=== PATIENT | male | born 1995 | race Caucasian/White ===

== ENCOUNTER → 2019-07-21 18:41 | Outpatient (BNVA) | payer OTHER, SELFPAY | PROVIDERS: Family Provider Internal Medicine; Visit Provider Nurse Practitioner | DX: S99.922A Unspecified injury of left foot, initial encounter (principal); X58.XXXA Exposure to other specified factors, initial encounter | CPT/HCPCS: 73630 ==

== ENCOUNTER → 2019-11-29 13:49 | Outpatient (BNVA) | payer OTHER, SELFPAY | PROVIDERS: Family Provider Internal Medicine; Visit Provider Psychiatry & Neurology Psychiatry | DX: F33.2 Major depressive disorder, recurrent severe without psychotic features (principal); F41.1 Generalized anxiety disorder; F11.21 Opioid dependence, in remission; F12.20 Cannabis dependence, uncomplicated; F43.12 Post-traumatic stress disorder, chronic | CPT/HCPCS: 99204 ==

== ENCOUNTER → 2020-01-08 08:04 | Outpatient (BNVA) | payer OTHER, SELFPAY | PROVIDERS: Family Provider Internal Medicine; Visit Provider Psychiatry & Neurology Psychiatry | DX: F41.1 Generalized anxiety disorder (principal); F33.2 Major depressive disorder, recurrent severe without psychotic features; F12.20 Cannabis dependence, uncomplicated; F11.21 Opioid dependence, in remission; F90.2 Attention-deficit hyperactivity disorder, combined type | CPT/HCPCS: 99214 ==

== ENCOUNTER → 2020-02-12 09:31 | Outpatient (BNVA) | payer OTHER, SELFPAY | PROVIDERS: Family Provider Internal Medicine; Visit Provider Psychiatry & Neurology Psychiatry | DX: F41.1 Generalized anxiety disorder (principal); F33.2 Major depressive disorder, recurrent severe without psychotic features; F11.21 Opioid dependence, in remission; F12.20 Cannabis dependence, uncomplicated | CPT/HCPCS: 99214 ==

== ENCOUNTER → 2020-02-14 17:49 | Outpatient (BNVA) | payer OTHER, SELFPAY | PROVIDERS: Family Provider Internal Medicine; Visit Provider Nurse Practitioner Family | DX: Z20.828 Contact with and (suspected) exposure to other viral communicable diseases (principal) | CPT/HCPCS: 87635 ==

== ENCOUNTER → 2020-02-17 11:49 | Outpatient (BNVA) | payer OTHER, SELFPAY | PROVIDERS: Family Provider Internal Medicine; Visit Provider Nurse Practitioner | DX: J02.9 Acute pharyngitis, unspecified (principal); J06.9 Acute upper respiratory infection, unspecified | CPT/HCPCS: 87071; 87880 ==

== ENCOUNTER → 2020-03-11 11:50 | Outpatient (BNVA) | payer OTHER, SELFPAY | PROVIDERS: Family Provider Internal Medicine; Visit Provider Psychiatry & Neurology Psychiatry | DX: F11.21 Opioid dependence, in remission (principal); F33.2 Major depressive disorder, recurrent severe without psychotic features; F41.1 Generalized anxiety disorder | CPT/HCPCS: 80307; 99213 ==

== ENCOUNTER → 2020-04-24 08:15 | Outpatient (BNVA) | payer OTHER, SELFPAY | PROVIDERS: Family Provider Internal Medicine; Visit Provider Psychiatry & Neurology Psychiatry | DX: F12.20 Cannabis dependence, uncomplicated (principal); F11.21 Opioid dependence, in remission; F41.1 Generalized anxiety disorder; F33.2 Major depressive disorder, recurrent severe without psychotic features | CPT/HCPCS: 99214 ==

== ENCOUNTER → 2020-06-19 09:45 | Outpatient (BNVA) | payer OTHER, SELFPAY | PROVIDERS: Family Provider Internal Medicine; Visit Provider Psychiatry & Neurology Psychiatry | DX: F41.1 Generalized anxiety disorder (principal); F33.2 Major depressive disorder, recurrent severe without psychotic features; F98.8 Other specified behavioral and emotional disorders with onset usually occurring in childhood and adolescence; F12.20 Cannabis dependence, uncomplicated; F11.21 Opioid dependence, in remission | CPT/HCPCS: 80307; 99214 ==

== ENCOUNTER → 2020-08-15 18:06 | Outpatient (BNVA) | payer OTHER, SELFPAY | PROVIDERS: Family Provider Internal Medicine; Visit Provider Nurse Practitioner | DX: J02.9 Acute pharyngitis, unspecified (principal) | CPT/HCPCS: 87880 ==

== ENCOUNTER → 2020-09-25 00:01 | Outpatient (BNVA) | payer OTHER, SELFPAY | PROVIDERS: Family Provider Internal Medicine; Visit Provider Psychiatry & Neurology Psychiatry | DX: F11.21 Opioid dependence, in remission (principal); F12.20 Cannabis dependence, uncomplicated; F41.1 Generalized anxiety disorder; F33.2 Major depressive disorder, recurrent severe without psychotic features; F98.8 Other specified behavioral and emotional disorders with onset usually occurring in childhood and adolescence | CPT/HCPCS: 80307 ==

== ENCOUNTER → 2020-10-03 10:06 | Outpatient (BNVA) | payer OTHER, SELFPAY | PROVIDERS: Family Provider Internal Medicine; Visit Provider Psychiatry & Neurology Psychiatry | DX: F12.20 Cannabis dependence, uncomplicated (principal); F11.21 Opioid dependence, in remission; F41.1 Generalized anxiety disorder; F33.2 Major depressive disorder, recurrent severe without psychotic features | CPT/HCPCS: 80307 ==

== ENCOUNTER → 2020-10-04 16:46 | Outpatient (BNVA) | payer OTHER, SELFPAY | PROVIDERS: Family Provider Internal Medicine; Visit Provider Registered Nurse Neonatal Intensive Care | DX: Z20.822 Contact with and (suspected) exposure to COVID-19 (principal) | CPT/HCPCS: 87635 ==

== ENCOUNTER → 2020-10-29 13:47 | Outpatient (BNVA) | payer SELFPAY | PROVIDERS: Family Provider Internal Medicine; Visit Provider Family Medicine Adult Medicine | DX: K51.90 Ulcerative colitis, unspecified, without complications (principal); R68.89 Other general symptoms and signs; Z83.49 Family history of other endocrine, nutritional and metabolic diseases; Z13.6 Encounter for screening for cardiovascular disorders; Z87.39 Personal history of other diseases of the musculoskeletal system and connective tissue | CPT/HCPCS: 80053; 83036; 84443; 85025; 86140; 86431 ==

== ENCOUNTER → 2021-03-31 13:10 | Outpatient (BNVA) | payer OTHER, MEDICAID, SELFPAY | PROVIDERS: Family Provider Internal Medicine; PCP Family Medicine Adult Medicine; Referring Provider Psychiatry & Neurology Psychiatry; Visit Provider Psychiatry & Neurology Psychiatry | DX: Z79.899 Other long term (current) drug therapy (principal) | CPT/HCPCS: 80307 ==

== ENCOUNTER → 2021-04-30 14:17 | Outpatient (BNVA) | payer MEDICAID, SELFPAY | PROVIDERS: Family Provider Internal Medicine; PCP Family Medicine Adult Medicine; Visit Provider Nurse Practitioner Psychiatric/Mental Health | DX: Z03.89 Encounter for observation for other suspected diseases and conditions ruled out (principal); Z79.899 Other long term (current) drug therapy | CPT/HCPCS: 80306 ==

== ENCOUNTER → 2021-05-13 13:51 | Outpatient (BNVA) | payer OTHER, SELFPAY | PROVIDERS: Family Provider Internal Medicine; PCP Family Medicine Adult Medicine; Visit Provider Family Medicine Adult Medicine | DX: R39.15 Urgency of urination (principal); N32.89 Other specified disorders of bladder; Z87.39 Personal history of other diseases of the musculoskeletal system and connective tissue | CPT/HCPCS: 81000 ==

== ENCOUNTER → 2021-06-01 10:24 | Outpatient (BNVA) | payer OTHER, SELFPAY | PROVIDERS: Family Provider Internal Medicine; PCP Family Medicine Adult Medicine; Visit Provider Nurse Practitioner Psychiatric/Mental Health | DX: Z03.89 Encounter for observation for other suspected diseases and conditions ruled out (principal); Z79.899 Other long term (current) drug therapy | CPT/HCPCS: 80053; 82306 ==

== ENCOUNTER → 2021-06-05 12:48 | Outpatient (BNVA) | payer OTHER, MEDICAID, SELFPAY | PROVIDERS: Family Provider Internal Medicine; PCP Family Medicine Adult Medicine; Visit Provider Internal Medicine | DX: M25.50 Pain in unspecified joint (principal); K51.90 Ulcerative colitis, unspecified, without complications; M79.7 Fibromyalgia; L40.9 Psoriasis, unspecified; Z87.39 Personal history of other diseases of the musculoskeletal system and connective tissue | CPT/HCPCS: 36415; 72072; 72100; 72202; 73120; 82550; 82607; 84425; 84443; 85025; 86160; 86162; 86200; 86235; 86255; 86376; 86431; 86480; 86704; 86803; 87340 ==

== ENCOUNTER 2021-06-30 06:00 | Outpatient (RCR) | payer OTHER, SELFPAY | END 2021-07-28 23:59 | disposition home or self-care (01) | LOC: SPT 06:00 | PROVIDERS: Family Provider Internal Medicine; PCP Family Medicine Adult Medicine; Referring Provider Internal Medicine; Visit Provider Internal Medicine | DX: M54.50 Low back pain, unspecified (principal); M25.50 Pain in unspecified joint | CPT/HCPCS: 97110; 97161 ==

== ENCOUNTER → 2021-07-09 11:03 | Outpatient (BNVA) | payer OTHER, MEDICAID, SELFPAY | PROVIDERS: Family Provider Internal Medicine; PCP Family Medicine Adult Medicine; Visit Provider Psychiatry & Neurology Psychiatry | DX: J30.9 Allergic rhinitis, unspecified (principal); J02.8 Acute pharyngitis due to other specified organisms; B96.89 Other specified bacterial agents as the cause of diseases classified elsewhere; F11.21 Opioid dependence, in remission; Z79.899 Other long term (current) drug therapy; F41.1 Generalized anxiety disorder; F33.2 Major depressive disorder, recurrent severe without psychotic features; F43.9 Reaction to severe stress, unspecified | CPT/HCPCS: 80307 ==

== ENCOUNTER → 2021-07-23 12:33 | Outpatient (BNVA) | payer OTHER, MEDICAID, SELFPAY | PROVIDERS: Family Provider Internal Medicine; PCP Family Medicine Adult Medicine; Visit Provider Psychiatry & Neurology Psychiatry | DX: J30.9 Allergic rhinitis, unspecified (principal); J02.8 Acute pharyngitis due to other specified organisms; B96.89 Other specified bacterial agents as the cause of diseases classified elsewhere; F11.21 Opioid dependence, in remission; Z79.899 Other long term (current) drug therapy; F43.9 Reaction to severe stress, unspecified; F33.2 Major depressive disorder, recurrent severe without psychotic features; F41.1 Generalized anxiety disorder | CPT/HCPCS: 80307 ==

== ENCOUNTER 2021-07-29 06:00 | Outpatient (RCR) | payer OTHER, SELFPAY | END 2021-08-27 23:59 | disposition home or self-care (01) | LOC: SPT 06:00 | PROVIDERS: Family Provider Internal Medicine; PCP Family Medicine Adult Medicine; Referring Provider Internal Medicine; Visit Provider Internal Medicine | DX: M54.59 Other low back pain (principal); M25.50 Pain in unspecified joint | CPT/HCPCS: 97110 ==

== ENCOUNTER 2022-06-07 09:15 | Inpatient (IN) | payer BC, MEDICAID, SELFPAY ==
[2022-06-07 09:18] VITALS: BP 148/94; PULSE 72; RESP 16; TEMP 36.7; O2SAT 99
[2022-06-07 10:02] LABS: Basophils % 0.4 %; Eosinophils # 0.2 10^3/uL (0.0-0.8); Hemoglobin 14.3 g/dL (11.7-16.6); Lymphocytes # 1.3 10^3/uL (0.8-4.8); Lymphocytes % 17.5 %; Mean Corpuscular HGB Conc 32.5 g/dL (30.0-36.0); Mean Corpuscular Hemoglobin 31.1 pg (28.0-34.0); Mean Corpuscular Volume 95.7 fl (80-94); Mean Platelet Volume 11.6 fL (7.4-10.4); Monocytes # 0.4 10^3/uL (0.2-0.9); Monocytes % 4.8 %; Nucleated Red Blood Cells % 0 %; Platelet Count 108 10^3/cmm (130-400); Red Cell Distribution Width 12.9 % (12.1-15.1); White Blood Count 7.3 10^3/uL (4.0-10.0)
--- NOTE | 2022-06-07 10:02 | W.ED.PSYCHS ---
Documented by User: MARQUIS Urbano 06/07/22 15:16 HPI - Psych General: Chief Complaint: Psychiatric Symptoms Stated Complaint: MHE Time Seen by Provider: 06/07/22 09:23 History of Present Illness: Patient is a 27-year-old male comes to the ED with SI. Patient has a past medical history of bipolar 1 disorder, generalized anxiety and PTSD. He is compliant with all his medications but states that every now and then he does forget to take his daily mirtazapine at night before bed. Patient has a history of SI and says he has been hospitalized multiple times for SI as a teenager and once as an adult. Over the past 3 weeks he has been having increased thoughts of SI. He has a loss of interest in activities, difficulty concentrating, decreased energy and is sleeping more. Today he told his that he is having thoughts of suicide and he had a plan to overdose on Benadryl. Patient admits to using marijuana but denies any other drug or alcohol use. Denies any thoughts of HI, auditory or visual hallucinations. Denies any other symptoms. Patient denied any chest pain, but endorses some generalized anxiety. Associated symptoms: Reports depression and suicidal ideation; Deny auditory hallucinations, visual hallucinations or homicidal ideation Review of Systems Const: Denies: fever(s), chills or fatigue Eyes: Denies: change in vision or eye discomfort ENMT: Denies: throat pain, odynophagia, nasal discharge or nasal congestion Card: Denies: chest pain, palpitations, edema, swelling of feet/ankles, dyspnea on exertion or orthopnea Resp: Denies: dyspnea, productive cough or non-productive cough GI: Denies: abdominal pain, nausea, vomiting, diarrhea, constipation or hematochezia : Denies: flank pain, difficulty urinating, dysuria or hematuria Musc: Denies: neck pain, back pain or extremity swelling Skin/Breast: Denies: rash or new lesions Neuro: Denies: headache(s), numbness in extremities or weakness in extremities Psych: Reports: anxiety, depression, sleeping more, loss of interest, difficulty concentrating and suicidal ideation; Denies: visual hallucinations, auditory hallucinations or homicidal ideation PFS ED PFSH: Medical History ADD (attention deficit disorder) Diagnosed at age of 8 yr old Allergic rhinitis due to allergen Anxiety and depression Bilateral headache Bipolar I disorder, most recent episode mixed, severe without psychotic features Chronic nausea Dental infection Fibromyalgia History of juvenile rheumatoid arthritis Irritable bowel syndrome (IBS) Problems with constipation in November and December 2021 and episodes of diarrhea and March and April 2022. Opioid use disorder, severe, in sustained remission, dependence Peripheral neuropathy Psychiatric care Restless leg syndrome Ulcerative colitis Vitamin D deficiency Family History Other CAD (coronary artery disease) Cancer Hypertension Stroke Denies family history of Rheumatoid arthritis Diabetes Lupus Hyperlipidemia Chronic kidney disease (CKD) Social History Smoking and tobacco status: current some day smoker (vape user occasionally) e-cigarettes E-Cigarette Details: vaporizer device and with nicotine E-cig/vape details: Refill(50 mg)/1 - 1.5 weeks. Quit status (tobacco): has tried quititng Number of times tried to quit tobacco: 10 Second hand smoke exposure: No Alcohol intake: current Alcohol intake frequency: holidays/special occasions only Alcohol type: beer Caregiver/support person: No Lives independently: Yes Household members: spouse Marital status: Number of children: 1 service: No Current gender identity: Male Physical Exam Const: COMMON NORMALS: no acute distress, patient oriented x3 and alert HENMT: COMMON NORMALS: normocephalic HEAD & SCALP: normocephalic MOUTH: Normal oral and palatal mucosa present THROAT: posterior oropharynx normal and uvula midline Neck/C-Spine: COMMON NORMALS: supple GENERAL: Yes normal visual inspection Resp: COMMON NORMALS: normal respiratory effort, No retractions, No use of accessory muscles and clear to auscultation bilaterally AUSCULTATION: clear to auscultation bilaterally Cardio: COMMON NORMALS: regular rate, regular rhythm, S1 normal heart sound present, S2 normal heart sound present, No gallops present (Cardio), No clicks present (Cardio), No murmurs present (Cardio) and Peripheral pulses 2+ throughout RATE: regular rate RHYTHM: regular rhythm HEART SOUNDS: S1 normal heart sound present and S2 normal heart sound present PERIPHERAL PULSES: Peripheral pulses 2+ throughout GI: COMMON NORMALS: Normal to inspection, nondistended, normoactive bowel sounds present, Soft to palpation, non-tender and no masses PALPATION: Yes Soft to palpation : COMMON NORMALS: Yes no CVA tenderness BLADDER/KIDNEY EXAM: Yes no CVA tenderness Back/Pelvis: COMMON NORMALS: no CVA tenderness Extremity: COMMON NORMALS: normal to inspection Neuro: COMMON NORMALS: patient oriented x3 SENSORIUM/ORIENTATION: Yes alert GAIT: Yes Normal gait present Skin: GENERAL SKIN EXAM: dry skin Course Vital Signs: Vital signs: Vital Signs Temperature 98.1 F 06/07/22 09:18 Pulse Rate 74 06/07/22 12:10 Respiratory Rate 16 06/07/22 12:10 Blood Pressure 138/84 06/07/22 12:10 Pulse Oximetry 97 06/07/22 12:10 [facility] - Psych Medical Decision Making Patient is a 27-year-old male comes to the ED with SI. Patient has a history of past SI and has been diagnosed with bipolar 1 disorder, anxiety, PTSD. Denies any chest pain but endorses some anxiety. Patient was given a dose of p.o. Ativan and has anxiety improved. Vitals are stable rest of exam is benign patient appears in no acute distress or pain and he is very cooperative. Psych medical clearance labs performed. Chart reviewed and patient discussed with midlevel. Agree with assessment and plan. Orders written for admission for suicidal ideation Lab Data 06/07/22 09:54 06/07/22 09:54 Laboratory Results WBC 7.3 10^3/uL (4.0-10.0) 06/07/22 09:54 RBC 4.60 10^6/uL (4.1-5.3) 06/07/22 09:54 Hgb 14.3 g/dL (11.7-16.6) 06/07/22 09:54 Hct 44.0 % (42.0-52.0) 06/07/22 09:54 MCV 95.7 fl (80-94) H 06/07/22 09:54 MCH 31.1 pg (28.0-34.0) 06/07/22 09:54 MCHC 32.5 g/dL (30.0-36.0) 06/07/22 09:54 RDW 12.9 % (12.1-15.1) 06/07/22 09:54 Plt Count 108 10^3/cmm (130-400) L 06/07/22 09:54 MPV 11.6 fL (7.4-10.4) H 06/07/22 09:54 Neut % (Auto) 75.0 % 06/07/22 09:54 Lymph % (Auto) 17.5 % 06/07/22 09:54 Brooke % (Auto) 4.8 % 06/07/22 09:54 Eos % (Auto) 2.0 % 06/07/22 09:54 Baso % (Auto) 0.4 % 06/07/22 09:54 Neut # (Auto) 5.50 10^3/uL (1.8-7.7) 06/07/22 09:54 Lymph # (Auto) 1.3 10^3/uL (0.8-4.8) 06/07/22 09:54 Brooke # (Auto) 0.4 10^3/uL (0.2-0.9) 06/07/22 09:54 Eos # (Auto) 0.2 10^3/uL (0.0-0.8) 06/07/22 09:54 Baso # (Auto) 0.0 10^3/uL (0.0-0.1) 06/07/22 09:54 Nucleated RBC % (auto) 0 % 06/07/22 09:54 Nucleated RBCs # 0.0 /100WBC 06/07/22 09:54 Sodium 135 mmol/L (136-145) L 06/07/22 09:54 Potassium 3.6 mmol/L (3.5-5.1) 06/07/22 09:54 Chloride 98 mmol/L (98-107) 06/07/22 09:54 Carbon Dioxide 30 mmol/L (22-29) H 06/07/22 09:54 Anion Gap 10.6 (5-19) 06/07/22 09:54 BUN 11 mg/dL (6-20) 06/07/22 09:54 Creatinine 0.9 mg/dL (0.7-1.2) 06/07/22 09:54 GFR Calculation 101.2 mL/min (90-130) 06/07/22 09:54 Glucose 104 mg/dL (65-115) 06/07/22 09:54 Calculated Osmolality 280 mOsm/kg (285-295) L 06/07/22 09:54 Calcium 9.4 mg/dL (8.5-10.5) 06/07/22 09:54 Total Bilirubin 0.3 mg/dL (0.15-1.2) 06/07/22 09:54 AST 17 U/L (0-40) 06/07/22 09:54 ALT 18 U/L (0-41) 06/07/22 09:54 Alkaline Phosphatase 63 U/L (40-130) 06/07/22 09:54 Total Protein 6.8 g/dL (6.6-8.7) 06/07/22 09:54 Albumin 4.6 g/dL (3.5-5.2) 06/07/22 09:54 Globulin 2.2 g/dL (1.3-4.6) 06/07/22 09:54 Urine Color Yellow (Yellow) 06/07/22 09:50 Urine Appearance Clear (CLEAR) 06/07/22 09:50 Urine pH 7 (5-7) 06/07/22 09:50 Ur Specific [place] 1.010 (1.005-1.030) 06/07/22 09:50 Urine Protein Neg (Negative) 06/07/22 09:50 Urine Glucose (UA) Norm (Normal) 06/07/22 09:50 Urine Ketones Negative (Negative) 06/07/22 09:50 Urine Blood Neg (Negative) 06/07/22 09:50 Urine Nitrate Negative (Negative) 06/07/22 09:50 Urine Bilirubin Neg (Negative) 06/07/22 09:50 Urine Urobilinogen Neg mg/dL (Negative) 06/07/22 09:50 Ur Leukocyte Esterase Negative (Negative) 06/07/22 09:50 Salicylates < 0.3 mg/dL (3-10) L 06/07/22 09:54 Urine Opiates Screen Negative ng/mL (Negative) 06/07/22 09:50 Acetaminophen < 5.0 ug/mL (10-30) L 06/07/22 09:54 Ur Barbiturates Screen Negative ng/mL (Negative) 06/07/22 09:50 Ur Phencyclidine Scrn Negative ng/mL (Negative) 06/07/22 09:50 Ur Amphetamines Screen Negative ng/mL (Negative) 06/07/22 09:50 U Benzodiazepines Scrn Negative ng/mL (Negative) 06/07/22 09:50 Urine Cocaine Screen Negative ng/mL (Negative) 06/07/22 09:50 U Marijuana (THC) Screen Positive ng/mL (Negative) H 06/07/22 09:50 Ethyl Alcohol < 10 mg/dL (0-10) 06/07/22 09:54 Discharge Plan Discharge Patient Disposition: Admitted As Inpatient Clinical Impression: Suicidal ideation Condition: Stable Sign Out Sign Out Data: Patient Sign Out occurred on 06/07/22 at 14:53. Patient's care was discussed, and care was transferred from to Ed Decker DO. Coding Level of Care Code ED Labor Economics Professor for Chg Fwd Documented by User: Ed Decker DO 06/07/22 14:55 HPI - Psych General: Chief Complaint: Psychiatric Symptoms Stated Complaint: MHE Time Seen by Provider: 06/07/22 09:23 [facility] ED PFSH: Medical History ADD (attention deficit disorder) Diagnosed at age of 8 yr old Allergic rhinitis due to allergen Anxiety and depression Bilateral headache Bipolar I disorder, most recent episode mixed, severe without psychotic features Chronic nausea Dental infection Fibromyalgia History of juvenile rheumatoid arthritis Irritable bowel syndrome (IBS) Problems with constipation in November and December 2021 and episodes of diarrhea and March and April 2022. Opioid use disorder, severe, in sustained remission, dependence Peripheral neuropathy Psychiatric care Restless leg syndrome Ulcerative colitis Vitamin D deficiency Family History Other CAD (coronary artery disease) Cancer Hypertension Stroke Denies family history of Rheumatoid arthritis Diabetes Lupus Hyperlipidemia Chronic kidney disease (CKD) Social History Smoking and tobacco status: current some day smoker (vape user occasionally) e-cigarettes E-Cigarette Details: vaporizer device and with nicotine E-cig/vape details: Refill(50 mg)/1 - 1.5 weeks. Quit status (tobacco): has tried quititng Number of times tried to quit tobacco: 10 Second hand smoke exposure: No Alcohol intake: current Alcohol intake frequency: holidays/special occasions only Alcohol type: beer Caregiver/support person: No Lives independently: Yes Household members: spouse Marital status: Number of children: 1 service: No Current gender identity: Male Course Vital Signs: Vital signs: Vital Signs Temperature 98.1 F 06/07/22 09:18 Pulse Rate 74 06/07/22 12:10 Respiratory Rate 16 06/07/22 12:10 Blood Pressure 138/84 06/07/22 12:10 Pulse Oximetry 97 06/07/22 12:10 MDM - Psych Medical Decision Making Chart reviewed and patient discussed with midlevel. Agree with assessment and plan. Orders written for admission for suicidal ideation Medical Records I reviewed the patient's medical records. Lab Data I reviewed the patient's lab results. 06/07/22 09:54 06/07/22 09:54 Laboratory Results WBC 7.3 10^3/uL (4.0-10.0) 06/07/22 09:54 RBC 4.60 10^6/uL (4.1-5.3) 06/07/22 09:54 Hgb 14.3 g/dL (11.7-16.6) 06/07/22 09:54 Hct 44.0 % (42.0-52.0) 06/07/22 09:54 MCV 95.7 fl (80-94) H 06/07/22 09:54 MCH 31.1 pg (28.0-34.0) 06/07/22 09:54 MCHC 32.5 g/dL (30.0-36.0) 06/07/22 09:54 RDW 12.9 % (12.1-15.1) 06/07/22 09:54 Plt Count 108 10^3/cmm (130-400) L 06/07/22 09:54 MPV 11.6 fL (7.4-10.4) H 06/07/22 09:54 Neut % (Auto) 75.0 % 06/07/22 09:54 Lymph % (Auto) 17.5 % 06/07/22 09:54 Brooke % (Auto) 4.8 % 06/07/22 09:54 Eos % (Auto) 2.0 % 06/07/22 09:54 Baso % (Auto) 0.4 % 06/07/22 09:54 Neut # (Auto) 5.50 10^3/uL (1.8-7.7) 06/07/22 09:54 Lymph # (Auto) 1.3 10^3/uL (0.8-4.8) 06/07/22 09:54 Brooke # (Auto) 0.4 10^3/uL (0.2-0.9) 06/07/22 09:54 Eos # (Auto) 0.2 10^3/uL (0.0-0.8) 06/07/22 09:54 Baso # (Auto) 0.0 10^3/uL (0.0-0.1) 06/07/22 09:54 Nucleated RBC % (auto) 0 % 06/07/22 09:54 Nucleated RBCs # 0.0 /100WBC 06/07/22 09:54 Sodium 135 mmol/L (136-145) L 06/07/22 09:54 Potassium 3.6 mmol/L (3.5-5.1) 06/07/22 09:54 Chloride 98 mmol/L (98-107) 06/07/22 09:54 Carbon Dioxide 30 mmol/L (22-29) H 06/07/22 09:54 Anion Gap 10.6 (5-19) 06/07/22 09:54 BUN 11 mg/dL (6-20) 06/07/22 09:54 Creatinine 0.9 mg/dL (0.7-1.2) 06/07/22 09:54 GFR Calculation 101.2 mL/min (90-130) 06/07/22 09:54 Glucose 104 mg/dL (65-115) 06/07/22 09:54 Calculated Osmolality 280 mOsm/kg (285-295) L 06/07/22 09:54 Calcium 9.4 mg/dL (8.5-10.5) 06/07/22 09:54 Total Bilirubin 0.3 mg/dL (0.15-1.2) 06/07/22 09:54 AST 17 U/L (0-40) 06/07/22 09:54 ALT 18 U/L (0-41) 06/07/22 09:54 Alkaline Phosphatase 63 U/L (40-130) 06/07/22 09:54 Total Protein 6.8 g/dL (6.6-8.7) 06/07/22 09:54 Albumin 4.6 g/dL (3.5-5.2) 06/07/22 09:54 Globulin 2.2 g/dL (1.3-4.6) 06/07/22 09:54 Urine Color Yellow (Yellow) 06/07/22 09:50 Urine Appearance Clear (CLEAR) 06/07/22 09:50 Urine pH 7 (5-7) 06/07/22 09:50 Ur Specific [place] 1.010 (1.005-1.030) 06/07/22 09:50 Urine Protein Neg (Negative) 06/07/22 09:50 Urine Glucose (UA) Norm (Normal) 06/07/22 09:50 Urine Ketones Negative (Negative) 06/07/22 09:50 Urine Blood Neg (Negative) 06/07/22 09:50 Urine Nitrate Negative (Negative) 06/07/22 09:50 Urine Bilirubin Neg (Negative) 06/07/22 09:50 Urine Urobilinogen Neg mg/dL (Negative) 06/07/22 09:50 Ur Leukocyte Esterase Negative (Negative) 06/07/22 09:50 Salicylates < 0.3 mg/dL (3-10) L 06/07/22 09:54 Urine Opiates Screen Negative ng/mL (Negative) 06/07/22 09:50 Acetaminophen < 5.0 ug/mL (10-30) L 06/07/22 09:54 Ur Barbiturates Screen Negative ng/mL (Negative) 06/07/22 09:50 Ur Phencyclidine Scrn Negative ng/mL (Negative) 06/07/22 09:50 Ur Amphetamines Screen Negative ng/mL (Negative) 06/07/22 09:50 U Benzodiazepines Scrn Negative ng/mL (Negative) 06/07/22 09:50 Urine Cocaine Screen Negative ng/mL (Negative) 06/07/22 09:50 U Marijuana (THC) Screen Positive ng/mL (Negative) H 06/07/22 09:50 Ethyl Alcohol < 10 mg/dL (0-10) 06/07/22 09:54 Discharge Plan Discharge Patient Disposition: Admitted As Inpatient Clinical Impression: Suicidal ideation Condition: Stable Sign Out Sign Out Data: Patient Sign Out occurred on 06/07/22 at 14:53. Patient's care was discussed, and care was transferred from to Ed Decker DO. Coding Level of Care Code ED Labor Economics Professor for Kilo Lange
[2022-06-07 10:16] LABS: Alanine Aminotransferase 18 U/L (0-41); Albumin Level 4.6 g/dL (3.5-5.2); Alkaline Phosphatase 63 U/L (40-130); Anion Gap 10.6 (5-19); Aspartate Amino Transferase 17 U/L (0-40); Blood Urea Nitrogen 11 mg/dL (6-20); Calcium 9.4 mg/dL (8.5-10.5); Carbon Dioxide 30 mmol/L (22-29); Chloride 98 mmol/L (98-107); Globulin 2.2 g/dL (1.3-4.6); Glomerular Filtration Rate 101.2 mL/min (90-130); Glucose 104 mg/dL (65-115); Osmolality Calculated 280 mOsm/kg (285-295); Potassium 3.6 mmol/L (3.5-5.1); Sodium 135 mmol/L (136-145); Total Bilirubin 0.3 mg/dL (0.15-1.2); Total Protein 6.8 g/dL (6.6-8.7)
[2022-06-07] MEDS: LORazepam 1 mg Tablet PO (10:16)
[2022-06-07 10:18] LABS: Acetaminophen < 5.0 ug/mL (10-30); Alcohol Level < 10 mg/dL (0-10); Salicylate < 0.3 mg/dL (3-10)
[2022-06-07 10:23] LABS: Add Urine Microscopic? NO; Charge for UA Resulting for Rev
[2022-06-07 10:38] LABS: Bilirubin Urine Neg (Negative); Blood Urine Neg (Negative); Glucose Urine UA Norm (Normal); Ketones Urine Negative (Negative); Leukocyte Esterase Urine Negative (Negative); Nitrate Urine Negative (Negative); Protein Urine Neg (Negative); Urine Appearance Clear (CLEAR); Urine Color Yellow (Yellow); Urobilinogen Urine Neg (Negative); pH Urine 7 (5-7)
[2022-06-07 10:45] LABS: Amphetamines Screen Urine Negative (Negative); Barbiturates Screen Urine Negative (Negative); Benzodiazepines Screen Urine Negative (Negative); Cocaine Screen Urine Negative (Negative); Opiate Screen Urine Negative (Negative); PCP Screen Urine Negative (Negative); THC Screen Urine Positive (Negative)
[2022-06-07 10:45] LABS: Slide Review Slide Review Perform
[2022-06-07 12:10] VITALS: BP 138/84; PULSE 74; RESP 16; O2SAT 97
[2022-06-07 16:44] VITALS: BP 129/86; PULSE 71; RESP 16; TEMP 36.7; O2SAT 99
[2022-06-07] MEDS: buprenorphine-naloxone 4-1 mg Film 1 EACH SUBLINGUAL (17:50)
[2022-06-07] MEDS: nicotine 2 mg Gum BUCCAL (17:50)
[2022-06-07] MEDS: mirtazapine 15 mg Tablet PO (19:28)
[2022-06-07] MEDS: CLONazepam 0.5 mg Tablet PO (19:28)
[2022-06-07 19:54] VITALS: BP 122/75; PULSE 66; RESP 16; TEMP 36.8; O2SAT 98
[2022-06-08 06:00] VITALS: BP 134/87; PULSE 88; RESP 20; TEMP 36.8; O2SAT 100
[2022-06-08] MEDS: hyDROXYzine 25 mg Capsule 50 MG PO (06:24)
[2022-06-08] MEDS: nicotine 2 mg Gum BUCCAL (06:25)
[2022-06-08] MEDS: CLONazepam 0.5 mg Tablet PO ×3 (07:50→19:35)
[2022-06-08] MEDS: ARIPiprazole 10 mg Tablet 5 MG PO (07:51)
[2022-06-08] MEDS: buprenorphine-naloxone 4-1 mg Film 1 EACH SUBLINGUAL ×2 (07:52→17:29)
[2022-06-08] MEDS: nicotine 4 mg lozenge MUCOUS MEM ×4 (07:53→15:45)
[2022-06-08] MEDS: OLANZapine 5 mg ODT PO (11:13)
--- NOTE | 2022-06-08 11:14 | PC.NURSE ---
pt approached this RN and stated that he was feeling agitated and rated it a 6/10 and anxious and rated it a 9/10. pt requested medication to ease the symptoms. Zyprexa was administered.
[2022-06-08 14:00] VITALS: BP 146/90; PULSE 83; RESP 16; TEMP 36.6; O2SAT 97
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
[2022-06-08] MEDS: mirtazapine 15 mg Tablet 22.5 MG PO (19:35)
[2022-06-08 19:54] VITALS: BP 118/75; PULSE 63; RESP 18; TEMP 36.4; O2SAT 98
[2022-06-09 06:00] VITALS: BP 116/75; PULSE 63; RESP 20; TEMP 36.3; O2SAT 98
[2022-06-09] MEDS: hyDROXYzine 25 mg Capsule 50 MG PO (06:55)
[2022-06-09] MEDS: nicotine 4 mg lozenge MUCOUS MEM ×3 (06:58→11:07)
[2022-06-09] MEDS: CLONazepam 0.5 mg Tablet PO ×2 (08:34→15:51)
[2022-06-09] MEDS: ARIPiprazole 10 mg Tablet PO (08:35)
[2022-06-09] MEDS: buprenorphine-naloxone 4-1 mg Film 1 EACH SUBLINGUAL (08:35)
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
[2022-06-09 15:50] VITALS: BP 116/75; PULSE 63; RESP 20; TEMP 36.3; O2SAT 98
== END 2022-06-09 16:13 | disposition home or self-care (01) | DRG 885 ==
LOC: ER 14:55 → NP 16:50
PROVIDERS: Physician Assistant; Admitting Provider Psychiatry & Neurology Psychiatry; Emergency Provider Family Medicine; PCP Family Medicine Adult Medicine; Visit Provider Psychiatry & Neurology Psychiatry
DX: F31.81 Bipolar II disorder (principal); R45.851 Suicidal ideations; F12.10 Cannabis abuse, uncomplicated; F90.9 Attention-deficit hyperactivity disorder, unspecified type; F41.0 Panic disorder [episodic paroxysmal anxiety]; F11.21 Opioid dependence, in remission; F10.11 Alcohol abuse, in remission; Z81.8 Family history of other mental and behavioral disorders; Z81.1 Family history of alcohol abuse and dependence; F41.9 Anxiety disorder, unspecified; M79.7 Fibromyalgia; G62.9 Polyneuropathy, unspecified; G25.81 Restless legs syndrome; F17.290 Nicotine dependence, other tobacco product, uncomplicated
CPT/HCPCS: 36415; 80053; 80306; 80307; 81003; 85025; 97150; 97165; 99285; J0573

== ENCOUNTER 2023-02-22 19:36 | Inpatient (IN) | payer BC, SELFPAY ==
[2023-02-22 19:37] VITALS: BP 115/80; PULSE 83; RESP 18; TEMP 37; O2SAT 94; BMI 24.3
--- NOTE | 2023-02-22 20:12 | W.ED.PSYCHS ---
HPI - Psych General: Chief Complaint: Psychiatric Symptoms Stated Complaint: SI Time Seen by Provider: 02/22/23 19:36 Source: patient Mode of arrival: ambulatory Limitations: no limitations History of Present Illness: 27-year-old male is here with his mother she states that he has a history of bipolar has not been taking his meds for months and has been on a decline. States that she got a call from his friend that he was stating that he is going to kill himself. Patient states has been drinking tonight and does not remember this but does admit he has not been taking his meds and has been worsening. Associated symptoms: Reports depression and suicidal ideation Review of Systems Const: Denies: fever(s) or chills ENMT: Denies: throat pain or dental pain Card: Denies: chest pain Resp: Denies: dyspnea GI: Denies: abdominal pain, nausea, vomiting or diarrhea : Denies: dysuria Musc: Denies: neck pain or back pain Skin/Breast: Denies: rash Neuro: Denies: headache(s) Psych: Reports: depression and suicidal ideation [facility] PFSH: Medical History Constipation Somnolence, daytime Nonscarring hair loss Psoriasis-like skin disease GERD (gastroesophageal reflux disease) Opioid dependence Bipolar 2 disorder Suicidal ideation Irritable bowel syndrome (IBS) Problems with constipation in November and December 2021 and episodes of diarrhea and March and April 2022. Restless leg syndrome Chronic nausea Allergic rhinitis due to allergen Peripheral neuropathy History of juvenile rheumatoid arthritis ADD (attention deficit disorder) Diagnosed at age of 8 yr old Fibromyalgia Ulcerative colitis Anxiety and depression Family History Other CAD (coronary artery disease) Cancer Hypertension Stroke Denies family history of Rheumatoid arthritis Diabetes Lupus Hyperlipidemia Chronic kidney disease (CKD) Social History Smoking and tobacco/nicotine status: current some day tobacco/nicotine user (vape user occasionally) e-cigarettes E-Cigarette Details: vaporizer device and with nicotine E-cig/vape details: Refill(50 mg)/1 - 1.5 weeks. Quit status (tobacco/nicotine): has tried quititng Number of times tried to quit tobacco: 10 Second hand smoke exposure: No Alcohol intake: current Alcohol intake frequency: holidays/special occasions only Alcohol type: beer Substance/Drug Use: former Date of last use: xanax, hydrocodone, oxycodone, heroin, klonopin, mushrooms, lsd, MDMA & thc Caregiver/support person: No Lives independently: Yes Household members: spouse Marital status: Number of children: 1 service: No Do you think of yourself as: Straight/Heterosexual Current gender identity: Male Physical Exam Const: COMMON NORMALS: no acute distress, patient oriented x3 and healthy appearing HENMT: COMMON NORMALS: normocephalic and atraumatic HEAD & SCALP: normocephalic and atraumatic Neck/C-Spine: COMMON NORMALS: full ROM and supple Chest: COMMONS NORMALS: normal inspection of the chest Resp: COMMON NORMALS: normal respiratory effort Cardio: COMMON NORMALS: regular rate, regular rhythm and No murmurs present (Cardio) RATE: regular rate RHYTHM: regular rhythm Extremity: COMMON NORMALS: normal to inspection and full ROM Neuro: COMMON NORMALS: patient oriented x3, moves all extremities and no focal motor deficits Psych: COMMON NORMALS: cooperative MOOD & AFFECT: Yes depressed mood THOUGHT CONTENT: Yes Suicidality present Skin: COMMON NORMALS: no rashes or lesions noted and no wounds GENERAL SKIN EXAM: no rashes or lesions noted Course Vital Signs: Vital signs: Vital Signs Temperature 98.6 F 02/22/23 19:37 Pulse Rate 83 02/22/23 19:37 Respiratory Rate 18 02/22/23 19:37 Blood Pressure 115/80 02/22/23 19:37 Pulse Oximetry 94 02/22/23 19:37 Oxygen Delivery Me thod Room Air 02/22/23 19:37 MDM - Psych Medical Decision Making Patient presents here with suicidal ideations along with bipolar has not been taking his meds patient placed under 96-hour hold I spoke to the psychiatrist will admit to the psychiatric and at this time. Medical Records I reviewed the patient's medical records. Lab Data I reviewed the patient's lab results. 02/22/23 20:12 02/22/23 20:12 Laboratory Results WBC 6.16 10^3/uL (3.29-11.43) 02/22/23 20:12 RBC 4.62 10^6/uL (3.85-5.65) 02/22/23 20:12 Hgb 14.40 g/dL (11.27-16.99) 02/22/23 20:12 Hct 42.7 % (37-53) 02/22/23 20:12 MCV 92.4 fl (82-101) 02/22/23 20:12 MCH 31.2 pg (27-33) 02/22/23 20:12 MCHC 33.7 g/dL (30-55) 02/22/23 20:12 RDW 12.6 % (12.1-15.1) 02/22/23 20:12 Plt Count 137 10^3/cmm (157-399) L 02/22/23 20:12 MPV 11.5 fL (7.4-10.4) H 02/22/23 20:12 Neut % (Auto) 54.1 % 02/22/23 20:12 Lymph % (Auto) 33.8 % 02/22/23 20:12 Faulk % (Auto) 6.3 % 02/22/23 20:12 Eos % (Auto) 4.9 % 02/22/23 20:12 Baso % (Auto) 0.3 % 02/22/23 20:12 Neut # (Auto) 3.33 10^3/uL (1.8-7.7) 02/22/23 20:12 Lymph # (Auto) 2.1 10^3/uL (0.8-4.8) 02/22/23 20:12 Faulk # (Auto) 0.4 10^3/uL (0.2-0.9) 02/22/23 20:12 Eos # (Auto) 0.3 10^3/uL (0.0-0.8) 02/22/23 20:12 Baso # (Auto) 0.0 10^3/uL (0.0-0.1) 02/22/23 20:12 Nucleated RBC % (auto) 0 % 02/22/23 20:12 Nucleated RBCs # 0.0 /100WBC 02/22/23 20:12 Sodium 140 mmol/L (136-145) 02/22/23 20:12 Potassium 3.7 mmol/L (3.5-5.1) 02/22/23 20:12 Chloride 103 mmol/L (98-107) 02/22/23 20:12 Carbon Dioxide 27 mmol/L (22-29) 02/22/23 20:12 Anion Gap 13.7 (5-19) 02/22/23 20:12 BUN 11 mg/dL (6-20) 02/22/23 20:12 Creatinine 1.0 mg/dL (0.7-1.2) 02/22/23 20:12 GFR Calculation 89.6 mL/min (90-130) L 02/22/23 20:12 Glucose 90 mg/dL (65-115) 02/22/23 20:12 Calculated Osmolality 289 mOsm/kg (285-295) 02/22/23 20:12 Calcium 9.6 mg/dL (8.5-10.5) 02/22/23 20:12 Total Bilirubin 0.2 mg/dL (0.15-1.2) 02/22/23 20:12 AST 18 U/L (0-40) 02/22/23 20:12 ALT 17 U/L (0-41) 02/22/23 20:12 Alkaline Phosphatase 71 U/L (40-130) 02/22/23 20:12 Total Protein 6.9 g/dL (6.6-8.7) 02/22/23 20:12 Albumin 4.5 g/dL (3.5-5.2) 02/22/23 20:12 Globulin 2.4 g/dL (1.3-4.6) 02/22/23 20:12 Salicylates 1.0 mg/dL (3-10) L 02/22/23 20:12 Acetaminophen < 5.0 ug/mL (10-30) L 02/22/23 20:12 Ethyl Alcohol 183 mg/dL (0-10) H 02/22/23 20:12 No radiology studies performed this visit Discharge Plan Discharge Patient Disposition: Admitted As Inpatient Clinical Impression: Suicidal ideation, Bipolar 2 disorder Condition: Stable Coding Level of Care Code ED Circular [employer] for [employer]
--- NOTE | 2023-02-22 20:16 | PC.NURSE ---
Patient was placed in cleared room. All belongings and clothes removed; patient was placed in psych scrubs. Sitter present with patient.
[2023-02-22 20:31] LABS: Basophils % 0.3 %; Eosinophils # 0.3 10^3/uL (0.0-0.8); Eosinophils % 4.9 %; Hematocrit 42.7 % (37-53); Lymphocytes # 2.1 10^3/uL (0.8-4.8); Lymphocytes % 33.8 %; Mean Corpuscular HGB Conc 33.7 g/dL (30-55); Mean Corpuscular Hemoglobin 31.2 pg (27-33); Mean Corpuscular Volume 92.4 fl (82-101); Mean Platelet Volume 11.5 fL (7.4-10.4); Monocytes # 0.4 10^3/uL (0.2-0.9); Monocytes % 6.3 %; Neutrophils # 3.33 10^3/uL (1.8-7.7); Neutrophils % 54.1 %; Nucleated Red Blood Cells % 0 %; Platelet Count 137 10^3/cmm (157-399); Red Blood Count 4.62 10^6/uL (3.85-5.65); Red Cell Distribution Width 12.6 % (12.1-15.1); White Blood Count 6.16 10^3/uL (3.29-11.43)
--- NOTE | 2023-02-22 20:32 | PC.NURSE ---
Pt served with copy of 96 HH by this RN and security. Family at bedside. All questions answered.
[2023-02-22 20:42] LABS: Alanine Aminotransferase 17 U/L (0-41); Albumin Level 4.5 g/dL (3.5-5.2); Alcohol Level 183 mg/dL (0-10); Alkaline Phosphatase 71 U/L (40-130); Anion Gap 13.7 (5-19); Aspartate Amino Transferase 18 U/L (0-40); Blood Urea Nitrogen 11 mg/dL (6-20); Calcium 9.6 mg/dL (8.5-10.5); Carbon Dioxide 27 mmol/L (22-29); Chloride 103 mmol/L (98-107); Globulin 2.4 g/dL (1.3-4.6); Glomerular Filtration Rate 89.6 mL/min (90-130); Glucose 90 mg/dL (65-115); Osmolality Calculated 289 mOsm/kg (285-295); Potassium 3.7 mmol/L (3.5-5.1); Sodium 140 mmol/L (136-145); Total Bilirubin 0.2 mg/dL (0.15-1.2); Total Protein 6.9 g/dL (6.6-8.7)
[2023-02-22 20:44] LABS: Acetaminophen < 5.0 ug/mL (10-30)
[2023-02-22 21:21] VITALS: BP 111/66; PULSE 66; RESP 16; O2SAT 92
[2023-02-22 21:26] VITALS: BP 113/84; PULSE 85; RESP 18; O2SAT 93
--- NOTE | 2023-02-22 21:27 | PC.NURSE ---
Report called to Lacey MOREAU in NPU. All questions and concerns addressed at time of report.
[2023-02-22 22:00] VITALS: BP 113/84; PULSE 85; RESP 18; O2SAT 93
--- NOTE | 2023-02-22 22:27 | PC.NURSE ---
ATTEMPT MADE TO GIVE THIAMINE 100MG IM, PT REFUSED.
[2023-02-23] MEDS: nicotine 4 mg lozenge MUCOUS MEM ×4 (07:39→18:08)
[2023-02-23] MEDS: multivitamin therapeutic Tablet 1 TAB PO (07:40)
[2023-02-23] MEDS: thiamine 100 mg Tablet PO (07:40)
[2023-02-23] MEDS: folic acid 1 mg Tablet PO (07:40)
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
[2023-02-23] MEDS: hyDROXYzine 25 mg Capsule 50 MG PO (07:47)
[2023-02-23] MEDS: ARIPiprazole 10 mg Tablet PO (08:49)
[2023-02-23 14:00] VITALS: BP 134/85; PULSE 82; RESP 18; TEMP 37.1; O2SAT 95
[2023-02-23 16:45] VITALS: RESP 18
[2023-02-23] MEDS: methadone 10 mg Tablet 70 MG PO (16:45)
[2023-02-23] MEDS: CLONazepam 0.5 mg Tablet PO ×2 (16:46→20:39)
[2023-02-23] MEDS: methylphenidate 10 mg Tablet PO (17:59)
[2023-02-23 20:26] VITALS: BP 120/82; PULSE 92; RESP 18; TEMP 36.8; O2SAT 97
[2023-02-23] MEDS: mirtazapine 30 mg Tablet PO (20:39)
[2023-02-24 08:56] VITALS: RESP 18
[2023-02-24] MEDS: methadone 10 mg Tablet 70 MG PO (08:56)
[2023-02-24] MEDS: thiamine 100 mg Tablet PO (08:57)
[2023-02-24] MEDS: ARIPiprazole 10 mg Tablet PO (08:57)
[2023-02-24] MEDS: methylphenidate 10 mg Tablet PO ×2 (08:57→17:16)
[2023-02-24] MEDS: folic acid 1 mg Tablet PO (08:58)
[2023-02-24] MEDS: multivitamin therapeutic Tablet 1 TAB PO (08:58)
[2023-02-24] MEDS: CLONazepam 0.5 mg Tablet PO ×3 (09:00→20:00)
[2023-02-24] MEDS: nicotine 4 mg lozenge MUCOUS MEM ×4 (09:03→20:01)
[2023-02-24 14:00] VITALS: BP 147/90; PULSE 96; RESP 20; TEMP 36.7; O2SAT 96
--- NOTE | 2023-02-24 17:54 | P.NPUPN_ITS ---
Subjective NPU 2 Subjective: 27-year-old white male admitted with naveed cidal ideation with a history of anxiety, ADHD, opiate dependence and bipolar 2 disorder. Patient had reported that he was feeling better on his current medication regimen. He had described having significant anxiety and described not being consistent with the use of Klonopin. Patient had been informed of the danger of taking Klonopin and alcohol and reported that he would no longer use alcohol at all. Patient had reported no significant problems with managing opiate since beginning methadone a few months ago. He had reported no side effects from his medications at this time. He had reported no change in his ability to stay on task with his Ritalin. Patient reported having no suicidal thoughts. He reported that he was motivated to return home soon as possible. Mental Status Exam 2 MSE Comments: Patient is a casually dressed white male who appeared his stated age and in mild to moderate distress. His gait was within normal limits. His hygiene was fair. There was no evidence of any abnormal involuntary motor movements tics tremors appreciated. His speech was normal in regards to rate rhythm and prosody. His mood was described as better. His affect remained somewhat flat. His thought process was linear logical and goal-directed. His thought content showed no evidence of homicidal ideation and no suicidal ideation. There was no clear evidence of delusional thinking. He did not appear to be responding to internal stimuli. He denied any auditory or visual hallucinations. His attention span appeared variable as he did appear distracted at times. His recent and remote memory were grossly intact. He was alert and oriented person place and time. His insight was poor, His judgment was poor. His impulse control was poor. Vitals/I&O/Wt Last Vital Signs Temp 98.1 F 02/24/23 14:00 Pulse 96 02/24/23 14:00 Resp 20 H 02/24/23 14:00 BP 147/90 02/24/23 14:00 Pulse Ox 96 02/24/23 14:00 O2 Del Method Room Air 02/23/23 20:26 Weight last 48 hrs Weight 77.111 kg Data NPU 02/22/23 20:12 02/22/23 20:12 A&P Assessment and plan (1) Bipolar 2 disorder: (2) Suicidal ideation: (3) Opioid dependence: Plan Patient is a 27-year-old white male admitted with suicidal ideation with a history of panic disorder, bipolar 2 disorder, ADHD and opioid dependence. 1. Engage patient in individual milieu and group therapy. 2. Therapeutic observation 15-minute checks on the unit. 3. Recommend sober living treatment at the highest level of care to which the patient is willing to commit. 4. Continue abilify 10mg daily, remeron 30mg at night, Klonopin .5mg tid, methylphenidate 10mg bid, 5. Psychoeducation provided regarding diagnoses and treatment options. Involuntary Hold Information 2 96 Hour Hold: 96 Hour Involuntary Admission: Yes 96 Hour Hold Ending Date: 03/01/22 96 Hour Hold Ending Time: 21:15 Attestations NPU 2 Medical Necessity Statement*: Inpatient hospitalization is medically necessary and deemed to be the clinically appropriate intervention at this time. We will monitor and make changes with his medications as indicated. Hs likely length of stay is 2 to 3 days. Coding Level of Care Code Acute Code for g Fwd Diagnoses Bipolar 2 disorder F31.81 Suicidal ideation R45.851 Opioid dependence F11.20
[2023-02-24] MEDS: mirtazapine 30 mg Tablet PO (20:01)
[2023-02-24 20:25] VITALS: BP 136/90; PULSE 98; RESP 18; TEMP 37.1; O2SAT 95
[2023-02-25 06:00] VITALS: RESP 16
[2023-02-25] MEDS: nicotine 4 mg lozenge MUCOUS MEM ×3 (08:19→13:21)
[2023-02-25 08:54] LABS: Amphetamines Screen Urine Negative (Negative); Barbiturates Screen Urine Negative (Negative); Benzodiazepines Screen Urine Negative (Negative); Cocaine Screen Urine Negative (Negative); Opiate Screen Urine Negative (Negative); PCP Screen Urine Negative (Negative); THC Screen Urine Positive (Negative)
[2023-02-25] MEDS: ARIPiprazole 10 mg Tablet PO (09:22)
[2023-02-25 09:23] VITALS: RESP 16; O2SAT 95
[2023-02-25] MEDS: methylphenidate 10 mg Tablet PO (09:23)
[2023-02-25] MEDS: methadone 10 mg Tablet 70 MG PO (09:23)
[2023-02-25] MEDS: multivitamin therapeutic Tablet 1 TAB PO (09:24)
[2023-02-25] MEDS: CLONazepam 0.5 mg Tablet PO (09:25)
[2023-02-25] MEDS: folic acid 1 mg Tablet PO (09:25)
[2023-02-25] MEDS: thiamine 100 mg Tablet PO (09:25)
[2023-02-25 14:00] VITALS: BP 126/91; PULSE 106; RESP 16; TEMP 36.8; O2SAT 99
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
[2023-02-25 15:35] VITALS: BP 126/91; PULSE 106; RESP 16; TEMP 36.8; O2SAT 99
== END 2023-02-25 15:45 | disposition home or self-care (01) | DRG 885 ==
LOC: ER 20:43 → NP 21:25
PROVIDERS: Admitting Provider Psychiatry & Neurology Psychiatry; Emergency Provider Emergency Medicine; PCP Family Medicine Adult Medicine; Visit Provider Psychiatry & Neurology Psychiatry
DX: F31.81 Bipolar II disorder (principal); R45.851 Suicidal ideations; F11.20 Opioid dependence, uncomplicated; F90.9 Attention-deficit hyperactivity disorder, unspecified type; F41.9 Anxiety disorder, unspecified; Z91.148 Patient's other noncompliance with medication regimen for other reason; F17.210 Nicotine dependence, cigarettes, uncomplicated; F12.90 Cannabis use, unspecified, uncomplicated; F10.90 Alcohol use, unspecified, uncomplicated; Y90.6 Blood alcohol level of 120-199 mg/100 ml
CPT/HCPCS: 36415; 80053; 80306; 80307; 85025; 97150; 97165; 99285

== ENCOUNTER 2023-06-22 15:59 | Emergency (ER) | payer BC, MEDICAID, SELFPAY ==
[2023-06-22] VITALS (29 sets, daily range): BP systolic 117–149; BP diastolic 59–89; PULSE 54–82; RESP 8–23; TEMP 36.7; O2SAT 91–100; BMI 25.5
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
[2023-06-22 16:22] LABS: Basophils # 0.1 10^3/uL (0.0-0.1); Basophils % 0.6 %; Eosinophils # 0.7 10^3/uL (0.0-0.8); Eosinophils % 7.8 %; Hematocrit 41.7 % (37-53); Lymphocytes # 2.9 10^3/uL (0.8-4.8); Lymphocytes % 33.8 %; Mean Corpuscular HGB Conc 33.8 g/dL (30-55); Mean Corpuscular Hemoglobin 31.8 pg (27-33); Mean Corpuscular Volume 94.1 fl (82-101); Mean Platelet Volume 12.2 fL (7.4-10.4); Monocytes # 0.7 10^3/uL (0.2-0.9); Monocytes % 8.6 %; Neutrophils # 4.14 10^3/uL (1.8-7.7); Neutrophils % 48.4 %; Nucleated Red Blood Cells % 0 %; Platelet Count 165 10^3/cmm (157-399); Red Blood Count 4.43 10^6/uL (3.85-5.65); Red Cell Distribution Width 12.4 % (12.1-15.1); White Blood Count 8.57 10^3/uL (3.29-11.43)
[2023-06-22 16:36] LABS: Alanine Aminotransferase 52 U/L (0-41); Albumin Level 4.6 g/dL (3.5-5.2); Alkaline Phosphatase 84 U/L (40-130); Anion Gap 12.3 (5-19); Aspartate Amino Transferase 80 U/L (0-40); Blood Urea Nitrogen 12 mg/dL (6-20); Carbon Dioxide 32 mmol/L (22-29); Chloride 102 mmol/L (98-107); Creatinine Clr Calc Pharmacy 84.5507; Globulin 2.3 g/dL (1.3-4.6); Glomerular Filtration Rate 60.3 mL/min (90-130); Glucose 124 mg/dL (65-115); Osmolality Calculated 295 mOsm/kg (285-295); Potassium 4.3 mmol/L (3.5-5.1); Sodium 142 mmol/L (136-145); Total Bilirubin 0.3 mg/dL (0.15-1.2); Total Protein 6.9 g/dL (6.6-8.7)
[2023-06-22] MEDS: iohexol 350 mg/mL 500 mL Btl (per mL) IV (16:42)
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
[2023-06-22 18:41] LABS: Add Urine Microscopic? NO; Charge for UA Resulting for Rev
[2023-06-22 18:49] LABS: Bilirubin Urine Neg (Negative); Blood Urine Neg (Negative); Glucose Urine UA Norm (Normal); Ketones Urine Negative (Negative); Leukocyte Esterase Urine Negative (Negative); Nitrate Urine Negative (Negative); Protein Urine Neg (Negative); Urine Appearance Clear (CLEAR); Urine Color Yellow (Yellow); Urobilinogen Urine Norm (Negative); pH Urine 5 (5-7)
== END 2023-06-22 20:06 | disposition home or self-care (01) ==
PROVIDERS: Emergency Provider Family Medicine; PCP Family Medicine Adult Medicine
DX: M79.18 Myalgia, other site (principal); F17.290 Nicotine dependence, other tobacco product, uncomplicated
CPT/HCPCS: 70450; 70486; 71260; 72125; 74177; 80053; 81003; 85025; 99285; Q9967

== ENCOUNTER 2023-09-17 01:29 | Emergency (ER) | payer BC, MEDICAID, SELFPAY ==
[2023-09-17 01:37] VITALS: BP 152/102; PULSE 109; RESP 20; TEMP 36.8; O2SAT 91; BMI 23.5
--- NOTE | 2023-09-17 01:55 | USR_ITS ---
PROCEDURE INFORMATION: Exam: US Scrotum Exam date and time: 09/17/2023 3:01 AM Age: 28 years old Clinical indication: Scrotum pain; Additional info: Sudden onset testicular pain TECHNIQUE: Imaging protocol: Real-time ultrasound of the scrotum and contents with color Doppler and image documentation. COMPARISON: US scrotum [id number] 10/22/2016 2:38 PM FINDINGS: Right testicle: Normal. No mass. Normal color Doppler and arterial waveforms. No torsion. Left testicle: Normal. No mass. Normal color Doppler and arterial waveforms. No torsion. Epididymides: Normal. Extratesticular spaces: Right-sided varicocele. Scrotum/soft tissues: Normal. US/US scrotum [id number] IMPRESSION: Right-sided varicocele.
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
[2023-09-17 02:11] VITALS: RESP 18; O2SAT 99
[2023-09-17] MEDS: fentaNYL 50 mcg/mL INJ 2mL XX (02:11)
[2023-09-17 02:52] VITALS: BP 147/91; PULSE 75; O2SAT 96
[2023-09-17 03:14] VITALS: BP 127/81; PULSE 96; O2SAT 97
== END 2023-09-17 03:49 | disposition home or self-care (01) ==
PROVIDERS: Emergency Provider Emergency Medicine; PCP Family Medicine Adult Medicine
DX: I86.1 Scrotal varices (principal); Z79.891 Long term (current) use of opiate analgesic; F17.290 Nicotine dependence, other tobacco product, uncomplicated
CPT/HCPCS: 76870; 96374; 99284; J3010

== ENCOUNTER 2023-10-19 13:40 | Inpatient (IN) | payer BC, SELFPAY ==
[2023-10-19 13:49] VITALS: BP 144/100; PULSE 113; RESP 18; TEMP 37.2; O2SAT 99
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
[2023-10-19 14:29] LABS: Basophils % 0.3 %; Eosinophils # 0.1 10^3/uL (0.0-0.8); Eosinophils % 1.8 %; Hematocrit 44.8 % (37-53); Lymphocytes # 1.1 10^3/uL (0.8-4.8); Lymphocytes % 13.6 %; Mean Corpuscular HGB Conc 33.7 g/dL (30-55); Mean Corpuscular Hemoglobin 31.9 pg (27-33); Mean Corpuscular Volume 94.7 fl (82-101); Mean Platelet Volume 11.3 fL (7.4-10.4); Monocytes # 0.6 10^3/uL (0.2-0.9); Monocytes % 7.9 %; Neutrophils # 5.99 10^3/uL (1.8-7.7); Neutrophils % 76.3 %; Nucleated Red Blood Cells % 0 %; Platelet Count 136 10^3/cmm (157-399); Red Blood Count 4.73 10^6/uL (3.85-5.65); Red Cell Distribution Width 13.4 % (12.1-15.1); White Blood Count 7.85 10^3/uL (3.29-11.43)
[2023-10-19 14:39] LABS: Acetaminophen < 5.0 ug/mL (10-30); Alanine Aminotransferase 18 U/L (0-41); Albumin Level 4.8 g/dL (3.5-5.2); Alcohol Level 141 mg/dL (0-10); Alkaline Phosphatase 120 U/L (40-130); Anion Gap 14.5 (5-19); Aspartate Amino Transferase 27 U/L (0-40); Blood Urea Nitrogen 11 mg/dL (6-20); Calcium 9.7 mg/dL (8.5-10.5); Carbon Dioxide 30 mmol/L (22-29); Chloride 102 mmol/L (98-107); Creatinine Clr Calc Pharmacy 118.9359; Globulin 2.7 g/dL (1.3-4.6); Glucose 94 mg/dL (65-115); Osmolality Calculated 295 mOsm/kg (285-295); Potassium 3.5 mmol/L (3.5-5.1); Salicylate < 0.3 mg/dL (3-10); Sodium 143 mmol/L (136-145); Total Bilirubin 0.5 mg/dL (0.15-1.2); Total Protein 7.5 g/dL (6.6-8.7)
[2023-10-19 15:24] VITALS: BP 114/74; PULSE 81; RESP 14; O2SAT 92
--- NOTE | 2023-10-19 16:17 | PC.NURSE ---
pt resting in bed with eyes closed. resp even and non labored. No signs of physical at this time.
--- NOTE | 2023-10-19 17:51 | PC.NURSE ---
96 hour hold rights read and reviewed with patient alogn with Deputy Cardoza from [facility]. Patient appears to be intoxicated at this time, but he did verbalize understandings. Copy of rights left at the bedside.
[2023-10-19 18:21] VITALS: BP 140/88; PULSE 111; RESP 18; TEMP 36.6; O2SAT 100
[2023-10-19 21:04] VITALS: BP 142/94; PULSE 122; RESP 20; TEMP 37.2; O2SAT 98
[2023-10-19] MEDS: trazodone 50 mg Tablet PO (22:21)
[2023-10-19 23:04] LABS: Amphetamines Screen Urine Positive (Negative); Barbiturates Screen Urine Negative (Negative); Benzodiazepines Screen Urine Positive (Negative); Cocaine Screen Urine Negative (Negative); Opiate Screen Urine Negative (Negative); PCP Screen Urine Negative (Negative); THC Screen Urine Positive (Negative)
[2023-10-19 23:49] VITALS: RESP 17
--- NOTE | 2023-10-19 23:49 | PC.NURSE ---
Midnight vital signs not done due to patient just being able to lay down and rest. RR 17 / even & nonlabored.
[2023-10-20] MEDS: LORazepam 2 mg Tablet PO (00:38)
[2023-10-20 00:39] VITALS: BP 122/82; PULSE 91; RESP 18; O2SAT 100
[2023-10-20 07:24] VITALS: BP 135/79; PULSE 114; RESP 16; TEMP 36.4; O2SAT 99
[2023-10-20] MEDS: nicotine 4 mg lozenge MUCOUS MEM ×2 (09:41→15:34)
[2023-10-20] MEDS: methylphenidate 10 mg Tablet 20 MG PO (09:41)
[2023-10-20] MEDS: multivitamin therapeutic Tablet 1 TAB PO (09:42)
[2023-10-20] MEDS: folic acid 1 mg Tablet PO (09:42)
[2023-10-20] MEDS: thiamine 100 mg Tablet PO (09:42)
[2023-10-20] MEDS: hyDROXYzine 25 mg Capsule 50 MG PO ×2 (10:47→20:04)
[2023-10-20] MEDS: blistex lip oint 7 gm Tube 1 APPLIC TOPICAL (10:49)
[2023-10-20 12:00] VITALS: BP 143/94; PULSE 119; RESP 19; TEMP 36.6; O2SAT 98
[2023-10-20] MEDS: methadone 10 mg Tablet 30 MG PO (14:45)
[2023-10-20] MEDS: methylphenidate 10 mg Tablet PO (14:45)
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
[2023-10-20 16:00] VITALS: BP 137/99; PULSE 120; RESP 16; TEMP 37.6; O2SAT 100
[2023-10-20 19:49] VITALS: BP 132/92; PULSE 103; RESP 18; TEMP 37.3; O2SAT 99
[2023-10-20] MEDS: trazodone 50 mg Tablet PO (20:04)
[2023-10-20 22:49] VITALS: BP 123/84; PULSE 94; RESP 18; TEMP 36.7; O2SAT 96
[2023-10-21] VITALS (7 sets, daily range): BP systolic 111–149; BP diastolic 71–105; PULSE 80–114; RESP 16–18; TEMP 36.4–37.4; O2SAT 97–100
[2023-10-21] MEDS: methylphenidate 10 mg Tablet 20 MG PO (08:46)
[2023-10-21] MEDS: folic acid 1 mg Tablet PO (08:46)
[2023-10-21] MEDS: thiamine 100 mg Tablet PO (08:47)
[2023-10-21] MEDS: multivitamin therapeutic Tablet 1 TAB PO (08:47)
[2023-10-21] MEDS: methadone 10 mg Tablet 30 MG PO (08:47)
[2023-10-21] MEDS: nicotine 4 mg lozenge MUCOUS MEM ×3 (09:50→16:56)
[2023-10-21] MEDS: hyDROXYzine 25 mg Capsule 50 MG PO ×2 (10:32→20:01)
--- NOTE | 2023-10-21 13:25 | P.NPUPN_ITS ---
Subjective NPU 2 Subjective: Patient presented today reporting that he did not feel appropriately evaluated yesterday. His mother came and there was significant frustration and concerns about where things are going to be headed. Staff reported significant passive- aggressive behavior and this was noted on direct examination. Patient talked about many grievances but in his conversations rarely if ever spoke of any behaviors that he needed to adjust. This was in the face of a urine drug screen positive for cannabis benzodiazepines and amphetamines as well as a BAL positive for alcohol. We discussed the fact that he has had elevated liver enzymes during visits to the hospital and that even though he reported trusting himself and no one else we talked about his inability to count himself for appropriate choices. We discussed whether restarting the medication would be helpful versus focusing on sobriety and medications later. Mental Status Exam 2 MSE Comments: This is a slender white male in hospital scrubs with limited grooming and eye contact. No abnormal movements. Mostly cooperative with exam in mild to moderate distress. Speech was mostly normal rate and volume. Mood described as sorry I was earlier, affect slightly subdued. Thought process organized. Thought content: Patient denied suicidal or homicidal ideation, there were no delusions reported or noted, the auditory hallucinations. Attention and concentration appeared intact and memory was somewhat reliable but none were formally tested. He is alert and oriented x 3. Insight and judgment are limited and impulse control is impaired. Vitals/I&O/Wt Last Vital Signs Temp 98.5 F 10/21/23 12:00 Pulse 88 10/21/23 12:00 Resp 16 10/21/23 12:00 BP 146/78 10/21/23 12:00 Pulse Ox 98 10/21/23 12:00 O2 Del Method Room Air 10/21/23 12:00 Weight last 48 hrs Weight 81.647 kg Data NPU 10/19/23 14:19 10/19/23 14:02 A&P Assessment and plan (1) Bipolar 2 disorder: (2) Suicidal ideation: (3) Opioid dependence: Qualifiers: Substance use status: with opioid-induced mood disorder Qualified Code(s): F11.24 - Opioid dependence with opioid-induced mood disorder (4) ADD (attention deficit disorder): Qualifiers: Hyperactivity presence: present Attention deficit-hyperactivity disorder type: predominantly inattentive Qualified Code(s): 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, predominantly inattentive type (5) Anxiety and depression: (6) Suicidal ideation: (7) Methamphetamine use disorder, severe: (8) Alcohol use disorder, severe, dependence: (9) Suicidal ideation: Plan Patient is a 27-year-old white male who has been previously admitted with suicidal ideation with a history of panic disorder, bipolar 2 disorder, ADHD and opioid dependence on methadone with previous history of being treated with Klonopin and Ritalin presents also using cigarettes and cannabis and drinking as well as methamphetamine use. 1. Encourage individual, group and milieu therapy. 2. Therapeutic observation 15-minute checks on the unit. 3. Recommend sober living treatment at the highest level of care to which the patient is willing to commit. 4. We will consider restarting medications and evaluate for safety given 96- hour hold 5. Obtain collateral information. Involuntary Hold Information 2 96 Hour Hold: 96 Hour Involuntary Admission: Yes 96 Hour Hold Ending Date: 10/25/23 96 Hour Hold Ending Time: 17:35 Attestations NPU 2 Medical Necessity Statement*: Inpatient hospitalization is medically necessary and the clinically appropriate intervention at this time. We will monitor and make changes to medications as indicated. His likely length of stay is 3-5 days. Coding Level of Care Code Acute Code for [facility] Diagnoses Bipolar 2 disorder F31.81 Suicidal ideation R45.851 Opioid dependence with opioid-induced mood disorder F11.24 Substance use status: with opioid-induced mood disorder Attention deficit hyperactivity disorder (ADHD), predominantly inattentive type F90.0 Hyperactivity presence: present Attention deficit-hyperactivity disorder type: predominantly inattentive Anxiety and depression F41.9; F32.9 Methamphetamine use disorder, severe F15.20 Alcohol use disorder, severe, dependence F10.20
[2023-10-21] MEDS: methylphenidate 10 mg Tablet PO (14:14)
[2023-10-21] MEDS: trazodone 50 mg Tablet PO (20:01)
[2023-10-21] MEDS: acetaminophen 325 mg Tablet 650 MG PO (20:01)
[2023-10-21 23:12] LABS: Adenovirus Not Detected (NOT DETECT); Chlamydia Pneumoniae Not Detected (NOT DETECT); Coronavirus 229E,HKU1,NL63,OC4 Not Detected (NOT DETECT); Human Metapneumovirus Not Detected (NOT DETECT); Human Rhinovirus/Enterovirus Not Detected (NOT DETECT); Influenza A Not Detected (NOT DETECT); Influenza A H1 Not Detected (NOT DETECT); Influenza A H1-2009 Not Detected (NOT DETECT); Influenza A H3 Not Detected (NOT DETECT); Influenza B Not Detected (NOT DETECT); Mycoplasma Pneumoniae Not Detected (NOT DETECT); Parainfluenza Virus Type 1 Not Detected (NOT DETECT); Parainfluenza Virus Type 2 Not Detected (NOT DETECT); Parainfluenza Virus Type 3 Not Detected (NOT DETECT); Parainfluenza Virus Type 4 Not Detected (NOT DETECT); Respiratory Syncytial Virus A Not Detected (NOT DETECT); Respiratory Syncytial Virus B Not Detected (NOT DETECT); SARS-COV-2 Not Detected (NOT DETECT)
[2023-10-22] VITALS (7 sets, daily range): BP systolic 99–165; BP diastolic 67–93; PULSE 57–107; RESP 16–17; TEMP 36.3–36.9; O2SAT 95–100
[2023-10-22] MEDS: multivitamin therapeutic Tablet 1 TAB PO (07:38)
[2023-10-22] MEDS: thiamine 100 mg Tablet PO (07:38)
[2023-10-22] MEDS: folic acid 1 mg Tablet PO (07:38)
[2023-10-22] MEDS: methylphenidate 10 mg Tablet 20 MG PO (07:38)
[2023-10-22] MEDS: nicotine 4 mg lozenge MUCOUS MEM ×3 (07:38→17:21)
[2023-10-22] MEDS: methadone 10 mg Tablet 30 MG PO (07:39)
[2023-10-22] MEDS: hyDROXYzine 25 mg Capsule 50 MG PO (09:04)
--- NOTE | 2023-10-22 09:53 | P.NPUPN_ITS ---
Subjective NPU 2 Subjective: Patient presenting today with reports of doing better than yesterday. At 1 point he apologized for his irritable approach to our encounter. We continued to discuss the central role that addiction plays in essentially everything he discussed. We discussed how his sobriety could impact his custody hearing and the importance of focusing on his sobriety and not that of his ex given that his sobriety is the only thing he could have control over. We discussed Dr. Pillai coming tomorrow and him also being supportive of pursuing addiction treatment. Mental Status Exam 2 MSE Comments: This is a slender white male in hospital scrubs with limited grooming and eye contact. No abnormal movements. Mostly cooperative with exam in mild to moderate distress. Speech was mostly normal rate and volume. Mood described as sorry I was earlier, affect slightly subdued. Thought process organized. Thought content: Patient denied suicidal or homicidal ideation, there were no delusions reported or noted, the auditory hallucinations. Attention and concentration appeared intact and memory was somewhat reliable but none were formally tested. He is alert and oriented x 3. Insight and judgment are limited and impulse control is impaired. Vitals/I&O/Wt Last Vital Signs Temp 98.4 F 10/22/23 16:00 Pulse 107 H 10/22/23 16:00 Resp 16 10/22/23 16:00 BP 150/86 10/22/23 16:00 Pulse Ox 99 10/22/23 16:00 O2 Del Method Room Air 10/22/23 16:00 Weight last 48 hrs Weight 81.647 kg Data NPU 10/19/23 14:19 10/19/23 14:02 A&P Assessment and plan (1) Bipolar 2 disorder: (2) Suicidal ideation: (3) Opioid dependence: Qualifiers: Substance use status: with opioid-induced mood disorder Qualified Code(s): F11.24 - Opioid dependence with opioid-induced mood disorder (4) ADD (attention deficit disorder): Qualifiers: Hyperactivity presence: present Attention deficit-hyperactivity disorder type: predominantly inattentive Qualified Code(s): 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, predominantly inattentive type (5) Anxiety and depression: (6) Suicidal ideation: (7) Methamphetamine use disorder, severe: (8) Alcohol use disorder, severe, dependence: (9) Suicidal ideation: Plan Patient is a 27-year-old white male who has been previously admitted with suicidal ideation with a history of panic disorder, bipolar 2 disorder, ADHD and opioid dependence on methadone with previous history of being treated with Klonopin and Ritalin presents also using cigarettes and cannabis and drinking as well as methamphetamine use. 1. Encourage individual, group and milieu therapy. 2. Therapeutic observation 15-minute checks on the unit. 3. Recommend sober living treatment at the highest level of care to which the patient is willing to commit. 4. We will consider restarting medications and evaluate for safety given 96- hour hold. He is reporting a desire to plan to go to rehab or sober living treatment and consider restarting medications after he sees how he does sober. 5. Obtain collateral information. Involuntary Hold Information 2 96 Hour Hold: 96 Hour Involuntary Admission: Yes 96 Hour Hold Ending Date: 10/25/23 96 Hour Hold Ending Time: 17:35 Attestations NPU 2 Medical Necessity Statement*: Inpatient hospitalization is medically necessary and the clinically appropriate intervention at this time. We will monitor and make changes to medications as indicated. His likely length of stay is 2-4 days. Coding Level of Care Code Acute Code for [facility] Fwd Diagnoses Bipolar 2 disorder F31.81 Suicidal ideation R45.851 Opioid dependence with opioid-induced mood disorder F11.24 Substance use status: with opioid-induced mood disorder Attention deficit hyperactivity disorder (ADHD), predominantly inattentive type F90.0 Hyperactivity presence: present Attention deficit-hyperactivity disorder type: predominantly inattentive Anxiety and depression F41.9; F32.9 Methamphetamine use disorder, severe F15.20 Alcohol use disorder, severe, dependence F10.20
[2023-10-22] MEDS: methylphenidate 10 mg Tablet PO (15:29)
[2023-10-22] MEDS: trazodone 50 mg Tablet PO (20:04)
[2023-10-23] VITALS: BP 121/82; PULSE 97; RESP 17; TEMP 36.5; O2SAT 100
[2023-10-23 04:00] VITALS: BP 133/81; PULSE 96; RESP 17; TEMP 36.5; O2SAT 98
[2023-10-23 06:00] VITALS: BMI 25.8
[2023-10-23] MEDS: nicotine 4 mg lozenge MUCOUS MEM ×2 (06:16→10:13)
[2023-10-23] MEDS: methylphenidate 10 mg Tablet 20 MG PO (07:47)
[2023-10-23] MEDS: hyDROXYzine 25 mg Capsule 50 MG PO (07:48)
[2023-10-23] MEDS: folic acid 1 mg Tablet PO (07:48)
[2023-10-23] MEDS: multivitamin therapeutic Tablet 1 TAB PO (07:48)
[2023-10-23] MEDS: thiamine 100 mg Tablet PO (07:48)
[2023-10-23] MEDS: methadone 10 mg Tablet 30 MG PO (07:48)
[2023-10-23 07:55] VITALS: BP 141/93; PULSE 118; RESP 16; TEMP 37.2; O2SAT 97
[2023-10-23 11:49] VITALS: BP 137/102; PULSE 98; RESP 16; TEMP 36.8; O2SAT 100
[2023-10-23] MEDS: OLANZapine 5 mg ODT PO (11:59)
[2023-10-23] MEDS: methylphenidate 10 mg Tablet PO (14:27)
[2023-10-23 16:00] VITALS: BP 145/104; PULSE 83; RESP 16; TEMP 36.8; O2SAT 100
--- NOTE | 2023-10-23 17:18 | P.NPUPN_ITS ---
Subjective NPU 2 Subjective: 28-year-old male with a history of opiat e dependence, binge alcohol consumption and methamphetamine abuse admitted with suicidal ideation currently on an involuntary hold. Patient reported that he was interested in considering substance abuse treatment. He had reported chronic problems with ADHD since his childhood. He reported no side effects from his medications currently. He had reported having struggled with depression but stated that he was no longer suicidal. He had reported that his family had been concerned about his substance use and stated that his struggles with substance abuse had led to his separation from his . Mental Status Exam 2 MSE Comments: This is a slender white male in hospital scrubs with limited grooming and eye contact. No abnormal involuntary motor movements. He was cooperative with exam in mild distress. His speech was mostly normal in rate and volume. Mood described as okay. His affect appeared flat. Thought process was organized. Thought content: Patient denied suicidal or homicidal ideation, There were no delusions reported or noted, the auditory hallucinations. Attention and concentration appeared intact and memory was somewhat reliable but none were formally tested. He is alert and oriented x 3. Insight and judgment are limited and impulse control is impaired. Vitals/I&O/Wt Last Vital Signs Temp 98.2 F 10/23/23 16:00 Pulse 83 10/23/23 16:00 Resp 16 10/23/23 16:00 BP 145/104 10/23/23 16:00 Pulse Ox 100 10/23/23 16:00 O2 Del Method Room Air 10/23/23 16:00 Weight last 48 hrs Weight 81.647 kg Data NPU 10/19/23 14:19 10/19/23 14:02 A&P Assessment and plan (1) Bipolar 2 disorder: (2) Suicidal ideation: (3) Opioid dependence: Qualifiers: Substance use status: with opioid-induced mood disorder Qualified Code(s): F11.24 - Opioid dependence with opioid-induced mood disorder (4) ADD (attention deficit disorder): Qualifiers: Hyperactivity presence: present Attention deficit-hyperactivity disorder type: predominantly inattentive Qualified Code(s): 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, predominantly inattentive type (5) Anxiety and depression: (6) Suicidal ideation: (7) Methamphetamine use disorder, severe: (8) Alcohol use disorder, severe, dependence: (9) Suicidal ideation: Plan Patient is a 28-year-old white male who has been previously admitted with suicidal ideation with a history of panic disorder, bipolar 2 disorder, ADHD and opioid dependence on methadone with previous history of being treated with Klonopin and Ritalin presents also using cigarettes and cannabis and drinking as well as methamphetamine use. 1. Encourage individual, group and milieu therapy. 2. Therapeutic observation 15-minute checks on the unit. 3. Recommend sober living treatment at the highest level of care to which the patient is willing to commit. 4. Restarted Methadone and Ritalin as prescribed. He is reporting a desire to plan to go to rehab or sober living treatment and consider restarting medications after he sees how he does sober. 5. Obtain collateral information. Involuntary Hold Information 2 96 Hour Hold: 96 Hour Involuntary Admission: Yes 96 Hour Hold Ending Date: 10/25/23 96 Hour Hold Ending Time: 17:35 Attestations NPU 2 Medical Necessity Statement*: Inpatient hospitalization is medically necessary and the clinically appropriate intervention at this time. We will monitor and make changes to medications as indicated. His likely length of stay is 2-4 days. Coding Level of Care Code Acute Code for [facility] Fwd Diagnoses Bipolar 2 disorder F31.81 Suicidal ideation R45.851 Opioid dependence with opioid-induced mood disorder F11.24 Substance use status: with opioid-induced mood disorder Attention deficit hyperactivity disorder (ADHD), predominantly inattentive type F90.0 Hyperactivity presence: present Attention deficit-hyperactivity disorder type: predominantly inattentive Anxiety and depression F41.9; F32.9 Methamphetamine use disorder, severe F15.20 Alcohol use disorder, severe, dependence F10.20
[2023-10-23 20:00] VITALS: BP 138/86; PULSE 70; RESP 16; TEMP 36.7; O2SAT 99
[2023-10-24] VITALS: BP 132/85; PULSE 82; RESP 16; TEMP 36.5; O2SAT 97
[2023-10-24 03:49] VITALS: BP 126/89; PULSE 107; RESP 18; TEMP 36.7; O2SAT 93
[2023-10-24] MEDS: nicotine 4 mg lozenge MUCOUS MEM ×3 (07:38→12:31)
[2023-10-24 08:00] VITALS: BP 125/88; PULSE 108; RESP 17; TEMP 37; O2SAT 100
[2023-10-24 08:49] VITALS: RESP 17
[2023-10-24] MEDS: methadone 10 mg Tablet 30 MG PO (08:49)
[2023-10-24] MEDS: methylphenidate 10 mg Tablet 20 MG PO (08:49)
[2023-10-24] MEDS: multivitamin therapeutic Tablet 1 TAB PO (08:50)
[2023-10-24] MEDS: folic acid 1 mg Tablet PO (08:50)
[2023-10-24] MEDS: thiamine 100 mg Tablet PO (08:50)
--- NOTE | 2023-10-24 09:02 | PC.NURSE ---
Patient ate breakfast this morning and is now sitting on his bed in his room. Patient states he is anxious, but only because he has been here and hasn't been able to see his family or have visits because of the covid on the unit. Denies avh and si/hi.
[2023-10-24] MEDS: hyDROXYzine 25 mg Capsule 50 MG PO (09:52)
[2023-10-24 12:00] VITALS: BP 126/82; PULSE 116; RESP 18; TEMP 37.3; O2SAT 98
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
[2023-10-24 12:37] VITALS: BP 126/82; PULSE 116; RESP 18; TEMP 37.3; O2SAT 98
== END 2023-10-24 13:48 | disposition home or self-care (01) | DRG 885 ==
LOC: ER 17:39 → NP 17:58
PROVIDERS: Admitting Provider Psychiatry & Neurology Psychiatry; Emergency Provider Emergency Medicine; PCP Family Medicine Adult Medicine; Visit Provider Psychiatry & Neurology Psychiatry
DX: F31.81 Bipolar II disorder (principal); F15.20 Other stimulant dependence, uncomplicated; F11.20 Opioid dependence, uncomplicated; R45.851 Suicidal ideations; F10.229 Alcohol dependence with intoxication, unspecified; Y90.9 Presence of alcohol in blood, level not specified; K21.9 Gastro-esophageal reflux disease without esophagitis; K58.9 Irritable bowel syndrome, unspecified; G25.81 Restless legs syndrome; G62.9 Polyneuropathy, unspecified; F41.8 Other specified anxiety disorders; F98.8 Other specified behavioral and emotional disorders with onset usually occurring in childhood and adolescence; F17.290 Nicotine dependence, other tobacco product, uncomplicated; Z11.52 Encounter for screening for COVID-19
CPT/HCPCS: 36415; 80053; 80306; 80307; 85025; 87486; 87581; 87633; 97150; 97165; 99285

== ENCOUNTER 2024-01-18 06:09 | Emergency (ER) | payer BC, MEDICAID, SELFPAY ==
[2024-01-18 06:13] VITALS: BP 113/69; PULSE 69; RESP 18; TEMP 36.7; O2SAT 99; BMI 24.3
--- NOTE | 2024-01-18 06:14 | XRR_ITS ---
PROCEDURE INFORMATION: Exam: XR Right Ankle Exam date and time: 01/18/2024 6:23 AM Age: 28 years old Clinical indication: Pain; Ankle; Right TECHNIQUE: Imaging protocol: Radiologic exam of the right ankle. Views: 3 or more views. COMPARISON: No relevant prior studies available. FINDINGS: Bones/joints: Normal. No fracture or dislocation. No acute osseous, joint, or soft tissue abnormality. Soft tissues: Normal. XR/XR ankle RT min 3V* [id number] IMPRESSION: No acute findings.
--- NOTE | 2024-01-18 06:29 | W.ED.EXTPRO ---
HPI - Extremity Problem General: Chief complaint: Extremity Injury, Lower Stated complaint: ankle pain Time Seen by Provider: 01/18/24 06:14 History of Present Illness: 28-year-old male presents emergency room via EMS. EMS reports he was found outside sleeping. he is homeless and being brought to his mother home. While there he evidently began behaving erratically and destroying his room. He reports that he twisted his ankle last night about 6 to 8 hours ago. He does admit to having been drinking heavily overnight. His behaviors are erratic he is very fidgety more consistent with methamphetamine use patient also admits to having used methamphetamines within the last 1 to 2 days. His only complaint is that of right ankle pain. Associated symptoms: Deny chest pain, fever(s) or rash Related Data Home Medications Medication Instructions Recorded Confirmed methadone 10 mg tablet 30 mg PO DAILY 10/20/23 10/20/23 Previous Rx's Medication Instructions Recorded methylphenidate HCl 10 mg tablet 10 mg PO TID concentration 30 days 12/19/23 #90 tabs Allergies Allergy/AdvReac Type Severity Reaction Status Date / Time Penicillins Allergy Intermediate Rash Verified 01/18/24 06:17 Review of Systems Const: Denies: fever(s) or chills Card: Denies: chest pain Resp: Denies: dyspnea GI: Denies: abdominal pain : Denies: dysuria, urinary frequency or urinary urgency Musc: Reports: joint pain (Right ankle); Denies: neck pain or back pain Skin/Breast: Denies: rash PFSH ED PFSH: Medical History Constipation Somnolence, daytime Psoriasis-like skin disease GERD (gastroesophageal reflux disease) Opioid dependence Bipolar 2 disorder Suicidal ideation Irritable bowel syndrome (IBS) Problems with constipation in November and December 2021 and episodes of diarrhea and March and April 2022. Restless leg syndrome Chronic nausea Allergic rhinitis due to allergen Peripheral neuropathy History of juvenile rheumatoid arthritis ADD (attention deficit disorder) Diagnosed at age of 8 yr old Ulcerative colitis Anxiety and depression Family History Other CAD (coronary artery disease) Cancer Hypertension Stroke Denies family history of Rheumatoid arthritis Diabetes Lupus Hyperlipidemia Chronic kidney disease (CKD) Social History (Reviewed 01/18/24 @ 06:35 by MICHEAL Thompson Smoking and tobacco/nicotine status: current every day tobacco/nicotine user e-cigarettes E-Cigarette Details: vaporizer device and with nicotine E-cig/vape details: Refill(50 mg)/1 - 1.5 weeks. Quit status (tobacco/nicotine): has tried quititng Number of times tried to quit tobacco: 10 Second hand smoke exposure: No Alcohol intake: current Alcohol intake frequency: holidays/special occasions only Alcohol type: beer Substance/Drug Use: former Date of last use: xanax, hydrocodone, oxycodone, heroin, klonopin, mushrooms, lsd, MDMA & thc Caregiver/support person: No Lives independently: Yes Household members: spouse Marital status: Number of children: 1 service: No Do you think of yourself as: Straight/Heterosexual Current gender identity: Male Physical Exam Const: GENERAL APPEARANCE: cooperative ORIENTATION/CONSCIOUSNESS: Yes awake, Yes oriented to person, Yes oriented to place and Yes oriented to time HENMT: COMMON NORMALS: normocephalic, atraumatic and hearing grossly normal bilaterally HEAD & SCALP: normocephalic and atraumatic Resp: COMMON NORMALS: normal respiratory effort, No retractions, No use of accessory muscles and clear to auscultation bilaterally AUSCULTATION: clear to auscultation bilaterally Cardio: COMMON NORMALS: regular rate, regular rhythm and No murmurs present (Cardio) RATE: regular rate RHYTHM: regular rhythm GI: COMMON NORMALS: Soft to palpation and No hepatosplenomegaly present AUSCULTATION: Yes normoactive bowel sounds PALPATION: Yes Soft to palpation, No Tenderness to palpation present (GI), No Guarding due to palpation present (GI) and Yes No hepatosplenomegaly present Extremity: OTHER: Right ankle pain with attempted range of motion mild swelling no ecchymosis no obvious deformity. Patient expresses pain with palpation of the ankle and of the foot Neuro: SENSORIUM/ORIENTATION: Yes oriented to person, Yes oriented to place and Yes oriented to time Skin: COMMON NORMALS: no rashes or lesions noted GENERAL SKIN EXAM: no rashes or lesions noted Course Vital Signs: Vital signs: Vital Signs Temperature 98.0 F 01/18/24 06:13 Pulse Rate 65 01/18/24 07:35 Respiratory Rate 18 01/18/24 06:13 Blood Pressure 111/69 01/18/24 07:35 Pulse Oximetry 100 01/18/24 07:35 Oxygen Delivery Me thod Room Air 01/18/24 06:13 MDM - Extremity (Nontraumatic) Medical Decision Making Patient's behaviors extremely erratic. It is difficult to assess his pain he seems to have pain everywhere in the ankle and the foot on examination no swelling or deformity in either patient placed in a posterior splint and crutches. Advised ice elevate weightbearing as tolerated and refer to Ortho Medical Records I reviewed the patient's medical records. Lab Data I reviewed the patient's lab results. Radiology Impressions Ankle X-Ray 01/18/24 06:14 IMPRESSION: No acute findings. Foot X-Ray 01/18/24 06:44 IMPRESSION: No acute findings. All radiology interpretation(s) finalized by discharge Discharge Plan Discharge Patient Disposition: Home Clinical Impression: Ankle sprain Condition: Stable Prescriptions: No Action methylphenidate HCl 10 mg tablet 10 mg PO TID 30 Days Qty: 90 0RF Rx Instructions: two in am and one in early pm methadone 10 mg Tablet 30 mg PO DAILY Discharge Orders: Discharge ED (Routine); Ordered 01/18/24 Ordered By: Ed Decker Referrals: Reji Ramirez MD [Primary Care Provider] - Discharge Diet: Usual diet Discharge Activity: Increase activity as tolerated Patient Instructions: Ankle Sprain (ED), Opioid Safety, Pain Management Activity Restrictions/Additional Instructions: Thank you for choosing [facility] for your healthcare needs today. It is very important that you follow up as instructed or that you return to the Emergency Department should you have concerns or if your condition changes or worsens in any way. You are seen in the emergency room with a complaint of ankle pain. You are placed in a splint and on crutches recommend nonweightbearing you can use [id number] Aleve or Motrin/ibuprofen as needed for pain he can ice and elevate as well. Coding Level of Care Code ED Teacher Home Therapy for [facility]
[2024-01-18 06:39] VITALS: BP 128/72; PULSE 73; O2SAT 92
--- NOTE | 2024-01-18 06:44 | XRR_ITS ---
PROCEDURE INFORMATION: Exam: XR Right Foot Exam date and time: 01/18/2024 6:46 AM Age: 28 years old Clinical indication: Pain; Foot; Right TECHNIQUE: Imaging protocol: Radiologic exam of the right foot. Views: 3 or more views. COMPARISON: CR (LOW EXM, ) 01/18/2024 6:23 AM FINDINGS: Bones/joints: Normal. No acute osseous, joint, or soft tissue abnormality. Soft tissues: Normal. XR/XR foot RT min 3V* [id number] IMPRESSION: No acute findings.
--- NOTE | 2024-01-18 07:04 | PC.NURSE ---
spoke with patients mother, patient asked he she would come pick him up. mother states 'i just dont think thats a good idea, he cant come back here'. mother states that she will contact pts grandmother to see if she will come pick him up.
[2024-01-18] MEDS: ibuprofen 800 mg tablet PO (07:11)
--- NOTE | 2024-01-18 07:30 | PC.NURSE ---
attempted to wrap patients right leg in splint as ordered by provider. patient refused. informed MARQUIS Muniz, instructed to apply nafisa wrap. pt allowed nafisa wrap to be applied. extremity pink, warm, and dry after application of nafisa wrap.
[2024-01-18 07:35] VITALS: BP 111/69; PULSE 65; O2SAT 100
--- NOTE | 2024-01-19 07:42 | DCPLANNER ---
messaged podiatry for er f/u
== END 2024-01-18 07:37 | disposition home or self-care (01) ==
PROVIDERS: Emergency Provider Family Medicine; PCP Family Medicine Adult Medicine
DX: S93.401A Sprain of unspecified ligament of right ankle, initial encounter (principal); X58.XXXA Exposure to other specified factors, initial encounter; F17.290 Nicotine dependence, other tobacco product, uncomplicated
CPT/HCPCS: 73610; 73630; 99283

== ENCOUNTER 2024-01-24 00:35 | Inpatient (IN) | payer BC, MEDICAID, SELFPAY ==
[2024-01-24] VITALS (7 sets, daily range): BP systolic 107–152; BP diastolic 65–102; PULSE 69–109; RESP 16–18; TEMP 36.5–36.8; O2SAT 93–100; BMI 22.2
[2024-01-24 00:57] LABS: Bilirubin Urine 1+ (Negative); Blood Urine Non-haemolysed trace (Negative); Glucose Urine UA Negative (Normal); Ketones Urine Trace (Negative); Leukocyte Esterase Urine Negative (Negative); Nitrate Urine Negative (Negative); Protein Urine Trace (Negative); Specific Gravity, Urine 1.026 (1.005-1.030); Urine Appearance Clear (CLEAR); Urine Color Dark Yellow (Yellow); pH Urine 5.5 (5-7)
--- NOTE | 2024-01-24 00:58 | ECG_ITS ---
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 Measurements Intervals [place] Rate: 83 P: 59 MO: 120 QRS: 69 QRSD: 86 T: 70 QT: 332 QTc: 390 Interpretive Statements SINUS RHYTHM WITH MARKED SINUS ARRHYTHMIA No previous ECG available for comparison Electronically Signed On 01-25-2024 19:02:39 DECK CADET by Joseph Carpio M.D. [email or web address]
[2024-01-24 01:02] LABS: Bacteria Urine None Seen /hpf; Hyaline Casts Urine 8.67 /lpf; Squamous Epithelial Cell Urine 0-5 /hpf (0-5); WBC Urine 0-5 /hpf (0-5)
[2024-01-24 01:04] LABS: Basophils % 0.5 %; Eosinophils # 0.1 10^3/uL (0.0-0.8); Eosinophils % 1.4 %; Hematocrit 49.5 % (37-53); Lymphocytes # 1.9 10^3/uL (0.8-4.8); Lymphocytes % 29.6 %; Mean Corpuscular HGB Conc 34.1 g/dL (30-55); Mean Corpuscular Hemoglobin 32.5 pg (27-33); Mean Corpuscular Volume 95.2 fl (82-101); Mean Platelet Volume 11.6 fL (7.4-10.4); Monocytes # 0.6 10^3/uL (0.2-0.9); Monocytes % 9.7 %; Neutrophils # 3.74 10^3/uL (1.8-7.7); Neutrophils % 58.5 %; Nucleated Red Blood Cells % 0 %; Platelet Count 161 10^3/cmm (157-399); Red Cell Distribution Width 13.2 % (12.1-15.1); White Blood Count 6.39 10^3/uL (3.29-11.43)
[2024-01-24 01:05] LABS: Amphetamines Screen Urine Positive (Negative); Barbiturates Screen Urine Negative (Negative); Benzodiazepines Screen Urine Negative (Negative); Cocaine Screen Urine Negative (Negative); Opiate Screen Urine Negative (Negative); PCP Screen Urine Negative (Negative); THC Screen Urine Positive (Negative)
[2024-01-24 01:30] LABS: Add Urine Culture? No; Mucus Urine 1+ /hpf
[2024-01-24 01:30] LABS: Alanine Aminotransferase 18 U/L (0-41); Albumin Level 4.7 g/dL (3.5-5.2); Alcohol Level 183 mg/dL (0-10); Alkaline Phosphatase 113 U/L (40-130); Aspartate Amino Transferase 24 U/L (0-40); Blood Urea Nitrogen 8 mg/dL (6-20); Calcium 9.5 mg/dL (8.5-10.5); Carbon Dioxide 27 mmol/L (22-29); Chloride 102 mmol/L (98-107); Glomerular Filtration Rate 100.5 mL/min (90-130); Glucose 81 mg/dL (65-115); Osmolality Calculated 287 mOsm/kg (285-295); Sodium 140 mmol/L (136-145); Thyroid Stimulating Hormone 1.02 uIU/mL (0.27-4.20); Total Bilirubin 0.4 mg/dL (0.15-1.2); Total Protein 7.7 g/dL (6.6-8.7)
[2024-01-24 01:32] LABS: Slide Review Slide Review Perform
[2024-01-24 01:33] LABS: Acetaminophen < 5.0 ug/mL (10-30); Anion Gap 14.5 (5-19); Potassium 3.5 mmol/L (3.5-5.1); Salicylate < 0.3 mg/dL (3-10)
--- NOTE | 2024-01-24 01:35 | W.ED.PSYCHS ---
HPI - Psych General: Chief Complaint: Psychiatric Symptoms Stated Complaint: MHE Time Seen by Provider: 01/24/24 00:51 History of Present Illness: 28-year-old man with a history of ADHD, amphetamine abuse and alcohol abuse who presents to the emergency room by ambulance in the company of police who report that they were called out to the house with concerns for suicidal comments, outbursts and threats to family. Affidavits were written by family. They state that he has been erratic [id number] for about 3 months. He lost his job. He is homeless. He is now living with the family. He stopped taking his psych meds and is started using meth and alcohol to self medicate. They report that he is sent text that indicate that he is suicidal. He is also sending message telling family to . He had said according to them that he will make sure to mention them in the suicide letter. He denies all of this Related Data Home Medications Medication Instructions Recorded Confirmed methadone 10 mg tablet 30 mg PO DAILY 10/20/23 10/20/23 Previous Rx's Medication Instructions Recorded methylphenidate HCl 10 mg tablet 10 mg PO TID concentration 30 days 12/19/23 #90 tabs Allergies Allergy/AdvReac Type Severity Reaction Status Date / Time Penicillins Allergy Intermediate Rash Verified 01/24/24 00:40 Review of Systems Narrative: Constitutional symptoms: Negative except as documented in HPI. Skin symptoms: Negative except as documented in HPI. Eye symptoms: Negative except as documented in HPI. ENMT symptoms: Negative except as documented in HPI. Respiratory symptoms: Negative except as documented in HPI. Cardiovascular symptoms: Negative except as documented in HPI. Gastrointestinal symptoms: Negative except as documented in HPI. Genitourinary symptoms: Negative except as documented in HPI. Musculoskeletal symptoms: Negative except as documented in HPI. Neurologic symptoms: Negative except as documented in HPI. Psychiatric symptoms: Negative except as documented in HPI. Endocrine symptoms: Negative except as documented in HPI. PFSH ED PFSH: Medical History Constipation Somnolence, daytime Psoriasis-like skin disease GERD (gastroesophageal reflux disease) Opioid dependence Bipolar 2 disorder Suicidal ideation Irritable bowel syndrome (IBS) Problems with constipation in November and December 2021 and episodes of diarrhea and March and April 2022. Restless leg syndrome Chronic nausea Allergic rhinitis due to allergen Peripheral neuropathy History of juvenile rheumatoid arthritis ADD (attention deficit disorder) Diagnosed at age of 8 yr old Ulcerative colitis Anxiety and depression Family History Other CAD (coronary artery disease) Cancer Hypertension Stroke Denies family history of Rheumatoid arthritis Diabetes Lupus Hyperlipidemia Chronic kidney disease (CKD) Social History Smoking and tobacco/nicotine status: current every day tobacco/nicotine user e-cigarettes E-Cigarette Details: vaporizer device and with nicotine E-cig/vape details: Refill(50 mg)/1 - 1.5 weeks. Quit status (tobacco/nicotine): has tried quititng Number of times tried to quit tobacco: 10 Second hand smoke exposure: No Alcohol intake: current Alcohol intake frequency: holidays/special occasions only Alcohol type: beer Substance/Drug Use: former Date of last use: xanax, hydrocodone, oxycodone, heroin, klonopin, mushrooms, lsd, MDMA & thc Caregiver/support person: No Lives independently: Yes Household members: spouse Marital status: Number of children: 1 service: No Do you think of yourself as: Straight/Heterosexual Current gender identity: Male Physical Exam Narrative: EXAM NARRATIVE: General: Alert, no acute distress. Skin: Warm, dry. Head: Normocephalic, atraumatic. Neck: Supple, trachea midline. Eye: Extraocular movements are intact. Ears, nose, mouth and throat: mucosa moist. Cardiovascular: Regular, Normal peripheral perfusion. Respiratory: Lungs are clear to auscultation, respirations are non-labored, breath sounds are equal, Symmetrical chest wall expansion. Gastrointestinal: Soft, Nontender, Non distended Musculoskeletal: Normal ROM, no deformity. Neurological: Alert and oriented, No focal neurological deficit observed. Psychiatric: Cooperative, appropriate mood & affect. Does appear slightly intoxicated. He denies any suicidal or homicidal ideations at this time Course Vital Signs: Vital signs: Vital Signs Temperature 98.1 F 01/24/24 00:36 Pulse Rate 109 H 01/24/24 00:36 Respiratory Rate 18 01/24/24 00:36 Blood Pressure 152/102 01/24/24 00:36 Pulse Oximetry 100 01/24/24 00:36 Oxygen Delivery Me thod Room Air 01/24/24 00:36 MDM - Psych Medical Decision Making Differential diagnosis: Patient with reported depression and suicidal ideation. concerns for infection, alcohol intoxication, cardiac issues or other medical problems prior to psychiatric admission. EKG: Time 12:58 AM. Rate 83. Normal sinus rhythm, No ST-T changes, no ectopy, normal VA & QRS intervals, This was reviewed and interpreted by myself the ER physician at 1:03 AM Workup: labwork, ekg ordered to evaluate the pathologies and to clear the patient medically prior to psychiatric admission Lab Review: Laboratory results were reviewed and interpreted by myself the emergency room physician. Lab review: - Medically cleared. - EKG shows no ischemic changes. -Tylenol and salicylate levels are negative. - Drug screen is positive for methamphetamine and marijuana. Blood alcohol level is 181. - No signs of infection, urinalysis clear and white count is not elevated - No anemia. - BUN and creatinine are within normal limits. Consultation: I spoke with Dr. Szymanski who is on-call for psychiatry who agrees to admission. Assessment and plan: Alcohol intoxication Methamphetamine abuse Suicidal ideation Psychosis -Admission to neuropsychiatric unit for continued evaluation and treatment. - All lab work was reviewed and interpreted personally by myself, the ER physician - Evaluation and treatment of this problem were appropriate in the emergency setting Lab Data 01/24/24 00:55 01/24/24 00:55 Laboratory Results WBC 6.39 10^3/uL (3.29-11.43) 01/24/24 00:55 RBC 5.20 10^6/uL (3.85-5.65) 01/24/24 00:55 Hgb 16.90 g/dL (11.27-16.99) 01/24/24 00:55 Hct 49.5 % (37-53) 01/24/24 00:55 MCV 95.2 fl (82-101) 01/24/24 00:55 MCH 32.5 pg (27-33) 01/24/24 00:55 MCHC 34.1 g/dL (30-55) 01/24/24 00:55 RDW 13.2 % (12.1-15.1) 01/24/24 00:55 Plt Count 161 10^3/cmm (157-399) 01/24/24 00:55 MPV 11.6 fL (7.4-10.4) H 01/24/24 00:55 Neut % (Auto) 58.5 % 01/24/24 00:55 Lymph % (Auto) 29.6 % 01/24/24 00:55 [place] % (Auto) 9.7 % 01/24/24 00:55 Eos % (Auto) 1.4 % 01/24/24 00:55 Baso % (Auto) 0.5 % 01/24/24 00:55 Neut # (Auto) 3.74 10^3/uL (1.8-7.7) 01/24/24 00:55 Lymph # (Auto) 1.9 10^3/uL (0.8-4.8) 01/24/24 00:55 [place] # (Auto) 0.6 10^3/uL (0.2-0.9) 01/24/24 00:55 Eos # (Auto) 0.1 10^3/uL (0.0-0.8) 01/24/24 00:55 Baso # (Auto) 0.0 10^3/uL (0.0-0.1) 01/24/24 00:55 Nucleated RBC % (auto) 0 % 01/24/24 00:55 Nucleated RBCs # 0.0 /100WBC 01/24/24 00:55 Sodium 140 mmol/L (136-145) 01/24/24 00:55 Potassium 3.5 mmol/L (3.5-5.1) 01/24/24 00:55 Chloride 102 mmol/L (98-107) 01/24/24 00:55 Carbon Dioxide 27 mmol/L (22-29) 01/24/24 00:55 Anion Gap 14.5 (5-19) 01/24/24 00:55 BUN 8 mg/dL (6-20) 01/24/24 00:55 Creatinine 0.9 mg/dL (0.7-1.2) 01/24/24 00:55 GFR Calculation 100.5 mL/min (90-130) 01/24/24 00:55 Glucose 81 mg/dL (65-115) 01/24/24 00:55 Calculated Osmolality 287 mOsm/kg (285-295) 01/24/24 00:55 Calcium 9.5 mg/dL (8.5-10.5) 01/24/24 00:55 Total Bilirubin 0.4 mg/dL (0.15-1.2) 01/24/24 00:55 AST 24 U/L (0-40) 01/24/24 00:55 ALT 18 U/L (0-41) 01/24/24 00:55 Alkaline Phosphatase 113 U/L (40-130) 01/24/24 00:55 Total Protein 7.7 g/dL (6.6-8.7) 01/24/24 00:55 Albumin 4.7 g/dL (3.5-5.2) 01/24/24 00:55 Globulin 3.0 g/dL (1.3-4.6) 01/24/24 00:55 TSH 1.02 uIU/mL (0.27-4.20) 01/24/24 00:55 Urine Color Dark yellow (Yellow) A 01/24/24 00:47 Urine Appearance Clear (CLEAR) 01/24/24 00:47 Urine pH 5.5 (5-7) 01/24/24 00:47 Ur Specific [place] 1.026 (1.005-1.030) 01/24/24 00:47 Urine Protein Trace (Negative) A 01/24/24 00:47 Urine Glucose (UA) Negative (Normal) 01/24/24 00:47 Urine Ketones Trace (Negative) 01/24/24 00:47 Urine Blood Non-haemolysed trace (Negative) 01/24/24 00:47 Urine Nitrate Negative (Negative) 01/24/24 00:47 Urine Bilirubin 1+ (Negative) H 01/24/24 00:47 Urine Urobilinogen 1.0 mg/dL (Negative) 01/24/24 00:47 Ur Leukocyte Esterase Negative (Negative) 01/24/24 00:47 Urine RBC 11-20 /hpf (0-2) H 01/24/24 00:47 Urine WBC 0-5 /hpf (0-5) 01/24/24 00:47 Ur Squamous Epith Cells 0-5 /hpf (0-5) 01/24/24 00:47 Calcium Oxalate Crystal 5-10 /hpf H 01/24/24 00:47 Amorphous Sediment Not Reportable 01/24/24 00:47 Urine Bacteria None seen /hpf (NONE) 01/24/24 00:47 Hyaline Casts 8.67 /lpf 01/24/24 00:47 Urine Mucus 1+ /hpf 01/24/24 00:47 Salicylates < 0.3 mg/dL (3-10) L 01/24/24 00:55 Urine Opiates Screen Negative ng/mL (Negative) 01/24/24 00:47 Acetaminophen < 5.0 ug/mL (10-30) L 01/24/24 00:55 Ur Barbiturates Screen Negative ng/mL (Negative) 01/24/24 00:47 Ur Phencyclidine Scrn Negative ng/mL (Negative) 01/24/24 00:47 Ur Amphetamines Screen Positive ng/mL (Negative) H 01/24/24 00:47 U Benzodiazepines Scrn Negative ng/mL (Negative) 01/24/24 00:47 Urine Cocaine Screen Negative ng/mL (Negative) 01/24/24 00:47 U Marijuana (THC) Screen Positive ng/mL (Negative) H 01/24/24 00:47 Ethyl Alcohol 183 mg/dL (0-10) H 01/24/24 00:55 No radiology studies performed this visit Discharge Plan Discharge Patient Disposition: Admitted As Inpatient Clinical Impression: Methamphetamine use disorder, severe, Acute psychosis, Alcohol intoxication, Suicidal ideation Condition: Stable Coding Level of Care Code ED Claim Review Medical 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
--- NOTE | 2024-01-24 01:53 | PC.NURSE ---
96 HH Pt served with copy of 96 HH by this RN and security. Pt A&Ox3, pt speech is rapid and has a flight of ideas. Pt states he has been placed on a 96 HH several time in the past and has no further questions. Update given to pt and mother in waiting room. Mother stated that pt behavior and drug use has become uncontrollable since September.
[2024-01-24] MEDS: OLANZapine 5 mg ODT PO (04:06)
[2024-01-24] MEDS: hyDROXYzine 25 mg Capsule 50 MG PO (04:06)
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
[2024-01-24] MEDS: multivitamin therapeutic Tablet 1 TAB PO (09:59)
[2024-01-24] MEDS: thiamine 100 mg Tablet PO (09:59)
[2024-01-24] MEDS: folic acid 1 mg Tablet PO (09:59)
[2024-01-24] MEDS: nicotine 4 mg lozenge MUCOUS MEM (10:30)
--- NOTE | 2024-01-24 11:14 | PC.NURSE ---
Called [facility] in [place], [place] and spoke to nurse, Jacy, who stated that she believed the patient was seen in [place] now. This RN called [facility] in [place] and had to leave a message. Awaiting response to obtain information on strength of methadone he is on.
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
[2024-01-24] MEDS: methadone 10 mg Tablet 30 MG PO (15:58)
[2024-01-25] VITALS (7 sets, daily range): BP systolic 104–146; BP diastolic 60–94; PULSE 60–106; RESP 16–18; TEMP 36.6–37.1; O2SAT 91–98
[2024-01-25] MEDS: nicotine 4 mg lozenge MUCOUS MEM ×4 (06:23→13:21)
[2024-01-25] MEDS: methadone 10 mg Tablet 30 MG PO ×2 (08:41→18:19)
[2024-01-25] MEDS: folic acid 1 mg Tablet PO (08:42)
[2024-01-25] MEDS: multivitamin therapeutic Tablet 1 TAB PO (08:42)
[2024-01-25] MEDS: thiamine 100 mg Tablet PO (08:42)
--- NOTE | 2024-01-25 15:46 | P.NPUPN_ITS ---
Subjective NPU 2 Subjective: 28-year-old male with a history of opiat e dependence, binge alcohol consumption and methamphetamine abuse admitted with suicidal ideation currently on an involuntary hold. The patient had expressed desire to leave here today. The patient's family members had reported that they were unhappy and stated that he needed to be in a substance abuse rehabilitation facility. The patient had refused this at this time. He had reported that he did not need further assistance on an inpatient basis but would continue on an outpatient basis. He had described having a series of losses including loss of relationships, loss of of marriage, and inability to maintain work over the past several years and continued to blame others for his challenges. He had reported no side effects from his medication regimen. He had reported struggles with staying on task. Mental Status Exam 2 MSE Comments: This is a slender white male in hospital scrubs with limited grooming and eye contact. No abnormal involuntary motor movements. He was cooperative with exam in mild distress. Speech was mostly normal rate and volume. Mood described as allright. His affect was irritable and mood incongruent. Thought process was linear and organized. Thought content: Patient denied suicidal or homicidal ideation, there were no delusions reported or noted, the auditory hallucinations. Attention and concentration appeared intact and memory was somewhat unreliable and selective at this time. He is alert and oriented x 3. Insight is impaired. His judgement is limited. His impulse control is impaired. Vitals/I&O/Wt Last Vital Signs Temp 98.4 F 01/25/24 12:00 Pulse 83 01/25/24 12:00 Resp 17 01/25/24 12:00 BP 146/94 01/25/24 12:00 Pulse Ox 98 01/25/24 12:00 O2 Del Method Room Air 01/25/24 12:00 Weight last 48 hrs Weight 70.307 kg Data NPU 01/24/24 00:55 01/24/24 00:55 A&P Assessment and plan (1) Bipolar 2 disorder: (2) Suicidal ideation: (3) Opioid dependence: Qualifiers: Substance use status: with opioid-induced mood disorder Qualified Code(s): F11.24 - Opioid dependence with opioid-induced mood disorder (4) ADD (attention deficit disorder): Qualifiers: Hyperactivity presence: present Attention deficit-hyperactivity disorder type: predominantly inattentive Qualified Code(s): 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 1. Encourage individual, group and milieu therapy. 2. Therapeutic observation 15-minute checks on the unit. 3. Recommend sober living treatment at the highest level of care to which the patient is willing to commit. 4. Restart Abilify 10mg daily. 5. Discussed digital therapeutics for substance abuse treatment with patient on outpatient basis. Patient refusing inpatient substance abuse treatment. Involuntary Hold Information 2 96 Hour Hold: 96 Hour Involuntary Admission: Yes Other Hold: Hold End Date: 02/01/24 Attestations NPU 2 Medical Necessity Statement*: Inpatient hospitalization is medically necessary and the clinically appropriate intervention at this time. We will monitor and make changes to medications as indicated. His likely length of stay is 5-7 days. Coding Level of Care Code Acute Code for [facility] Fwd Diagnoses Bipolar 2 disorder F31.81 Suicidal ideation R45.851 Opioid dependence with opioid-induced mood disorder F11.24 Substance use status: with opioid-induced mood disorder Attention deficit hyperactivity disorder (ADHD), predominantly inattentive type F90.0 Hyperactivity presence: present Attention deficit-hyperactivity disorder type: predominantly inattentive Anxiety and depression F41.9; F32.9 Methamphetamine use disorder, severe F15.20 Alcohol use disorder, severe, dependence F10.20
[2024-01-25] MEDS: ARIPiprazole 10 mg Tablet PO (16:15)
[2024-01-26] VITALS (8 sets, daily range): BP systolic 113–133; BP diastolic 74–93; PULSE 59–78; RESP 16–18; TEMP 36.6–36.9; O2SAT 95–100
[2024-01-26] MEDS: nicotine 4 mg lozenge MUCOUS MEM ×3 (09:19→17:56)
[2024-01-26] MEDS: thiamine 100 mg Tablet PO (09:19)
[2024-01-26] MEDS: methadone 10 mg Tablet 30 MG PO ×2 (09:19→17:55)
[2024-01-26] MEDS: ARIPiprazole 10 mg Tablet PO (09:19)
[2024-01-26] MEDS: folic acid 1 mg Tablet PO (09:19)
[2024-01-26] MEDS: multivitamin therapeutic Tablet 1 TAB PO (09:19)
--- NOTE | 2024-01-26 11:40 | P.NPUPN_ITS ---
Subjective NPU 2 Subjective: 28-year-old male with a history of opiat e dependence, binge alcohol consumption and methamphetamine abuse admitted with suicidal ideation currently on an involuntary hold. Patient reported that he had been feeling a little bit better today. He had reported no side effects from his medication regimen. He had endorsed some continued use of drugs for several years but continued to report desire to try outpatient treatment in place of inpatient substance abuse treatment. He had reported no feelings of hopelessness and denied any suicidal thoughts. He had appeared somewhat isolative on the milieu and complained of some boredom. He had reported that Abilify had been helpful for his mood instability. He had reported no prior known side effects from the Abilify in the past. Mental Status Exam 2 MSE Comments: This is a slender white male in hospital scrubs with limited grooming and eye contact. No abnormal involuntary motor movements. He was cooperative with exam in mild distress. Speech was normal in rate and volume. Mood described as okay. His affect was less irritable today. Thought process was linear and organized. Thought content: Patient denied suicidal or homicidal ideation, there were no delusions reported or noted, the auditory hallucinations. Attention and concentration appeared intact and memory was somewhat unreliable and selective at this time. He is alert and oriented x 3. Insight is impaired. His judgement is guarded. His impulse control is improving. Vitals/I&O/Wt Last Vital Signs Temp 98.1 F 01/26/24 11:37 Pulse 67 01/26/24 11:37 Resp 16 01/26/24 11:37 BP 133/93 01/26/24 11:37 Pulse Ox 100 01/26/24 11:37 O2 Del Method Room Air 01/26/24 11:37 Data NPU 01/24/24 00:55 01/24/24 00:55 A&P Assessment and plan (1) Bipolar 2 disorder: (2) Suicidal ideation: (3) Opioid dependence: Qualifiers: Substance use status: with opioid-induced mood disorder Qualified Code(s): F11.24 - Opioid dependence with opioid-induced mood disorder (4) ADD (attention deficit disorder): Qualifiers: Hyperactivity presence: present Attention deficit-hyperactivity disorder type: predominantly inattentive Qualified Code(s): 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 1. Encourage individual, group and milieu therapy. 2. Therapeutic observation 15-minute checks on the unit. 3. Recommend sober living treatment at the highest level of care to which the patient is willing to commit. 4. Restart Abilify 10mg daily. 5. Discussed digital therapeutics for substance abuse treatment with patient on outpatient basis. Patient refusing inpatient substance abuse treatment. Involuntary Hold Information 2 96 Hour Hold: 96 Hour Involuntary Admission: Yes Other Hold: Hold End Date: 02/01/24 Attestations NPU 2 Medical Necessity Statement*: Inpatient hospitalization is medically necessary and the clinically appropriate intervention at this time. We will monitor and make changes to medications as indicated. His likely length of stay is 2-3 days. Coding Level of Care Code Acute Code for [facility] Diagnoses Bipolar 2 disorder F31.81 Suicidal ideation R45.851 Opioid dependence with opioid-induced mood disorder F11.24 Substance use status: with opioid-induced mood disorder Attention deficit hyperactivity disorder (ADHD), predominantly inattentive type F90.0 Hyperactivity presence: present Attention deficit-hyperactivity disorder type: predominantly inattentive Anxiety and depression F41.9; F32.9 Methamphetamine use disorder, severe F15.20 Alcohol use disorder, severe, dependence F10.20
[2024-01-27 06:00] VITALS: BP 121/85; PULSE 54; RESP 16; TEMP 36.7; O2SAT 99
[2024-01-27] MEDS: nicotine 4 mg lozenge MUCOUS MEM ×2 (06:20→07:58)
[2024-01-27] MEDS: methadone 10 mg Tablet 30 MG PO ×2 (07:58→10:42)
[2024-01-27] MEDS: multivitamin therapeutic Tablet 1 TAB PO (07:58)
[2024-01-27] MEDS: thiamine 100 mg Tablet PO (07:58)
[2024-01-27] MEDS: ARIPiprazole 10 mg Tablet PO (07:58)
[2024-01-27] MEDS: folic acid 1 mg Tablet PO (07:58)
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
[2024-01-27 09:44] VITALS: BP 121/85; PULSE 54; RESP 16; TEMP 36.7; O2SAT 99
== END 2024-01-27 10:43 | disposition home or self-care (01) | DRG 885 ==
LOC: ER 02:02 → NP 02:16
PROVIDERS: Admitting Provider Psychiatry & Neurology Psychiatry; Emergency Provider Emergency Medicine; Visit Provider Psychiatry & Neurology Psychiatry
DX: F31.81 Bipolar II disorder (principal); F15.20 Other stimulant dependence, uncomplicated; R45.851 Suicidal ideations; F10.229 Alcohol dependence with intoxication, unspecified; Y90.6 Blood alcohol level of 120-199 mg/100 ml; F12.90 Cannabis use, unspecified, uncomplicated; F11.24 Opioid dependence with opioid-induced mood disorder; F98.8 Other specified behavioral and emotional disorders with onset usually occurring in childhood and adolescence; F41.9 Anxiety disorder, unspecified; K21.9 Gastro-esophageal reflux disease without esophagitis; G25.81 Restless legs syndrome; G62.9 Polyneuropathy, unspecified; F17.290 Nicotine dependence, other tobacco product, uncomplicated; Z91.51 Personal history of suicidal behavior; Z88.0 Allergy status to penicillin; Z82.49 Family history of ischemic heart disease and other diseases of the circulatory system; Z82.3 Family history of stroke; Z80.9 Family history of malignant neoplasm, unspecified
CPT/HCPCS: 80053; 80306; 80307; 81001; 84443; 85025; 93005; 97150; 97165; 99285

== ENCOUNTER 2024-03-09 18:01 | Inpatient (IN) | payer BC, SELFPAY ==
[2024-03-09 18:02] VITALS: BP 143/86; PULSE 103; RESP 18; TEMP 37.3; O2SAT 95; BMI 24.3
--- NOTE | 2024-03-09 18:18 | ED.C_ITS ---
HPI - Psych 2 General: Chief Complaint: Psychiatric Symptoms Stated Complaint: 96 Time Seen by Provider: 03/09/24 18:02 Source: patient and police Limitations: no limitations History of Present Illness: 28-year-old male who is here with police under 96-hour hold per police patient has been using methamphetamine family placed on a 96-hour hold as he is been having erratic behaviors, hallucinations patient here denies SI or HI but does appear to be under the influince of meth Associated symptoms: Reports auditory hallucinations, delusions and depression Related Data Home Medications Medication Instructions Recorded Confirmed methylphenidate HCl 10 mg tablet 10 mg PO 1400 01/24/24 01/24/24 methylphenidate HCl 10 mg tablet 20 mg PO QAM concentration 01/24/24 01/24/24 Previous Rx's Medication Instructions Recorded aripiprazole 10 mg tablet (Abilify) 10 mg PO BEDTIME #30 tabs 01/26/24 Allergies Allergy/AdvReac Type Severity Reaction Status Date / Time Penicillins Allergy Intermediate Rash Verified 01/24/24 00:40 Review of Systems 2 Const: Denies: fever(s), chills, body aches or change in appetite ENMT: Denies: throat pain or dental pain Card: Denies: chest pain Resp: Denies: dyspnea GI: Denies: abdominal pain, nausea, vomiting or diarrhea Musc: Denies: neck pain or back pain Skin/Breast: Denies: rash Neuro: Denies: headache(s) Psych: Reports: depression, irritability and auditory hallucinations PFSH ED 2 PFSH: Medical History Constipation Somnolence, daytime Psoriasis-like skin disease GERD (gastroesophageal reflux disease) Opioid dependence Bipolar 2 disorder Suicidal ideation Irritable bowel syndrome (IBS) Problems with constipation in November and December 2021 and episodes of diarrhea and March and April 2022. Restless leg syndrome Chronic nausea Allergic rhinitis due to allergen Peripheral neuropathy History of juvenile rheumatoid arthritis ADD (attention deficit disorder) Diagnosed at age of 8 yr old Ulcerative colitis Anxiety and depression Family History Other CAD (coronary artery disease) Cancer Hypertension Stroke Denies family history of Rheumatoid arthritis Diabetes Lupus Hyperlipidemia Chronic kidney disease (CKD) Social History Smoking and tobacco/nicotine status: current every day tobacco/nicotine user e- cigarettes E-Cigarette Details: vaporizer device and with nicotine E-cig/vape details: Refill(50 mg)/1 - 1.5 weeks. Quit status (tobacco/nicotine): has tried quititng Number of times tried to quit tobacco: 10 Second hand smoke exposure: No Alcohol intake: current Alcohol intake frequency: holidays/special occasions only Alcohol type: beer Substance/Drug Use: former Date of last use: xanax, hydrocodone, oxycodone, heroin, klonopin, mushrooms, lsd, MDMA & thc Caregiver/support person: No Lives independently: Yes Household members: spouse Marital status: Number of children: 1 service: No Do you think of yourself as: Straight/Heterosexual Current gender identity: Male Physical Exam 2 Const: COMMON NORMALS: no acute distress, patient oriented x3 and healthy appearing HENMT: COMMON NORMALS: normocephalic and atraumatic HEAD & SCALP: n ormocephalic and atraumatic Eye: COMMON NORMALS: Equal, round and reactive pupils present and conjunctivae normal CONJUNCTIVA: Yes conjunctivae normal PUPIL: Yes Equal, round and reactive pupils present Neck/C-Spine: COMMON NORMALS: full ROM and supple Chest: COMMONS NORMALS: normal inspection of the chest Resp: COMMON NORMALS: normal respiratory effort Cardio: COMMON NORMALS: regular rate, regular rhythm and No murmurs present (Cardio) RATE: regular rate RHYTHM: regular rhythm Extremity: COMMON NORMALS: normal to inspection and full ROM Neuro: COMMON NORMALS: patient oriented x3, moves all extremities and no focal motor deficits Psych: COMMON NORMALS: mental status grossly normal and cooperative THOUGHT CONTENT: Yes delusions Skin: COMMON NORMALS: no rashes or lesions noted and no wounds GENERAL SKIN EXAM: no rashes or lesions noted Course 2 Vital Signs: Vital signs: Vital Signs Temperature 99.2 F 03/09/24 18:32 Pulse Rate 103 H 03/09/24 18:32 Respiratory Rate 18 03/09/24 18:32 Blood Pressure 143/86 03/09/24 18:32 Pulse Oximetry 95 03/09/24 18:32 MDM - Psych Medical Decision Making Patient presents here with acute psychosis likely drug-induced he is placed on a 96-hour hold and brought in by police he is medically cleared I spoke to psychiatrist and will admit at this time. Medical Records I reviewed the patient's medical records. Lab Data I reviewed the patient's lab results. 03/09/24 18:18 03/09/24 18:18 Laboratory Results WBC 9.65 10^3/uL (3.29-11.43) 03/09/24 18:18 RBC 5.38 10^6/uL (3.85-5.65) 03/09/24 18:18 Hgb 17.00 g/dL (11.27-16.99) H 03/09/24 18:18 Hct 50.7 % (37-53) 03/09/24 18:18 MCV 94.2 fl (82-101) 03/09/24 18:18 MCH 31.6 pg (27-33) 03/09/24 18:18 MCHC 33.5 g/dL (30-55) 03/09/24 18:18 RDW 12.3 % (12.1-15.1) 03/09/24 18:18 Plt Count 152 10^3/cmm (157-399) L 03/09/24 18:18 MPV 11.3 fL (7.4-10.4) H 03/09/24 18:18 Neut % (Auto) 90.6 % 03/09/24 18:18 Lymph % (Auto) 3.4 % 03/09/24 18:18 [place] % (Auto) 4.1 % 03/09/24 18:18 Eos % (Auto) 1.3 % 03/09/24 18:18 Baso % (Auto) 0.4 % 03/09/24 18:18 Neut # (Auto) 8.73 10^3/uL (1.8-7.7) H 03/09/24 18:18 Lymph # (Auto) 0.3 10^3/uL (0.8-4.8) L 03/09/24 18:18 [place] # (Auto) 0.4 10^3/uL (0.2-0.9) 03/09/24 18:18 Eos # (Auto) 0.1 10^3/uL (0.0-0.8) 03/09/24 18:18 Baso # (Auto) 0.0 10^3/uL (0.0-0.1) 03/09/24 18:18 Nucleated RBC % (auto) 0 % 03/09/24 18:18 Nucleated RBCs # 0.0 /100WBC 03/09/24 18:18 Sodium 134 mmol/L (136-145) L 03/09/24 18:18 Potassium 4.2 mmol/L (3.5-5.1) 03/09/24 18:18 Chloride 97 mmol/L (98-107) L 03/09/24 18:18 Carbon Dioxide 28 mmol/L (22-29) 03/09/24 18:18 Anion Gap 13.2 (5-19) 03/09/24 18:18 BUN 20 mg/dL (6-20) 03/09/24 18:18 Creatinine 0.8 mg/dL (0.7-1.2) 03/09/24 18:18 GFR Calculation 115.1 mL/min (90-130) 03/09/24 18:18 Glucose 95 mg/dL (65-115) 03/09/24 18:18 Calculated Osmolality 280 mOsm/kg (285-295) L 03/09/24 18:18 Calcium 9.7 mg/dL (8.5-10.5) 03/09/24 18:18 Total Bilirubin 0.8 mg/dL (0.15-1.2) 03/09/24 18:18 AST 22 U/L (0-40) 03/09/24 18:18 ALT 13 U/L (0-41) 03/09/24 18:18 Alkaline Phosphatase 115 U/L (40-130) 03/09/24 18:18 Total Protein 7.6 g/dL (6.6-8.7) 03/09/24 18:18 Albumin 4.5 g/dL (3.5-5.2) 03/09/24 18:18 Globulin 3.1 g/dL (1.3-4.6) 03/09/24 18:18 Salicylates < 0.3 mg/dL (3-10) L 03/09/24 18:18 Acetaminophen < 5.0 ug/mL (10-30) L 03/09/24 18:18 Ethyl Alcohol < 10 mg/dL (0-10) 03/09/24 18:18 No radiology studies performed this visit Discharge Plan Discharge Patient Disposition: Admitted As Inpatient Clinical Impression: Methamphetamine use disorder, severe, Acute psychosis Condition: Stable Coding Level of Care Code ED [employer] for Kilo Lange
[2024-03-09 18:24] LABS: Basophils % 0.4 %; Eosinophils # 0.1 10^3/uL (0.0-0.8); Eosinophils % 1.3 %; Hematocrit 50.7 % (37-53); Lymphocytes # 0.3 10^3/uL (0.8-4.8); Lymphocytes % 3.4 %; Mean Corpuscular HGB Conc 33.5 g/dL (30-55); Mean Corpuscular Hemoglobin 31.6 pg (27-33); Mean Corpuscular Volume 94.2 fl (82-101); Mean Platelet Volume 11.3 fL (7.4-10.4); Monocytes # 0.4 10^3/uL (0.2-0.9); Monocytes % 4.1 %; Neutrophils # 8.73 10^3/uL (1.8-7.7); Neutrophils % 90.6 %; Nucleated Red Blood Cells % 0 %; Platelet Count 152 10^3/cmm (157-399); Red Blood Count 5.38 10^6/uL (3.85-5.65); Red Cell Distribution Width 12.3 % (12.1-15.1); White Blood Count 9.65 10^3/uL (3.29-11.43)
[2024-03-09 18:32] VITALS: BP 143/86; PULSE 103; RESP 18; TEMP 37.3; O2SAT 95
--- NOTE | 2024-03-09 18:33 | PC.NURSE ---
96 hour hold rights read and reviewed with patient. José from security present during reading or rights. Patient verbalized understandings and copy of rights given to patient.
[2024-03-09 18:44] LABS: Alanine Aminotransferase 13 U/L (0-41); Albumin Level 4.5 g/dL (3.5-5.2); Alkaline Phosphatase 115 U/L (40-130); Anion Gap 13.2 (5-19); Aspartate Amino Transferase 22 U/L (0-40); Blood Urea Nitrogen 20 mg/dL (6-20); Calcium 9.7 mg/dL (8.5-10.5); Carbon Dioxide 28 mmol/L (22-29); Chloride 97 mmol/L (98-107); Creatinine Clr Calc Pharmacy 145.1419; Globulin 3.1 g/dL (1.3-4.6); Glomerular Filtration Rate 115.1 mL/min (90-130); Glucose 95 mg/dL (65-115); Osmolality Calculated 280 mOsm/kg (285-295); Potassium 4.2 mmol/L (3.5-5.1); Sodium 134 mmol/L (136-145); Total Bilirubin 0.8 mg/dL (0.15-1.2); Total Protein 7.6 g/dL (6.6-8.7)
[2024-03-09 18:45] LABS: Acetaminophen < 5.0 ug/mL (10-30); Alcohol Level < 10 mg/dL (0-10); Salicylate < 0.3 mg/dL (3-10)
[2024-03-09 18:52] LABS: Amphetamines Screen Urine Positive (Negative); Barbiturates Screen Urine Negative (Negative); Benzodiazepines Screen Urine Negative (Negative); Cocaine Screen Urine Negative (Negative); Opiate Screen Urine Negative (Negative); PCP Screen Urine Negative (Negative); THC Screen Urine Positive (Negative)
[2024-03-09 19:30] VITALS: PULSE 94; RESP 16; O2SAT 96
[2024-03-09 21:01] VITALS: BP 120/81; PULSE 99; RESP 18; TEMP 37.1; O2SAT 99
[2024-03-09 21:41] VITALS: BP 120/81; PULSE 99; RESP 18; TEMP 37.1; O2SAT 99
[2024-03-10 06:00] VITALS: BP 121/81; PULSE 100; RESP 16; O2SAT 96
[2024-03-10] MEDS: nicotine 4 mg lozenge MUCOUS MEM ×4 (10:23→19:27)
--- NOTE | 2024-03-10 10:26 | PC.NURSE ---
Talked with Angelica from [facility], her cell phone is [phone] Patient was last seen 03/06/24. Based on him missing his daily appointments, their doctor recommend patient be restarted on 40mg methadone daily. Dr. Szymanski notified. Dr. Szymanski gave verbal to start 60mg methadone daily to avoid withdrawal issues.
[2024-03-10 10:40] VITALS: RESP 16
[2024-03-10] MEDS: methadone 10 mg Tablet 60 MG PO (10:40)
[2024-03-10] MEDS: blistex lip oint 7 gm Tube 1 APPLIC TOPICAL (11:51)
[2024-03-10 14:00] VITALS: BP 113/66; PULSE 82; RESP 18; TEMP 36.8; O2SAT 97
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
[2024-03-10] MEDS: ARIPiprazole 10 mg Tablet PO (19:27)
[2024-03-10 21:11] VITALS: BP 132/84; PULSE 81; RESP 16; TEMP 36.7; O2SAT 98
[2024-03-11 06:00] VITALS: BP 117/74; PULSE 52; RESP 16; TEMP 36.7; O2SAT 97
--- NOTE | 2024-03-11 07:15 | P.NPUPN_ITS ---
Subjective NPU 2 Subjective: Patient presents today reporting that things are going all right. It was early and he was still lying in bed. He reports that he does not think that he really needs to be here but we discussed concerns raised by his mother at least and his issues with adherence to his methadone appointments. He did not respond to questions about his UDS. He denied any side effects to medications and we discussed Dr. Pillai returning tomorrow to make decisions about discharge and any other concerns. Mental Status Exam 2 MSE Comments: This is a slender white male in hospital scrubs with limited grooming and eye contact. No abnormal movements. Cooperative with exam in mild distress. Speech was mostly normal rate and volume. Mood described as better, affect slightly subdued. Thought process organized. Thought content: Patient denied suicidal or homicidal ideation, there were no delusions reported or noted, the auditory hallucinations. Attention and concentration appeared intact and memory was somewhat reliable but none were formally tested. He is alert and oriented x 3. Insight and judgment are limited and impulse control is impaired. Vitals/I&O/Wt Last Vital Signs Temp 98.1 F 03/11/24 06:00 Pulse 52 L 03/11/24 06:00 Resp 16 03/11/24 06:00 BP 117/74 03/11/24 06:00 Pulse Ox 97 03/11/24 06:00 O2 Del Method Room Air 03/10/24 14:00 03/10/24 03/11/24 03/11/24 22:59 06:59 14:59 Intake Total 0 / 0 Balance 0 / 0 Weight last 48 hrs Weight 72.938 kg Weight 77.111 kg Data NPU 03/09/24 18:18 03/09/24 18:18 A&P Assessment and plan (1) Bipolar 2 disorder: (2) Suicidal ideation: (3) Opioid dependence: Qualifiers: Substance use status: with opioid-induced mood disorder Qualified Code(s): F11.24 - Opioid dependence with opioid-induced mood disorder (4) ADD (attention deficit disorder): Qualifiers: Hyperactivity presence: present Attention deficit-hyperactivity disorder type: predominantly inattentive Qualified Code(s): 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 1. Encourage individual, group and milieu therapy. 2. Continue every 15 minute checks for safety. 3. Recommend sober living treatment at the highest level of care to which the patient is willing to commit. 4. We will restart medications and evaluate for safety given 96-hour hold. His methadone was restarted at 60 mg which is below the 70 mg which she had been at at the methadone clinic and we will work with them prior to discharge about what will be appropriate dose or what they want to do with him given his nonadherence. 5. Obtain collateral information. Involuntary Hold Information 2 96 Hour Hold: 96 Hour Involuntary Admission: Yes 96 Hour Hold Ending Date: 03/15/24 96 Hour Hold Ending Time: 18:10 Other Hold: Hold End Date: 02/01/24 Attestations NPU 2 Medical Necessity Statement*: Inpatient hospitalization is medically necessary and the clinically appropriate intervention at this time. We will monitor/initiate medications and make changes as indicated. Likely length of stay is 2-4 days. Coding Level of Care Code Acute Code for [facility] Diagnoses Bipolar 2 disorder F31.81 Suicidal ideation R45.851 Opioid dependence with opioid-induced mood disorder F11.24 Substance use status: with opioid-induced mood disorder Attention deficit hyperactivity disorder (ADHD), predominantly inattentive type F90.0 Hyperactivity presence: present Attention deficit-hyperactivity disorder type: predominantly inattentive Anxiety and depression F41.9; F32.9 Methamphetamine use disorder, severe F15.20 Alcohol use disorder, severe, dependence F10.20
[2024-03-11 08:41] VITALS: RESP 18
[2024-03-11] MEDS: methadone 10 mg Tablet 60 MG PO (08:41)
[2024-03-11] MEDS: nicotine 4 mg lozenge MUCOUS MEM ×3 (12:10→17:42)
[2024-03-11 14:00] VITALS: BP 129/86; PULSE 78; RESP 16; TEMP 36.7; O2SAT 99
[2024-03-11] MEDS: ARIPiprazole 10 mg Tablet PO (20:30)
[2024-03-11 21:12] VITALS: BP 110/68; PULSE 69; RESP 17; O2SAT 95
[2024-03-12 06:00] VITALS: BP 98/58; PULSE 71; RESP 16; TEMP 36.7; O2SAT 97
[2024-03-12 08:04] VITALS: RESP 18
[2024-03-12] MEDS: methadone 10 mg Tablet 60 MG PO (08:04)
--- NOTE | 2024-03-12 08:59 | PC.NURSE ---
VERBALLY GAVE STAFF PERMISSION TO SPEAK TO ABBY ORELLANA, ABOUT HIS CARE
[2024-03-12] MEDS: nicotine 4 mg lozenge MUCOUS MEM ×2 (10:13→17:01)
[2024-03-12 13:45] VITALS: BP 100/66; PULSE 64; RESP 16; TEMP 37; O2SAT 98
--- NOTE | 2024-03-12 17:26 | P.NPUPN_ITS ---
Subjective NPU 2 Subjective: Aj is a 28-year-old male with unspecified mood disorder admitted involuntarily with a substantial history of active polysubstance abuse. The patient continued to minimize any problems associated with his substance use as he continued to blame family members for bringing him here in the hospital. He reported that he had been missing his methadone appointments due to transportation issues. He had reported no methadone withdrawal issues while restarting methadone 60 mg daily. No side effects were reported. He had isolated himself throughout much of the day with limited participation in groups. He had denied having any thoughts of hurting himself or others. Mental Status Exam 2 MSE Comments: This is a slender white male in hospital scrubs with limited grooming and eye contact. No abnormal involuntary motor movements. He was cooperative with exam in mild distress. Speech was mostly normal rate and volume. Mood described as fine. His affect was subdued today. Thought process was linear and organized. Thought content: Patient denied suicidal or homicidal ideation, there were no delusions reported or noted. He denied auditory or visual hallucinations. Attention and concentration appeared intact and memory was somewhat unreliable and selective at this time. He is alert and oriented x 3. Insight is impaired. His judgment is limited. His impulse control is impaired. Vitals/I&O/Wt Last Vital Signs Temp 98.6 F 03/12/24 13:45 Pulse 64 03/12/24 13:45 Resp 16 03/12/24 13:45 BP 100/66 03/12/24 13:45 Pulse Ox 98 03/12/24 13:45 O2 Del Method Room Air 03/12/24 13:45 Weight last 48 hrs Weight 72.938 kg Data NPU 03/09/24 18:18 03/09/24 18:18 A&P Assessment and plan (1) Bipolar 2 disorder: (2) Suicidal ideation: (3) Opioid dependence: Qualifiers: Substance use status: with opioid-induced mood disorder Qualified Code(s): F11.24 - Opioid dependence with opioid-induced mood disorder (4) ADD (attention deficit disorder): Qualifiers: Hyperactivity presence: present Attention deficit-hyperactivity disorder type: predominantly inattentive Qualified Code(s): 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 1. Encourage individual, group and milieu therapy. 2. Continue every 15 minute checks for safety. 3. Recommend sober living treatment at the highest level of care to which the patient is willing to commit. 4. Continue Abilify 10mg daily, Methadone 60mg daily. Hold on stimulant prescribing at this time. 5. Obtain collateral information. Involuntary Hold Information 2 96 Hour Hold: 96 Hour Involuntary Admission: Yes 96 Hour Hold Ending Date: 03/15/24 96 Hour Hold Ending Time: 18:10 Other Hold: Hold End Date: 02/01/24 Attestations NPU 2 Medical Necessity Statement*: Inpatient hospitalization is medically necessary and the clinically appropriate intervention at this time. We will monitor/initiate medications and make changes as indicated. Likely length of stay is 2-4 days. Coding Level of Care Code Acute Code for [facility] Diagnoses Bipolar 2 disorder F31.81 Suicidal ideation R45.851 Opioid dependence with opioid-induced mood disorder F11.24 Substance use status: with opioid-induced mood disorder Attention deficit hyperactivity disorder (ADHD), predominantly inattentive type F90.0 Hyperactivity presence: present Attention deficit-hyperactivity disorder type: predominantly inattentive Anxiety and depression F41.9; F32.9 Methamphetamine use disorder, severe F15.20 Alcohol use disorder, severe, dependence F10.20
[2024-03-12] MEDS: ARIPiprazole 10 mg Tablet PO (20:31)
[2024-03-12 20:37] VITALS: BP 112/76; PULSE 60; RESP 18; TEMP 36.7; O2SAT 97
[2024-03-13 06:15] VITALS: BP 119/81; PULSE 67; TEMP 36.8; O2SAT 99
[2024-03-13 08:34] VITALS: RESP 16
[2024-03-13] MEDS: methadone 10 mg Tablet 60 MG PO (08:34)
[2024-03-13] MEDS: nicotine 2 mg Gum BUCCAL (11:58)
[2024-03-13 14:00] VITALS: BP 107/67; PULSE 58; RESP 17; TEMP 37.1; O2SAT 96
--- NOTE | 2024-03-13 17:08 | P.NPUPN_ITS ---
Subjective NPU 2 Subjective: Aj is a 28-year-old male with unspecified mood disorder admitted involuntarily with a substantial history of active polysubstance abuse. The patient had minimized his use of methamphetamine. He had reported no desire to consider substance abuse treatment either inpatient or outpatient. He had reported feeling tired. He had reported that he was not having suicidal thoughts. He denied any problems with paranoia. He was able to attend groups today. The patient had reported several hospitalizations over the last 12 to 15 months but continued to state that the involuntary hospitalizations were created by false information provided by family members. Mental Status Exam 2 MSE Comments: This is a slender white male in hospital scrubs with limited grooming and eye contact. No abnormal involuntary motor movements. He was cooperative with exam in mild distress. Speech was mostly normal rate and volume. Mood described as okay. His affect was brighter today. Thought process was linear and organized. Thought content: Patient denied suicidal or homicidal ideation, there were no delusions reported or noted. He denied auditory or visual hallucinations. Attention and concentration appeared intact and memory was grossly intact today. He is alert and oriented x 3. Insight is impaired. His judgment is limited. His impulse control is impaired. Vitals/I&O/Wt Last Vital Signs Temp 98.7 F 03/13/24 14:00 Pulse 58 L 03/13/24 14:00 Resp 17 03/13/24 14:00 BP 107/67 03/13/24 14:00 Pulse Ox 96 03/13/24 14:00 O2 Del Method Room Air 03/13/24 14:00 03/13/24 03/13/24 03/13/24 06:59 14:59 22:59 Intake Total 240 / 240 Balance 240 / 240 Data NPU 03/09/24 18:18 03/09/24 18:18 A&P Assessment and plan (1) Bipolar 2 disorder: (2) Suicidal ideation: (3) Opioid dependence: Qualifiers: Substance use status: with opioid-induced mood disorder Qualified Code(s): F11.24 - Opioid dependence with opioid-induced mood disorder (4) ADD (attention deficit disorder): Qualifiers: Hyperactivity presence: present Attention deficit-hyperactivity disorder type: predominantly inattentive Qualified Code(s): 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 1. Encourage individual, group and milieu therapy. 2. Continue every 15 minute checks for safety. 3. Recommend sober living treatment at the highest level of care to which the patient is willing to commit. 4. Continue Abilify 10mg daily, Methadone 60mg daily. Hold on stimulant prescribing at this time. 5. Obtain collateral information. Patient may benefit from guardianship given multiple hospitalizations, and inability to remain safe in external environment. Involuntary Hold Information 2 96 Hour Hold: 96 Hour Involuntary Admission: Yes 96 Hour Hold Ending Date: 03/15/24 96 Hour Hold Ending Time: 18:10 Other Hold: Hold End Date: 03/15/24 Attestations NPU 2 Medical Necessity Statement*: Inpatient hospitalization is medically necessary and the clinically appropriate intervention at this time. We will monitor/initiate medications and make changes as indicated. Likely length of stay is 1-2 days. Coding Level of Care Code Acute Code for [facility] Diagnoses Bipolar 2 disorder F31.81 Suicidal ideation R45.851 Opioid dependence with opioid-induced mood disorder F11.24 Substance use status: with opioid-induced mood disorder Attention deficit hyperactivity disorder (ADHD), predominantly inattentive type F90.0 Hyperactivity presence: present Attention deficit-hyperactivity disorder type: predominantly inattentive Anxiety and depression F41.9; F32.9 Methamphetamine use disorder, severe F15.20 Alcohol use disorder, severe, dependence F10.20
[2024-03-13] MEDS: nicotine 4 mg lozenge MUCOUS MEM (17:11)
[2024-03-13 19:38] VITALS: BP 128/79; PULSE 59; RESP 16; TEMP 36.8; O2SAT 95
[2024-03-13] MEDS: ARIPiprazole 10 mg Tablet PO (20:01)
[2024-03-14 06:00] VITALS: BP 106/69; PULSE 71; RESP 16; TEMP 36.9; O2SAT 96
[2024-03-14 08:03] VITALS: RESP 18; O2SAT 96
[2024-03-14] MEDS: methadone 10 mg Tablet 60 MG PO (08:03)
[2024-03-14] MEDS: nicotine 4 mg lozenge MUCOUS MEM (08:04)
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
[2024-03-14 14:00] VITALS: BP 129/82; PULSE 79; RESP 16; TEMP 36.9; O2SAT 97
[2024-03-14 15:26] VITALS: BP 104/69; PULSE 71; RESP 16; TEMP 36.9; O2SAT 97
== END 2024-03-14 15:18 | disposition home or self-care (01) | DRG 885 ==
LOC: ER 18:50 → NP 19:12
PROVIDERS: Admitting Provider Psychiatry & Neurology Psychiatry; Emergency Provider Emergency Medicine; Visit Provider Psychiatry & Neurology Psychiatry
DX: F31.81 Bipolar II disorder (principal); R45.851 Suicidal ideations; F15.20 Other stimulant dependence, uncomplicated; F11.24 Opioid dependence with opioid-induced mood disorder; F41.9 Anxiety disorder, unspecified; F10.20 Alcohol dependence, uncomplicated; F17.290 Nicotine dependence, other tobacco product, uncomplicated
CPT/HCPCS: 36415; 80053; 80306; 80307; 85025; 97150; 97165; 99285

== ENCOUNTER 2024-04-27 13:16 | Inpatient (IN) | payer BC, SELFPAY ==
[2024-04-27 13:18] VITALS: BP 123/75; PULSE 105; RESP 17; TEMP 36.8; O2SAT 92; BMI 22.9
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
[2024-04-27 14:15] LABS: Basophils % 0.4 %; Eosinophils # 0.1 10^3/uL (0.0-0.8); Eosinophils % 1.4 %; Hematocrit 46.7 % (37-53); Lymphocytes # 1.1 10^3/uL (0.8-4.8); Lymphocytes % 13.3 %; Mean Corpuscular HGB Conc 33.4 g/dL (30-55); Mean Corpuscular Volume 95.9 fl (82-101); Mean Platelet Volume 11.5 fL (7.4-10.4); Monocytes # 0.5 10^3/uL (0.2-0.9); Monocytes % 6.7 %; Neutrophils # 6.18 10^3/uL (1.8-7.7); Neutrophils % 77.9 %; Nucleated Red Blood Cells % 0 %; Platelet Count 158 10^3/cmm (157-399); Red Blood Count 4.87 10^6/uL (3.85-5.65); White Blood Count 7.92 10^3/uL (3.29-11.43)
[2024-04-27 14:48] LABS: Acetaminophen < 5.0 ug/mL (10-30); Alanine Aminotransferase 17 U/L (0-41); Alcohol Level < 10 mg/dL (0-10); Alkaline Phosphatase 112 U/L (40-130); Anion Gap 15.8 (5-19); Aspartate Amino Transferase 20 U/L (0-40); Blood Urea Nitrogen 9 mg/dL (6-20); Calcium 9.2 mg/dL (8.5-10.5); Carbon Dioxide 24 mmol/L (22-29); Chloride 103 mmol/L (98-107); Creatinine Clr Calc Pharmacy 160.3994; Globulin 2.7 g/dL (1.3-4.6); Glomerular Filtration Rate 133.3 mL/min (90-130); Glucose 108 mg/dL (65-115); Osmolality Calculated 287 mOsm/kg (285-295); Potassium 3.8 mmol/L (3.5-5.1); Salicylate < 0.3 mg/dL (3-10); Sodium 139 mmol/L (136-145); Total Bilirubin 0.4 mg/dL (0.15-1.2); Total Protein 6.7 g/dL (6.6-8.7)
--- NOTE | 2024-04-27 14:49 | PC.NURSE ---
96 hour hold rights read and reviewed with patient. Jayme from security present during reading or rights. Patient verbalized understandings and copy of rights given to patient.
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
[2024-04-27 16:47] LABS: Amphetamines Screen Urine Positive (Negative); Barbiturates Screen Urine Negative (Negative); Benzodiazepines Screen Urine Negative (Negative); Cocaine Screen Urine Negative (Negative); Opiate Screen Urine Negative (Negative); PCP Screen Urine Negative (Negative); THC Screen Urine Positive (Negative)
[2024-04-27 16:48] VITALS: BP 139/84; PULSE 93; RESP 16; TEMP 36.8; O2SAT 100
[2024-04-27 16:54] VITALS: BP 120/78; PULSE 70; O2SAT 99
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
[2024-04-27 22:00] VITALS: BP 142/82; PULSE 84; RESP 18; TEMP 37.3; O2SAT 98
[2024-04-28 06:00] VITALS: BP 135/89; PULSE 61; RESP 16; O2SAT 97
--- NOTE | 2024-04-28 06:42 | P.NPUHP_ITS ---
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 arthritis Diabetes Lupus Hyperlipidemia Chronic kidney disease (CKD) Social History Smoking and tobacco/nicotine status: current every day tobacco/nicotine user e- cigarettes E-Cigarette Details: vaporizer device and with nicotine E-cig/vape details: Refill(50 mg)/1 - 1.5 weeks. Quit status (tobacco/nicotine): has tried quititng Number of times tried to quit tobacco: 10 Second hand smoke exposure: No Alcohol intake: current Alcohol intake frequency: holidays/special occasions only Alcohol type: beer Substance/Drug Use: former Date of last use: xanax, hydrocodone, oxycodone, heroin, klonopin, mushrooms, lsd, MDMA & thc Caregiver/support person: No Lives independently: Yes Household members: spouse Marital status: Number of children: 1 service: No Do you think of yourself as: Straight/Heterosexual Current gender identity: Male Mental Status Exam 2 MSE Comments: This is a slender white male in hospital scrubs with limited grooming and eye contact. No abnormal movements except for psychomotor retardation. Cooperative with exam in mild distress. Speech was slightly decreased rate and volume. Mood described as I have been okay except for being here, affect subdued. Thought process organized. Thought content: Patient denied suicidal or homicidal ideation, there were no delusions reported or noted, he denied auditory or visual hallucinations. Attention and concentration appeared intact and memory was somewhat unreliable but likely intentionally so but none were formally tested. He is alert and oriented x 3. Insight and judgment are limited and impulse control is impaired. Vitals/I&O/Wt Last Vital Signs Temp 99.1 F 04/27/24 22:00 Pulse 61 04/28/24 06:00 Resp 16 04/28/24 06:00 BP 135/89 04/28/24 06:00 Pulse Ox 97 04/28/24 06:00 O2 Del Method Room Air 04/27/24 17:31 Weight last 48 hrs Weight 72.575 kg Data NPU 04/27/24 13:56 04/27/24 13:56 A&P Assessment and plan (1) Bipolar 2 disorder: (2) Suicidal ideation: (3) Opioid dependence: Qualifiers: Substance use status: with opioid-induced mood disorder Qualified Code(s): F11.24 - Opioid dependence with opioid-induced mood disorder (4) ADD (attention deficit disorder): Qualifiers: Attention deficit-hyperactivity disorder type: predominantly inattentive Hyperactivity presence: present Qualified Code(s): F90.0 - Attention-deficit hyperactivity disorder, predominantly inattentive type (5) Anxiety and depression: (6) Suicidal ideation: (7) Methamphetamine use disorder, severe: (8) Alcohol use disorder, severe, dependence: (9) Suicidal ideation: Plan Patient is a 29-year-old white male who presents on his fourth hospitalization since September 2023 who has been previously admitted with suicidal ideation with a history of panic disorder, bipolar 2 disorder, ADHD and opioid dependence on methadone with previous history of being treated with Klonopin and Ritalin for reported ADHD. He presents on a 96-hour hold petitioned in part by his mother secondary to reported erratic behaviors with UDS once again positive for cannabis and amphetamines. 1. Encourage individual, group and milieu therapy. 2. Continue every 15 minute checks for safety. 3. Recommend sober living treatment at the highest level of care to which the patient is willing to commit. 4. We will restart medications and evaluate for safety given 96-hour hold. His methadone was given at 60 mg the last time he was here and he reports being on the same dose. 5. Obtain collateral information. 6. Evaluate against the backdrop of the 96-hour hold. PDMP PDMP Reviewed: Not Reviewed Involuntary Hold Information 2 96 Hour Hold: 96 Hour Involuntary Admission: Yes Other Hold: Hold End Date: 03/15/24 Attestations NPU 2 Medical Necessity Statement*: Inpatient hospitalization is medically necessary and the clinically appropriate intervention at this time. We will monitor/initiate medications and make changes as indicated. He will be in the hospital for over 2 midnights. Likely length of stay is 3-5 days. Coding Level of Care Code Acute Code for [facility] Fwd Diagnoses Bipolar 2 disorder F31.81 Suicidal ideation R45.851 Opioid dependence with opioid-induced mood disorder F11.24 Substance use status: with opioid-induced mood disorder Attention deficit hyperactivity disorder (ADHD), predominantly inattentive type F90.0 Attention deficit-hyperactivity disorder type: predominantly inattentive Hyperactivity presence: present Anxiety and depression F41.9; F32.9 Methamphetamine use disorder, severe F15.20 Alcohol use disorder, severe, dependence F10.20
[2024-04-28] MEDS: nicotine 4 mg lozenge MUCOUS MEM ×2 (11:30→16:02)
[2024-04-28 13:50] VITALS: RESP 18
[2024-04-28] MEDS: methadone 10 mg Tablet 60 MG PO (13:50)
[2024-04-28 14:00] VITALS: BP 115/81; PULSE 66; RESP 16; TEMP 36.8; O2SAT 100
[2024-04-28 20:00] VITALS: BP 115/67; PULSE 67; RESP 15; TEMP 36.7; O2SAT 96
[2024-04-28] MEDS: ARIPiprazole 10 mg Tablet PO (20:26)
[2024-04-28 22:00] VITALS: BP 115/67; PULSE 67; RESP 15; TEMP 36.7; O2SAT 96
[2024-04-29 06:00] VITALS: BP 127/77; PULSE 59; RESP 16; TEMP 36.6; O2SAT 96
[2024-04-29 08:52] VITALS: RESP 16
[2024-04-29] MEDS: methadone 10 mg Tablet 60 MG PO (08:52)
[2024-04-29] MEDS: nicotine 4 mg lozenge MUCOUS MEM (08:55)
[2024-04-29 14:00] VITALS: BP 120/60; PULSE 60; RESP 16; TEMP 37; O2SAT 96
--- NOTE | 2024-04-29 15:26 | P.NPUPN_ITS ---
Subjective NPU 2 Subjective: Patient presented today reporting that he is doing fine in general but continues to lament about why he is here in the first place. We discussed reviewing his affidavits but that 1 likely concern is his drug use with his positive UDS. He continues to be isolative and apparently frustrated per staff reports and direct observation. We discussed getting in contact with his family and getting some collateral information to understand the concerns. He denied any side effects to the medications. Mental Status Exam 2 MSE Comments: This is a slender white male in hospital scrubs with limited grooming and eye contact. No abnormal movements except for psychomotor retardation. Cooperative with exam in mild distress. Speech was slightly decreased rate and volume. Mood described as I have been okay except for being here, affect subdued. Thought process organized. Thought content: Patient denied suicidal or homicidal ideation, there were no delusions reported or noted, he denied auditory or visual hallucinations. Attention and concentration appeared intact and memory was somewhat unreliable but likely intentionally so but none were formally tested. He is alert and oriented x 3. Insight and judgment are limited and impulse control is impaired. Vitals/I&O/Wt Last Vital Signs Temp 98.6 F 04/29/24 14:00 Pulse 60 04/29/24 14:00 Resp 16 04/29/24 14:00 BP 120/60 04/29/24 14:00 Pulse Ox 96 04/29/24 14:00 O2 Del Method Room Air 04/29/24 14:00 Weight last 48 hrs Weight 68.039 kg Data NPU 04/27/24 13:56 04/27/24 13:56 A&P Assessment and plan (1) Bipolar 2 disorder: (2) Suicidal ideation: (3) Opioid dependence: Qualifiers: Substance use status: with opioid-induced mood disorder Qualified Code(s): F11.24 - Opioid dependence with opioid-induced mood disorder (4) ADD (attention deficit disorder): Qualifiers: Hyperactivity presence: present Attention deficit-hyperactivity disorder type: predominantly inattentive Qualified Code(s): 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, predominantly inattentive type (5) Anxiety and depression: (6) Suicidal ideation: (7) Methamphetamine use disorder, severe: (8) Alcohol use disorder, severe, dependence: (9) Suicidal ideation: Plan Patient is a 29-year-old white male who presents on his fourth hospitalization since September 2023 who has been previously admitted with suicidal ideation with a history of panic disorder, bipolar 2 disorder, ADHD and opioid dependence on methadone with previous history of being treated with Klonopin and Ritalin for reported ADHD. He presents on a 96-hour hold petitioned in part by his mother secondary to reported erratic behaviors with UDS once again positive for cannabis and amphetamines. 1. Encourage individual, group and milieu therapy. 2. Continue every 15 minute checks for safety. 3. Recommend sober living treatment at the highest level of care to which the patient is willing to commit. 4. We will restart medications and evaluate for safety given 96-hour hold. His methadone was given at 60 mg the last time he was here and he reports being on the same dose. 5. Obtain collateral information. 6. Evaluate against the backdrop of the 96-hour hold. PDMP PDMP Reviewed: Not Reviewed Involuntary Hold Information 2 96 Hour Hold: 96 Hour Involuntary Admission: Yes Other Hold: Hold End Date: 03/15/24 Attestations NPU 2 Medical Necessity Statement*: Inpatient hospitalization is medically necessary and the clinically appropriate intervention at this time. We will monitor/initiate medications and make changes as indicated. Likely length of stay is 2-4 days. Coding Level of Care Code Acute Code for [facility] Diagnoses Bipolar 2 disorder F31.81 Suicidal ideation R45.851 Opioid dependence with opioid-induced mood disorder F11.24 Substance use status: with opioid-induced mood disorder Attention deficit hyperactivity disorder (ADHD), predominantly inattentive type F90.0 Hyperactivity presence: present Attention deficit-hyperactivity disorder type: predominantly inattentive Anxiety and depression F41.9; F32.9 Methamphetamine use disorder, severe F15.20 Alcohol use disorder, severe, dependence F10.20
[2024-04-29] MEDS: trazodone 50 mg Tablet PO (20:44)
[2024-04-29] MEDS: hyDROXYzine 25 mg Capsule 50 MG PO (20:44)
[2024-04-29] MEDS: ARIPiprazole 10 mg Tablet PO (20:44)
[2024-04-29 22:00] VITALS: BP 133/83; PULSE 65; RESP 18; TEMP 36.6; O2SAT 98
[2024-04-30 06:00] VITALS: BP 133/81; PULSE 55; RESP 16; O2SAT 99
[2024-04-30] MEDS: methadone 10 mg Tablet 60 MG PO (07:57)
[2024-04-30 14:00] VITALS: BP 120/73; PULSE 57; RESP 15; O2SAT 97
--- NOTE | 2024-04-30 14:39 | P.NPUPN_ITS ---
Subjective NPU 2 Subjective: Patient presents today continuing to report being unaware of the reason for his hospitalization per staff reports and direct conversation. We discussed the fact that affidavits in his chart include all the people that he is reporting would be part of the conversations that would exonerate me. We discussed concerns that his lack of sobriety especially from methamphetamine might be contributing to the mercurial nature of his life. He denied any side effects of medication and continued to report that he does not believe the guardianship hearing for 05/10/2024 is something his mother plans on doing. Mental Status Exam 2 MSE Comments: This is a slender white male in hospital scrubs with limited grooming and eye contact. No abnormal movements except for psychomotor retardation. Cooperative with exam in mild distress. Speech was slightly decreased rate and volume. Mood described as I have been okay except for being here, affect subdued. Thought process organized. Thought content: Patient denied suicidal or homicidal ideation, there were no delusions reported or noted, he denied auditory or visual hallucinations. Attention and concentration appeared intact and memory was somewhat unreliable but likely intentionally so but none were formally tested. He is alert and oriented x 3. Insight and judgment are limited and impulse control is impaired. Vitals/I&O/Wt Last Vital Signs Temp 97.8 F 04/29/24 22:00 Pulse 57 L 04/30/24 14:00 Resp 15 04/30/24 14:00 BP 120/73 04/30/24 14:00 Pulse Ox 97 04/30/24 14:00 O2 Del Method Room Air 04/29/24 14:00 Weight last 48 hrs Weight 68.039 kg Data NPU 04/27/24 13:56 04/27/24 13:56 A&P Assessment and plan (1) Bipolar 2 disorder: (2) Suicidal ideation: (3) Opioid dependence: Qualifiers: Substance use status: with opioid-induced mood disorder Qualified Code(s): F11.24 - Opioid dependence with opioid-induced mood disorder (4) ADD (attention deficit disorder): Qualifiers: Hyperactivity presence: present Attention deficit-hyperactivity disorder type: predominantly inattentive Qualified Code(s): 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, predominantly inattentive type (5) Anxiety and depression: (6) Suicidal ideation: (7) Methamphetamine use disorder, severe: (8) Alcohol use disorder, severe, dependence: (9) Suicidal ideation: Plan Patient is a 29-year-old white male who presents on his fourth hospitalization since September 2023 who has been previously admitted with suicidal ideation with a history of panic disorder, bipolar 2 disorder, ADHD and opioid dependence on methadone with previous history of being treated with Klonopin and Ritalin for reported ADHD. He presents on a 96-hour hold petitioned in part by his mother secondary to reported erratic behaviors with UDS once again positive for cannabis and amphetamines. 1. Encourage individual, group and milieu therapy. 2. Continue every 15 minute checks for safety. 3. Recommend sober living treatment at the highest level of care to which the patient is willing to commit. 4. We will restart medications and evaluate for safety given 96-hour hold. His methadone was given at 60 mg the last time he was here and he reports being on the same dose. 5. Obtain collateral information. 6. Evaluate against the backdrop of the 96-hour hold. PDMP PDMP Reviewed: Not Reviewed Involuntary Hold Information 2 96 Hour Hold: 96 Hour Involuntary Admission: Yes Other Hold: Hold End Date: 03/15/24 Attestations NPU 2 Medical Necessity Statement*: Inpatient hospitalization is medically necessary and the clinically appropriate intervention at this time. We will monitor/initiate medications and make changes as indicated. Likely length of stay is 2-4 days. Coding Level [facility] Care Code [facility] Diagnoses Bipolar 2 disorder F31.81 Suicidal ideation R45.851 Opioid dependence with opioid-induced mood disorder F11.24 Substance use status: with opioid-induced mood disorder Attention deficit hyperactivity disorder (ADHD), predominantly inattentive type F90.0 Hyperactivity presence: present Attention deficit-hyperactivity disorder type: predominantly inattentive Anxiety and depression F41.9; F32.9 Methamphetamine use disorder, severe F15.20 Alcohol use disorder, severe, dependence F10.20
[2024-04-30] MEDS: nicotine 4 mg lozenge MUCOUS MEM (17:57)
[2024-04-30] MEDS: ARIPiprazole 10 mg Tablet PO (20:17)
[2024-04-30 20:40] VITALS: BP 110/69; PULSE 80; RESP 18; TEMP 36.7; O2SAT 96
[2024-05-01 06:00] VITALS: BP 107/64; PULSE 81; RESP 18; TEMP 36.7; O2SAT 97
[2024-05-01 07:39] VITALS: RESP 16
[2024-05-01] MEDS: nicotine 4 mg lozenge MUCOUS MEM ×3 (07:39→15:12)
[2024-05-01] MEDS: methadone 10 mg Tablet 60 MG PO (07:39)
[2024-05-01 14:00] VITALS: BP 135/67; PULSE 64; RESP 16; O2SAT 94
[2024-05-01 19:41] VITALS: BP 149/69; PULSE 78; RESP 16; TEMP 36.9; O2SAT 92
[2024-05-01] MEDS: ARIPiprazole 10 mg Tablet PO (20:09)
--- NOTE | 2024-05-01 20:16 | W.PM.NPUPNS ---
Subjective NPU Subjective: Patient presented today reporting that he is doing fine. We had a lengthy discussion about the circumstances, the guardianship and his addiction. He continues to have very poor insight per staff reports and direct conversation with him downplaying any role that his addiction might have, accentuating the significant role he reports that his mother has and seeming to feel like assuming his he and his get a place together again all of his problems will be solved. From his perspective not having his own place and not having a job are more issues related to his mother's than his own behavior. He denied any side effects to his medications. We agreed that we would speak to his . Mental Status Exam MSE Comments: This is a slender white male in hospital scrubs with limited grooming and eye contact. No abnormal movements except for psychomotor retardation. Cooperative with exam in mild distress. Speech was slightly decreased rate and volume. Mood described as I have been okay except for being here, affect subdued. Thought process organized. Thought content: Patient denied suicidal or homicidal ideation, there were no delusions reported or noted, he denied auditory or visual hallucinations. Attention and concentration appeared intact and memory was somewhat unreliable but likely intentionally so but none were formally tested. He is alert and oriented x 3. Insight and judgment are limited and impulse control is impaired. Vitals/I&O/Wt Last Vital Signs Temp 98.5 F 05/01/24 19:41 Pulse 78 05/01/24 19:41 Resp 16 05/01/24 19:41 BP 149/69 05/01/24 19:41 Pulse Ox 92 05/01/24 19:41 O2 Del Method Room Air 05/01/24 19:41 Data NPU 04/27/24 13:56 04/27/24 13:56 A&P Assessment and plan (1) Bipolar 2 disorder: (2) Suicidal ideation: (3) Opioid dependence: Qualifiers: Substance use status: with opioid-induced mood disorder Qualified Code(s): F11.24 - Opioid dependence with opioid-induced mood disorder (4) ADD (attention deficit disorder): Qualifiers: Hyperactivity presence: present Attention deficit-hyperactivity disorder type: predominantly inattentive Qualified Code(s): F90.0 - Attention-deficit hyperactivity disorder, predominantly inattentive type (5) Anxiety and depression: (6) Suicidal ideation: (7) Methamphetamine use disorder, severe: (8) Alcohol use disorder, severe, dependence: (9) Suicidal ideation: Plan Patient is a 29-year-old white male who presents on his fourth hospitalization since September 2023 who has been previously admitted with suicidal ideation with a history of panic disorder, bipolar 2 disorder, ADHD and opioid dependence on methadone with previous history of being treated with Klonopin and Ritalin for reported ADHD. He presents on a 96-hour hold petitioned in part by his mother secondary to reported erratic behaviors with UDS once again positive for cannabis and amphetamines. 1. Encourage individual, group and milieu therapy. 2. Continue every 15 minute checks for safety. 3. Recommend sober living treatment at the highest level of care to which the patient is willing to commit. 4. We will restart medications and evaluate for safety given 96-hour hold. His methadone was given at 60 mg the last time he was here and he reports being on the same dose. 5. Obtain collateral information. 6. Evaluate against the backdrop of the 96-hour hold. PDMP PDMP Reviewed: Not Reviewed Involuntary Hold Information 96 Hour Hold: 96 Hour Involuntary Admission: Yes Other Hold: Hold End Date: 03/15/24 Attestations NPU Medical Necessity Statement*: Inpatient hospitalization is medically necessary and the clinically appropriate intervention at this time. We will monitor/initiate medications and make changes as indicated. Likely length of stay is 2-4 days. May consider continuing on a 21-day hold given hearing in 9 days. Coding Level of Care Code Acute Code for [facility] Fwd Diagnoses Bipolar 2 disorder F31.81 Suicidal ideation R45.851 Opioid dependence with opioid-induced mood disorder F11.24 Substance use status: with opioid-induced mood disorder Attention deficit hyperactivity disorder (ADHD), predominantly inattentive type F90.0 Hyperactivity presence: present Attention deficit-hyperactivity disorder type: predominantly inattentive Anxiety and depression F41.9; F32.9 Methamphetamine use disorder, severe F15.20 Alcohol use disorder, severe, dependence F10.20
[2024-05-02 06:00] VITALS: BP 137/89; PULSE 60; RESP 16; TEMP 36.6; O2SAT 97
[2024-05-02 08:24] VITALS: RESP 18
[2024-05-02] MEDS: methadone 10 mg Tablet 60 MG PO (08:24)
--- NOTE | 2024-05-02 11:25 | W.PM.NPUPNS ---
Subjective NPU Subjective: Patient presented today reporting that he is feeling fine. We discussed the fact that his brother called and. Information that was consistent with this functional tester typewriters's concern. His brother reported that he was having significant problems with his addiction contradicting patient's position that things have not been that bad and that once he gets his domicile with his everything will be better. He continues to be resistant to really addressing his sober living challenges but did report a willingness to consider a long-acting injectable. He denied any side effects to his medication. Mental Status Exam MSE Comments: This is a slender white male in hospital scrubs with limited grooming and eye contact. No abnormal movements except for psychomotor retardation. Cooperative with exam in mild distress. Speech was slightly decreased rate and volume. Mood described as I have been okay except for being here, affect subdued. Thought process organized. Thought content: Patient denied suicidal or homicidal ideation, there were no delusions reported or noted, he denied auditory or visual hallucinations. Attention and concentration appeared intact and memory was somewhat unreliable but likely intentionally so but none were formally tested. He is alert and oriented x 3. Insight and judgment are limited and impulse control is impaired. Vitals/I&O/Wt Last Vital Signs Temp 97.9 F 05/02/24 06:00 Pulse 60 05/02/24 06:00 Resp 18 05/02/24 08:24 BP 137/89 05/02/24 06:00 Pulse Ox 97 05/02/24 06:00 O2 Del Method Room Air 05/02/24 06:00 Data NPU 04/27/24 13:56 04/27/24 13:56 A&P Assessment and plan (1) Bipolar 2 disorder: (2) Suicidal ideation: (3) Opioid dependence: Qualifiers: Substance use status: with opioid-induced mood disorder Qualified Code(s): F11.24 - Opioid dependence with opioid-induced mood disorder (4) ADD (attention deficit disorder): Qualifiers: Attention deficit-hyperactivity disorder type: predominantly inattentive Hyperactivity presence: present Qualified Code(s): F90.0 - Attention-deficit hyperactivity disorder, predominantly inattentive type (5) Anxiety and depression: (6) Suicidal ideation: (7) Methamphetamine use disorder, severe: (8) Alcohol use disorder, severe, dependence: (9) Suicidal ideation: Plan Patient is a 29-year-old white male who presents on his fourth hospitalization since September 2023 who has been previously admitted with suicidal ideation with a history of panic disorder, bipolar 2 disorder, ADHD and opioid dependence on methadone with previous history of being treated with Klonopin and Ritalin for reported ADHD. He presents on a 96-hour hold petitioned in part by his mother secondary to reported erratic behaviors with UDS once again positive for cannabis and amphetamines. 1. Encourage individual, group and milieu therapy. 2. Continue every 15 minute checks for safety. 3. Recommend sober living treatment at the highest level of care to which the patient is willing to commit. 4. We will restart medications and evaluate for safety given 96-hour hold. His methadone was given at 60 mg the last time he was here and he reports being on the same dose. 5. Obtain collateral information. 6. Evaluate against the backdrop of the 96-hour hold. PDMP PDMP Reviewed: Not Reviewed Involuntary Hold Information 96 Hour Hold: 96 Hour Involuntary Admission: Yes Other Hold: Hold End Date: 03/15/24 Attestations NPU Medical Necessity Statement*: Inpatient hospitalization is medically necessary and the clinically appropriate intervention at this time. We will monitor/initiate medications and make changes as indicated. Likely length of stay is 2-4 days. Move to 21-day hold given guardianship hearing in 9 days. Coding Level of Care Code Acute Code for [facility] Diagnoses Bipolar 2 disorder F31.81 Suicidal ideation R45.851 Opioid dependence with opioid-induced mood disorder F11.24 Substance use status: with opioid-induced mood disorder Attention deficit hyperactivity disorder (ADHD), predominantly inattentive type F90.0 Attention deficit-hyperactivity disorder type: predominantly inattentive Hyperactivity presence: present Anxiety and depression F41.9; F32.9 Methamphetamine use disorder, severe F15.20 Alcohol use disorder, severe, dependence F10.20
[2024-05-02 14:00] VITALS: BP 126/86; PULSE 72; RESP 18; TEMP 37; O2SAT 96
--- NOTE | 2024-05-02 15:42 | PC.NURSE ---
pt requesting to take monthly abilify injection.
[2024-05-02 20:08] VITALS: BP 110/75; PULSE 87; RESP 16; TEMP 36.6; O2SAT 97
[2024-05-02] MEDS: ARIPiprazole 10 mg Tablet PO (21:05)
[2024-05-03 06:00] VITALS: BP 125/75; PULSE 87; RESP 17; TEMP 37; O2SAT 96
[2024-05-03] MEDS: nicotine 4 mg lozenge MUCOUS MEM ×5 (07:49→19:27)
[2024-05-03 08:07] VITALS: RESP 18
[2024-05-03] MEDS: methadone 10 mg Tablet 60 MG PO (08:07)
--- NOTE | 2024-05-03 12:16 | P.NPUPN_ITS ---
Subjective NPU 2 Subjective: Patient presented today reporting that he is doing okay. He was not happy per his report about not being discharged and having the he wanted to attend tomorrow. We discussed agreeing that he could watch the by video. We discussed the decision being mostly based on his continued lack of insight and continued reports that things have been much worse than he is reporting. He continues to believe that if he gets a place with his everything will be better and he will have a job in the be no problems. We discussed the 21-day hold and that the hearing would likely be at the beginning of the week. He denied any side effects to the medication. Mental Status Exam 2 MSE Comments: This is a slender white male in hospital scrubs with limited grooming and eye contact. No abnormal movements except for psychomotor retardation. Cooperative with exam in mild distress. Speech was slightly decreased rate and volume. Mood described as I have been okay except for being here, affect subdued. Thought process organized. Thought content: Patient denied suicidal or homicidal ideation, there were no delusions reported or noted, he denied auditory or visual hallucinations. Attention and concentration appeared intact and memory was somewhat unreliable but likely intentionally so but none were formally tested. He is alert and oriented x 3. Insight and judgment are limited and impulse control is impaired. Vitals/I&O/Wt Last Vital Signs Temp 98.6 F 05/03/24 06:00 Pulse 87 05/03/24 06:00 Resp 18 05/03/24 08:07 BP 125/75 05/03/24 06:00 Pulse Ox 96 05/03/24 06:00 O2 Del Method Room Air 05/03/24 06:00 Data NPU 04/27/24 13:56 04/27/24 13:56 A&P Assessment and plan (1) Bipolar 2 disorder: (2) Suicidal ideation: (3) Opioid dependence: Qualifiers: Substance use status: with opioid-induced mood disorder Qualified Code(s): F11.24 - Opioid dependence with opioid-induced mood disorder (4) ADD (attention deficit disorder): Qualifiers: Attention deficit-hyperactivity disorder type: predominantly inattentive Hyperactivity presence: present Qualified Code(s): F90.0 - Attention-deficit hyperactivity disorder, predominantly inattentive type (5) Anxiety and depression: (6) Suicidal ideation: (7) Methamphetamine use disorder, severe: (8) Alcohol use disorder, severe, dependence: (9) Suicidal ideation: Plan Patient is a 29-year-old white male who presents on his fourth hospitalization since September 2023 who has been previously admitted with suicidal ideation with a history of panic disorder, bipolar 2 disorder, ADHD and opioid dependence on methadone with previous history of being treated with Klonopin and Ritalin for reported ADHD. He presents on a 96-hour hold petitioned in part by his mother secondary to reported erratic behaviors with UDS once again positive for cannabis and amphetamines. 1. Encourage individual, group and milieu therapy. 2. Continue every 15 minute checks for safety. 3. Recommend sober living treatment at the highest level of care to which the patient is willing to commit. 4. We will restart medications and evaluate for safety given 96-hour hold. His methadone was given at 60 mg the last time he was here and he reports being on the same dose. 5. Obtain collateral information. 6. Filed for 21 day hold. PDMP PDMP Reviewed: Not Reviewed Involuntary Hold Information 2 96 Hour Hold: 96 Hour Involuntary Admission: Yes Other Hold: Hold End Date: 03/15/24 Attestations NPU 2 Medical Necessity Statement*: Inpatient hospitalization is medically necessary and the clinically appropriate intervention at this time. We will monitor/initiate medications and make changes as indicated. Likely length of stay is 2-4 days. Move to 21-day hold given guardianship hearing in 6 days. Coding Level of Care Code Acute Code for [facility] Fwd Diagnoses Bipolar 2 disorder F31.81 Suicidal ideation R45.851 Opioid dependence with opioid-induced mood disorder F11.24 Substance use status: with opioid-induced mood disorder Attention deficit hyperactivity disorder (ADHD), predominantly inattentive type F90.0 Attention deficit-hyperactivity disorder type: predominantly inattentive Hyperactivity presence: present Anxiety and depression F41.9; F32.9 Methamphetamine use disorder, severe F15.20 Alcohol use disorder, severe, dependence F10.20
[2024-05-03 14:00] VITALS: BP 115/71; PULSE 102; RESP 16; TEMP 37.1; O2SAT 97
[2024-05-03 20:06] VITALS: BP 128/89; PULSE 93; RESP 18; TEMP 36.7; O2SAT 96
[2024-05-03] MEDS: ARIPiprazole 10 mg Tablet PO (20:46)
[2024-05-04 06:00] VITALS: BP 107/68; PULSE 86; RESP 17; TEMP 36.7; O2SAT 97
[2024-05-04 08:56] VITALS: RESP 18
[2024-05-04] MEDS: methadone 10 mg Tablet 60 MG PO (08:56)
[2024-05-04] MEDS: nicotine 4 mg lozenge MUCOUS MEM (11:49)
[2024-05-04 14:00] VITALS: BP 129/76; PULSE 68; RESP 16; TEMP 37; O2SAT 98
--- NOTE | 2024-05-04 15:38 | P.NPUPN_ITS ---
Subjective NPU 2 Subjective: Patient presented today reporting he is doing okay. He tolerated the reality that he was missing the without any incident. We continue to have conversations about the impact of his addiction on his functioning and he continues to endorse a belief that he will be fine by just moving in with his when an opportunity comes available. He did mention possibly going to a sober living facility which we discussed would be advantageous. 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 We had discussed that this is likely the case on multiple occasions. He denied any side effects to his medication. Mental Status Exam 2 MSE Comments: This is a slender white male in hospital scrubs with limited grooming and eye contact. No abnormal movements except for psychomotor retardation. Cooperative with exam in mild distress. Speech was slightly decreased rate and volume. Mood described as I am okay, affect subdued. Thought process organized. Thought content: Patient denied suicidal or homicidal ideation, there were no delusions reported or noted, he denied auditory or visual hallucinations. Attention and concentration appeared intact and memory was somewhat unreliable but likely intentionally so but none were formally tested. He is alert and oriented x 3. Insight and judgment are limited and impulse control is impaired. Vitals/I&O/Wt Last Vital Signs Temp 98.1 F 05/04/24 06:00 Pulse 86 05/04/24 06:00 Resp 18 05/04/24 08:56 BP 107/68 05/04/24 06:00 Pulse Ox 97 05/04/24 06:00 O2 Del Method Room Air 05/04/24 06:00 Data NPU 04/27/24 13:56 04/27/24 13:56 A&P Assessment and plan (1) Bipolar 2 disorder: (2) Suicidal ideation: (3) Opioid dependence: Qualifiers: Substance use status: with opioid-induced mood disorder Qualified Code(s): F11.24 - Opioid dependence with opioid-induced mood disorder (4) ADD (attention deficit disorder): Qualifiers: Hyperactivity presence: present Attention deficit-hyperactivity disorder type: predominantly inattentive Qualified Code(s): 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, predominantly inattentive type (5) Anxiety and depression: (6) Suicidal ideation: (7) Methamphetamine use disorder, severe: (8) Alcohol use disorder, severe, dependence: (9) Suicidal ideation: Plan Patient is a 29-year-old white male who presents on his fourth hospitalization since September 2023 who has been previously admitted with suicidal ideation with a history of panic disorder, bipolar 2 disorder, ADHD and opioid dependence on methadone with previous history of being treated with Klonopin and Ritalin for reported ADHD. He presents on a 96-hour hold petitioned in part by his mother secondary to reported erratic behaviors with UDS once again positive for cannabis and amphetamines. 1. Encourage individual, group and milieu therapy. 2. Continue every 15 minute checks for safety. 3. Recommend sober living treatment at the highest level of care to which the patient is willing to commit. 4. We restarted medications and evaluate for safety given 96-hour hold. His methadone was given at 60 mg the last time he was here and he reports being on the same dose. He has endorsed an openness to take the long-acting injectable Abilify Maintena 5. Obtain collateral information. 6. Filed for 21 day hold. PDMP PDMP Reviewed: Not Reviewed Involuntary Hold Information 2 Hold Status: Legal Status: 96 Hour Hold and Pursuing Guardianship Date/Time Hold Expires: 05/03/24 @ 13:20 96 Hour Hold: 96 Hour Involuntary Admission: Yes Other Hold: Hold End Date: 03/15/24 Attestations NPU 2 Medical Necessity Statement*: Inpatient hospitalization is medically necessary and the clinically appropriate intervention at this time. We will monitor/initiate medications and make changes as indicated. Likely length of stay is 2-4 days. Move to 21-day hold given guardianship hearing in 6 days. Coding Level of Care Code Acute Code for [facility] Fwd Diagnoses Bipolar 2 disorder F31.81 Suicidal ideation R45.851 Opioid dependence with opioid-induced mood disorder F11.24 Substance use status: with opioid-induced mood disorder Attention deficit hyperactivity disorder (ADHD), predominantly inattentive type F90.0 Hyperactivity presence: present Attention deficit-hyperactivity disorder type: predominantly inattentive Anxiety and depression F41.9; F32.9 Methamphetamine use disorder, severe F15.20 Alcohol use disorder, severe, dependence F10.20
[2024-05-04 20:52] VITALS: BP 121/71; PULSE 65; RESP 16; O2SAT 96
[2024-05-04] MEDS: ARIPiprazole 10 mg Tablet PO (20:59)
[2024-05-05 06:00] VITALS: BP 125/82; PULSE 62; RESP 16; TEMP 36.9; O2SAT 93
[2024-05-05 08:01] VITALS: RESP 16
[2024-05-05] MEDS: nicotine 4 mg lozenge MUCOUS MEM ×2 (08:01→14:31)
[2024-05-05] MEDS: methadone 10 mg Tablet 60 MG PO (08:01)
[2024-05-05 14:00] VITALS: BP 150/93; PULSE 77; RESP 15; TEMP 36.8; O2SAT 97
--- NOTE | 2024-05-05 17:27 | P.NPUPN_ITS ---
Subjective NPU 2 Subjective: Patient presented today reporting that he is doing all right. We continue to have discussions about his recovery and active addiction and avoiding this idea that him moving in with his is going to fix his addiction. We discussed the fact that it did not fix it before and he has no real answer for why it would fix it now other than he would like it to be that way. We discussed him having a hearing on Tuesday and that Dr. Pillai would be here tomorrow to manage things moving forward. We discussed the fact that him getting in some treatment program and getting his addiction under control is his only real fight against guardianship or at least people believing he needs guardianship. He denied any side effects to his medications. Mental Status Exam 2 MSE Comments: This is a slender white male in hospital scrubs with limited grooming and eye contact. No abnormal movements except for psychomotor retardation. Cooperative with exam in mild distress. Speech was slightly decreased rate and volume. Mood described as I am okay, affect subdued. Thought process organized. Thought content: Patient denied suicidal or homicidal ideation, there were no delusions reported or noted, he denied auditory or visual hallucinations. Attention and concentration appeared intact and memory was somewhat unreliable but likely intentionally so but none were formally tested. He is alert and oriented x 3. Insight and judgment are limited and impulse control is impaired. Vitals/I&O/Wt Last Vital Signs Temp 98.2 F 05/05/24 21:08 Pulse 78 05/05/24 21:08 Resp 16 05/05/24 21:08 BP 120/74 05/05/24 21:08 Pulse Ox 95 05/05/24 21:08 O2 Del Method Room Air 05/04/24 14:00 Data NPU 04/27/24 13:56 04/27/24 13:56 A&P Assessment and plan (1) Bipolar 2 disorder: (2) Suicidal ideation: (3) Opioid dependence: Qualifiers: Substance use status: with opioid-induced mood disorder Qualified Code(s): F11.24 - Opioid dependence with opioid-induced mood disorder (4) ADD (attention deficit disorder): Qualifiers: Hyperactivity presence: present Attention deficit-hyperactivity disorder type: predominantly inattentive Qualified Code(s): 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, predominantly inattentive type (5) Anxiety and depression: (6) Suicidal ideation: (7) Methamphetamine use disorder, severe: (8) Alcohol use disorder, severe, dependence: (9) Suicidal ideation: Plan Patient is a 29-year-old white male who presents on his fourth hospitalization since September 2023 who has been previously admitted with suicidal ideation with a history of panic disorder, bipolar 2 disorder, ADHD and opioid dependence on methadone with previous history of being treated with Klonopin and Ritalin for reported ADHD. He presents on a 96-hour hold petitioned in part by his mother secondary to reported erratic behaviors with UDS once again positive for cannabis and amphetamines. 1. Encourage individual, group and milieu therapy. 2. Continue every 15 minute checks for safety. 3. Recommend sober living treatment at the highest level of care to which the patient is willing to commit. 4. We restarted medications and evaluate for safety given 96-hour hold. His methadone was given at 60 mg the last time he was here and he reports being on the same dose. He has endorsed an openness to take the long-acting injectable Abilify Maintena 5. Obtain collateral information. 6. Filed for 21 day hold. The hearing will be on Tuesday. And his guardianship hearing will be 05/10/2024. PDMP PDMP Reviewed: Not Reviewed Involuntary Hold Information 2 Hold Status: Legal Status: 96 Hour Hold and Pursuing Guardianship Date/Time Hold Expires: 05/03/24 @ 13:20 96 Hour Hold: 96 Hour Involuntary Admission: Yes Other Hold: Hold End Date: 03/15/24 Attestations NPU 2 Medical Necessity Statement*: Inpatient hospitalization is medically necessary and the clinically appropriate intervention at this time. We will monitor/initiate medications and make changes as indicated. Likely length of stay is 2-4 days. Move to 21-day hold given guardianship hearing in 5 days. Coding Level of Care Code Acute Code for [facility] Fwd Diagnoses Bipolar 2 disorder F31.81 Suicidal ideation R45.851 Opioid dependence with opioid-induced mood disorder F11.24 Substance use status: with opioid-induced mood disorder Attention deficit hyperactivity disorder (ADHD), predominantly inattentive type F90.0 Hyperactivity presence: present Attention deficit-hyperactivity disorder type: predominantly inattentive Anxiety and depression F41.9; F32.9 Methamphetamine use disorder, severe F15.20 Alcohol use disorder, severe, dependence F10.20
[2024-05-05] MEDS: ARIPiprazole 10 mg Tablet PO (20:29)
[2024-05-05 21:08] VITALS: BP 120/74; PULSE 78; RESP 16; TEMP 36.8; O2SAT 95
[2024-05-06 06:00] VITALS: BP 115/73; PULSE 68; RESP 18; TEMP 36.7; O2SAT 93; BMI 22.9
[2024-05-06] MEDS: methadone 10 mg Tablet 60 MG PO (08:07)
[2024-05-06 14:00] VITALS: BP 123/82; PULSE 70; RESP 16; TEMP 36.7; O2SAT 97
--- NOTE | 2024-05-06 15:46 | W.PM.NPUPNS ---
Subjective NPU Subjective: 29-year-old male with a history of methamphetamine abuse admitted with psychotic symptoms and continued cognitive decline. The patient had continued to report having no problems here whatsoever. He had reported no desire to consider inpatient substance abuse treatment despite efforts being made by family members to consider guardianship. He had continued to blame others for his hospitalization here. He appeared minimally engaged in treatment. He had reported that he had concerns about not being placed back on his ADHD medicines as they had helped him with staying on task. He had reported that his methamphetamine use had not played any role in his recent hospitalizations despite there being some support and documentation to believe that it had played a role in his multiple hospitalizations over the past 12 months. He denied any side effects from his current medications including methadone and Abilify. Mental Status Exam MSE Comments: This is a slender white male in hospital scrubs with limited grooming and eye contact. No abnormal movements except for psychomotor retardation. Cooperative with exam in mild distress. Speech was slightly decreased in rate and normal in productivity and volume. Mood described as okay. His affect appeared subdued. Thought process was superficial but organized. Thought content: Patient denied suicidal or homicidal ideation, there were no delusions reported or noted, he denied auditory or visual hallucinations. Attention and concentration appeared intact and memory was somewhat unreliable but likely intentionally so but none were formally tested. He is alert and oriented x 3. Insight is poor and judgment is limited and impulse control remains impaired. Vitals/I&O/Wt Last Vital Signs Temp 98.0 F 05/06/24 14:00 Pulse 70 05/06/24 14:00 Resp 16 05/06/24 14:00 BP 123/82 05/06/24 14:00 Pulse Ox 97 05/06/24 14:00 O2 Del Method Room Air 05/06/24 06:00 Weight last 48 hrs Weight 72.575 kg Data NPU 04/27/24 13:56 04/27/24 13:56 A&P Assessment and plan (1) Methamphetamine-induced mood disorder: (2) Bipolar 2 disorder: (3) Suicidal ideation: (4) Opioid dependence: Qualifiers: Substance use status: with opioid-induced mood disorder Qualified Code(s): F11.24 - Opioid dependence with opioid-induced mood disorder (5) ADD (attention deficit disorder): Qualifiers: Hyperactivity presence: present Attention deficit-hyperactivity disorder type: predominantly inattentive Qualified Code(s): F90.0 - Attention-deficit hyperactivity disorder, predominantly inattentive type (6) Anxiety and depression: (7) Suicidal ideation: (8) Methamphetamine use disorder, severe: (9) Alcohol use disorder, severe, dependence: (10) Suicidal ideation: Plan Patient is a 29-year-old white male who presents on his fourth hospitalization since September 2023 who has been previously admitted with suicidal ideation with a history of panic disorder, bipolar 2 disorder, ADHD and opioid dependence on methadone with previous history of being treated with Klonopin and Ritalin for reported ADHD. He presents on a 96-hour hold petitioned in part by his mother secondary to reported erratic behaviors with UDS once again positive for cannabis and amphetamines. 1. Encourage individual, group and milieu therapy. 2. Continue every 15 minute checks for safety. 3. Recommend sober living treatment at the highest level of care to which the patient is willing to commit. 4. We restarted medications and evaluate for safety given 96-hour hold. His methadone was given at 60 mg the last time he was here and he reports being on the same dose. He has endorsed an openness to take the long-acting injectable Abilify Maintena. Will order abilify long acting shot if patient is agreeable. 5. Obtain collateral information. 6. Filed for 21 day hold. The hearing will be on tommorow with his guardianship hearing scheduled for 05/10/2024. PDMP PDMP Reviewed: Not Reviewed Involuntary Hold Information Hold Status: Legal Status: 96 Hour Hold and Pursuing Guardianship Date/Time Hold Expires: 05/03/24 @ 13:20 96 Hour Hold: 96 Hour Involuntary Admission: Yes Other Hold: Hold End Date: 03/15/24 Attestations NPU Medical Necessity Statement*: Inpatient hospitalization is medically necessary and the clinically appropriate intervention at this time. We will monitor/initiate medications and make changes as indicated. Likely length of stay is 2-4 days. Move to 21-day hold given guardianship hearing in 5 days. Coding Level of Care Code Acute Code for [facility] Fwd Diagnoses Methamphetamine-induced mood disorder F15.94 Bipolar 2 disorder F31.81 Suicidal ideation R45.851 Opioid dependence with opioid-induced mood disorder F11.24 Substance use status: with opioid-induced mood disorder Attention deficit hyperactivity disorder (ADHD), predominantly inattentive type F90.0 Hyperactivity presence: present Attention deficit-hyperactivity disorder type: predominantly inattentive Anxiety and depression F41.9; F32.9 Methamphetamine use disorder, severe F15.20 Alcohol use disorder, severe, dependence F10.20
--- NOTE | 2024-05-06 16:59 | PC.NURSE ---
Pt. slept a lot today. Pt.'s visited with him and the two of them walked around in the page. No issues or problems.
[2024-05-06] MEDS: ARIPiprazole 10 mg Tablet PO (20:04)
[2024-05-06] MEDS: nicotine 4 mg lozenge MUCOUS MEM (20:05)
[2024-05-06 20:22] VITALS: BP 138/81; PULSE 78; RESP 16; TEMP 36.9; O2SAT 97
[2024-05-07 06:00] VITALS: BP 121/73; PULSE 57; RESP 16; O2SAT 94
[2024-05-07] MEDS: methadone 10 mg Tablet 60 MG PO (08:49)
[2024-05-07 14:00] VITALS: BP 129/89; PULSE 83; RESP 16; TEMP 37.5; O2SAT 93
--- NOTE | 2024-05-07 14:46 | P.NPUPN_ITS ---
Subjective NPU 2 Subjective: 29-year-old male with a history of metha mphetamine abuse admitted with psychotic symptoms and continued cognitive decline. Patient reported no side effects from his medications. He had denied any hallucinations at this time. He had reported that his had come to see him every day. He reported that his mother was going to produce guardianship and the patient was informed about the court hearing scheduled regarding guardianship on April. He had reported some complaints of fatigue. He had reported adequate sleep. He had continued to express no motivation to try inpatient substance abuse treatment despite significant adverse consequences leading to multiple hospitalizations and decline in his behavior and overall functioning over the last year. He was redirectable on the milieu. He reported no side effects from his medication regimen. Mental Status Exam 2 MSE Comments: This is a slender white male in hospital scrubs with limited grooming and eye contact. No abnormal movements except for psychomotor retardation. Cooperative with exam in mild distress. Speech was slightly decreased in rate and normal in productivity and volume. Mood described as allright. His affect appeared subdued. Thought process was linear and organized. Thought content: Patient denied suicidal or homicidal ideation, there were no delusions reported or noted, he denied auditory or visual hallucinations. Attention and concentration appeared intact and memory was somewhat unreliable but likely intentionally so but none were formally tested. He is alert and oriented x 3. Insight is poor and judgment is limited and impulse control remains impaired. Vitals/I&O/Wt Last Vital Signs Temp 99.5 F 05/07/24 14:00 Pulse 83 05/07/24 14:00 Resp 16 05/07/24 14:00 BP 129/89 05/07/24 14:00 Pulse Ox 93 05/07/24 14:00 O2 Del Method Room Air 05/07/24 14:00 Weight last 48 hrs Weight 72.575 kg Data NPU 04/27/24 13:56 04/27/24 13:56 A&P Assessment and plan (1) Methamphetamine-induced mood disorder: (2) Bipolar 2 disorder: (3) Suicidal ideation: (4) Opioid dependence: Qualifiers: Substance use status: with opioid-induced mood disorder Qualified Code(s): F11.24 - Opioid dependence with opioid-induced mood disorder (5) ADD (attention deficit disorder): Qualifiers: Hyperactivity presence: present Attention deficit-hyperactivity disorder type: predominantly inattentive Qualified Code(s): 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, predominantly inattentive type (6) Anxiety and depression: (7) Suicidal ideation: (8) Methamphetamine use disorder, severe: (9) Alcohol use disorder, severe, dependence: (10) Suicidal ideation: Plan Patient is a 29-year-old white male who presents on his fourth hospitalization since September 2023 who has been previously admitted with suicidal ideation with a history of panic disorder, bipolar 2 disorder, ADHD and opioid dependence on methadone with previous history of being treated with Klonopin and Ritalin for reported ADHD. He presents on a 96-hour hold petitioned in part by his mother secondary to reported erratic behaviors with UDS once again positive for cannabis and amphetamines. 1. Encourage individual, group and milieu therapy. 2. Continue every 15 minute checks for safety. 3. Recommend sober living treatment at the highest level of care to which the patient is willing to commit. 4. We restarted medications and evaluate for safety given 96-hour hold. His methadone was given at 60 mg the last time he was here and he reports being on the same dose. He has endorsed an openness to take the long-acting injectable Abilify Maintena. Will order abilify long acting shot if patient is agreeable. 5. Obtain collateral information. 6. 21 day hearing today. Patient is currently homeless. His guardianship hearing scheduled for 05/10/2024. PDMP PDMP Reviewed: Not Reviewed Involuntary Hold Information 2 Hold Status: Legal Status: 96 Hour Hold and Pursuing Guardianship Date/Time Hold Expires: 05/03/24 @ 13:20 96 Hour Hold: 96 Hour Involuntary Admission: Yes Other Hold: Hold End Date: 03/15/24 Attestations NPU 2 Medical Necessity Statement*: Inpatient hospitalization is medically necessary and the clinically appropriate intervention at this time. We will monitor/initiate medications and make changes as indicated. Likely length of stay is 2-4 days. Move to 21-day hold given guardianship hearing in 3 days. Coding Level of Care Code Acute Code for [facility]w Diagnoses Methamphetamine-induced mood disorder F15.94 Bipolar 2 disorder F31.81 Suicidal ideation R45.851 Opioid dependence with opioid-induced mood disorder F11.24 Substance use status: with opioid-induced mood disorder Attention deficit hyperactivity disorder (ADHD), predominantly inattentive type F90.0 Hyperactivity presence: present Attention deficit-hyperactivity disorder type: predominantly inattentive Anxiety and depression F41.9; F32.9 Methamphetamine use disorder, severe F15.20 Alcohol use disorder, severe, dependence F10.20
--- NOTE | 2024-05-07 15:31 | PC.NURSE ---
off unit for [address]
--- NOTE | 2024-05-07 15:31 | PC.NURSE ---
off unit for [address]
--- NOTE | 2024-05-07 16:35 | PC.NURSE ---
return to unit from court
[2024-05-07] MEDS: ARIPiprazole 10 mg Tablet PO (19:18)
[2024-05-07] MEDS: nicotine 4 mg lozenge MUCOUS MEM (19:18)
[2024-05-07 20:05] VITALS: BP 116/71; PULSE 95; RESP 16; TEMP 36.8; O2SAT 96
[2024-05-08 06:00] VITALS: BP 113/68; PULSE 76; RESP 18; TEMP 36.7; O2SAT 95
[2024-05-08 07:57] VITALS: RESP 16
[2024-05-08] MEDS: nicotine 4 mg lozenge MUCOUS MEM (07:57)
[2024-05-08] MEDS: methadone 10 mg Tablet 60 MG PO (07:57)
--- NOTE | 2024-05-08 13:13 | P.NPUPN_ITS ---
Subjective NPU 2 Subjective: 29-year-old male with a history of metha mphetamine abuse admitted with psychotic symptoms and continued cognitive decline. Patient had reported struggles with concentration. He had continued to attend groups. He had reported some frustrations with the possibility of requiring guardianship. He had reported some difficulties with falling asleep. He had reported no cravings for amphetamines or alcohol at this time. He had reported methadone had been helpful for managing opiate cravings. He had continued to report struggles with staying on task. He had endorsed frequent boredom. He had reported a history of use of stimulants for several years to target ADHD symptoms. Mental Status Exam 2 MSE Comments: This is a slender white male in hospital scrubs with limited grooming and eye contact. No abnormal movements except for psychomotor retardation. He was cooperative with exam in mild distress. Speech was slightly decreased in rate and normal in productivity and volume. Mood described as okay. His affect remained subdued. Thought process was linear and organized. Thought content: Patient denied suicidal or homicidal ideation, there were no delusions reported or noted, he denied auditory or visual hallucinations. Attention and concentration appeared intact and memory was somewhat unreliable but likely intentionally so but none were formally tested. He is alert and oriented x 3. Insight is poor and judgment is limited and impulse control remains impaired. Vitals/I&O/Wt Last Vital Signs Temp 98.0 F 05/08/24 06:00 Pulse 76 05/08/24 06:00 Resp 16 05/08/24 07:57 BP 113/68 05/08/24 06:00 Pulse Ox 95 05/08/24 06:00 O2 Del Method Room Air 05/08/24 06:00 Data NPU 04/27/24 13:56 04/27/24 13:56 A&P Assessment and plan (1) Methamphetamine-induced mood disorder: (2) Bipolar 2 disorder: (3) Suicidal ideation: (4) Opioid dependence: Qualifiers: Substance use status: with opioid-induced mood disorder Qualified Code(s): F11.24 - Opioid dependence with opioid-induced mood disorder (5) ADD (attention deficit disorder): Qualifiers: Hyperactivity presence: present Attention deficit-hyperactivity disorder type: predominantly inattentive Qualified Code(s): 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, predominantly inattentive type (6) Anxiety and depression: (7) Suicidal ideation: (8) Methamphetamine use disorder, severe: (9) Alcohol use disorder, severe, dependence: (10) Suicidal ideation: Plan Patient is a 29-year-old white male who presents on his fourth hospitalization since September 2023 who has been previously admitted with suicidal ideation with a history of panic disorder, bipolar 2 disorder, ADHD and opioid dependence on methadone with previous history of being treated with Klonopin and Ritalin for reported ADHD. He presents on a 96-hour hold petitioned in part by his mother secondary to reported erratic behaviors with UDS once again positive for cannabis and amphetamines. 1. Encourage individual, group and milieu therapy. 2. Continue every 15 minute checks for safety. 3. Recommend sober living treatment at the highest level of care to which the patient is willing to commit. 4. We restarted medications and evaluate for safety given 96-hour hold. His methadone was given at 60 mg the last time he was here and he reports being on the same dose. Continue Abilify 10mg daily. 5. Obtain collateral information. 6. Patient on 21 day hold. Patient is currently homeless. His guardianship hearing scheduled for 05/10/2024. PDMP PDMP Reviewed: Not Reviewed Involuntary Hold Information 2 Hold Status: Legal Status: 96 Hour Hold and Pursuing Guardianship Date/Time Hold Expires: 05/28/24 96 Hour Hold: 96 Hour Involuntary Admission: Yes Other Hold: Hold End Date: 03/15/24 Attestations NPU 2 Medical Necessity Statement*: Inpatient hospitalization is medically necessary and the clinically appropriate intervention at this time. We will monitor/initiate medications and make changes as indicated. Likely length of stay is 2-4 days. Patient now on 21- day hold given guardianship hearing in 3 days. Coding Level of Care Code Acute Code for [facility] Fwd Diagnoses Methamphetamine-induced mood disorder F15.94 Bipolar 2 disorder F31.81 Suicidal ideation R45.851 Opioid dependence with opioid-induced mood disorder F11.24 Substance use status: with opioid-induced mood disorder Attention deficit hyperactivity disorder (ADHD), predominantly inattentive type F90.0 Hyperactivity presence: present Attention deficit-hyperactivity disorder type: predominantly inattentive Anxiety and depression F41.9; F32.9 Methamphetamine use disorder, severe F15.20 Alcohol use disorder, severe, dependence F10.20
[2024-05-08 14:00] VITALS: BP 136/88; PULSE 76; RESP 16; TEMP 36.7; O2SAT 98
[2024-05-08 19:56] VITALS: BP 129/72; PULSE 74; RESP 16; TEMP 36.9; O2SAT 95
[2024-05-08] MEDS: ARIPiprazole 10 mg Tablet PO (20:33)
[2024-05-09 06:00] VITALS: BP 104/64; PULSE 65; RESP 18; TEMP 37; O2SAT 98
[2024-05-09 08:21] VITALS: RESP 16
[2024-05-09] MEDS: buPROPion XL (24 HR) 150 mg Tablet PO (08:21)
[2024-05-09] MEDS: methadone 10 mg Tablet 60 MG PO (08:21)
[2024-05-09] MEDS: nicotine 4 mg lozenge MUCOUS MEM ×3 (08:21→15:40)
[2024-05-09] MEDS: hyDROXYzine 25 mg Capsule 50 MG PO (10:32)
[2024-05-09 14:00] VITALS: BP 131/78; PULSE 91; RESP 17; TEMP 36.9; O2SAT 98
--- NOTE | 2024-05-09 14:46 | W.PM.NPUPNS ---
Subjective NPU Subjective: 29-year-old male with a history of methamphetamine abuse admitted with psychotic symptom, depression and continued cognitive decline. The patient had reported some depression. He had remained steadfast in believing that he continued to require methadone as he had reported a history of opiate misuse. He reported no cravings for opiates currently. He reported no cravings for methamphetamine either. He had reported no side effects from the Wellbutrin that was initiated. He continued to report difficulties with concentration and reported being easily distracted. He had been able to attend groups. He had denied any current paranoia. Mental Status Exam MSE Comments: This is a slender white male in hospital scrubs with limited grooming and eye contact. No abnormal movements except for psychomotor retardation. He was cooperative with exam in mild distress. Speech was slightly decreased in rate and normal in productivity and volume. Mood described as okay. His affect was restricted. Thought process was linear and organized. Thought content: Patient denied suicidal or homicidal ideation, there were no delusions reported or noted, he denied auditory or visual hallucinations. Attention and concentration appeared intact and memory was somewhat unreliable but likely intentionally so but none were formally tested. He is alert and oriented x 3. Insight is poor and judgment is limited and impulse control remains impaired. Vitals/I&O/Wt Last Vital Signs Temp 98.6 F 05/09/24 06:00 Pulse 65 05/09/24 06:00 Resp 16 05/09/24 08:21 BP 104/64 05/09/24 06:00 Pulse Ox 98 05/09/24 06:00 O2 Del Method Room Air 05/09/24 06:00 05/08/24 05/09/24 05/09/24 22:59 06:59 14:59 Intake Total 600 / 600 Balance 600 / 600 Data NPU 04/27/24 13:56 04/27/24 13:56 A&P Assessment and plan (1) Methamphetamine-induced mood disorder: (2) Bipolar 2 disorder: (3) Suicidal ideation: (4) Opioid dependence: Qualifiers: Substance use status: with opioid-induced mood disorder Qualified Code(s): F11.24 - Opioid dependence with opioid-induced mood disorder (5) ADD (attention deficit disorder): Qualifiers: Hyperactivity presence: present Attention deficit-hyperactivity disorder type: predominantly inattentive Qualified Code(s): F90.0 - Attention-deficit hyperactivity disorder, predominantly inattentive type (6) Anxiety and depression: (7) Suicidal ideation: (8) Methamphetamine use disorder, severe: (9) Alcohol use disorder, severe, dependence: (10) Suicidal ideation: Plan Patient is a 29-year-old white male who presents on his fourth hospitalization since September 2023 who has been previously admitted with suicidal ideation with a history of panic disorder, bipolar 2 disorder, ADHD and opioid dependence on methadone with previous history of being treated with Klonopin and Ritalin for reported ADHD. He presents on a 96-hour hold petitioned in part by his mother secondary to reported erratic behaviors with UDS once again positive for cannabis and amphetamines. 1. Encourage individual, group and milieu therapy. 2. Continue every 15 minute checks for safety. 3. Recommend sober living treatment at the highest level of care to which the patient is willing to commit. 4. We restarted medications and evaluate for safety given 96-hour hold. His methadone was given at 60 mg the last time he was here and he reports being on the same dose. Continue Abilify 10mg daily. 5. Obtain collateral information. 6. Patient on 21 day hold. His guardianship hearing scheduled for 05/10/2024. Patient would benefit from inpatient treatment at [facility] inpatient facility. PDMP PDMP Reviewed: Not Reviewed Involuntary Hold Information Hold Status: Legal Status: 21 Day Hold and Pursuing Guardianship Date/Time Hold Expires: 05/28/24 96 Hour Hold: 96 Hour Involuntary Admission: Yes Other Hold: Hold End Date: 03/15/24 Attestations NPU Medical Necessity Statement*: Inpatient hospitalization is medically necessary and the clinically appropriate intervention at this time. We will monitor/initiate medications and make changes as indicated. Likely length of stay is 1-2 days. Coding Level of Care Code Acute Code for [facility] Fwd Diagnoses Methamphetamine-induced mood disorder F15.94 Bipolar 2 disorder F31.81 Suicidal ideation R45.851 Opioid dependence with opioid-induced mood disorder F11.24 Substance use status: with opioid-induced mood disorder Attention deficit hyperactivity disorder (ADHD), predominantly inattentive type F90.0 Hyperactivity presence: present Attention deficit-hyperactivity disorder type: predominantly inattentive Anxiety and depression F41.9; F32.9 Methamphetamine use disorder, severe F15.20 Alcohol use disorder, severe, dependence F10.20
[2024-05-09] MEDS: ARIPiprazole 10 mg Tablet PO (19:56)
[2024-05-09 20:00] VITALS: BP 107/66; PULSE 84; RESP 16; TEMP 36.7; O2SAT 97
[2024-05-10 06:00] VITALS: BP 92/61; PULSE 76; RESP 16; TEMP 37.1; O2SAT 96
[2024-05-10 07:55] VITALS: RESP 18
[2024-05-10] MEDS: buPROPion XL (24 HR) 150 mg Tablet PO (07:55)
[2024-05-10] MEDS: methadone 10 mg Tablet 60 MG PO (07:55)
[2024-05-10] MEDS: nicotine 4 mg lozenge MUCOUS MEM ×2 (07:56→11:47)
[2024-05-10 12:38] VITALS: BP 92/61; PULSE 76; RESP 16; TEMP 37.1; O2SAT 96
--- NOTE | 2024-05-10 13:48 | P.NPUDS_ITS ---
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 within normal limits and revealed no new acute processes.? At the time of discharge, lethality was denied and psychosis was resolving.? Mood and anxiety were well managed.? The patient endorsed a plan to avoid all drugs of abuse and follow up with the aftercare recommendations of the treatment team.? The patient was evaluated and deemed to be absent credible lethality and had achieved the maximum benefit from an inpatient hospitalization, and so was discharged. ?The patient was restarted on his medications including Abilify 10 mg daily and methadone as previously prescribed. Wellbutrin was added at 150 mg daily to target depression. Patient was placed on a 21-day hold and eventually a guardianship hearing took place at which time his mother was awarded guardianship of the patient. He had become agreeable to considering inpatient's substance abuse treatment and was scheduled to be excepted to a facility in [facility] in the next few weeks. Involuntary Hold Information Hold Status: Legal Status: 21 Day Hold and Pursuing Guardianship Date/Time Hold Expires: 05/28/24 96 Hour Hold: 96 Hour Involuntary Admission: Yes Other Hold: Hold End Date: 03/15/24 Mental Status Exam MSE Comments: This is a slender white male in hospital scrubs with limited grooming and eye contact. No abnormal movements except for psychomotor retardation. He was cooperative with exam in mild distress. Speech was slightly decreased in rate and normal in productivity and volume. Mood described as ok. His affect remained somewhat constricted. Thought process was linear and organized. Thought content: Patient denied suicidal or homicidal ideation, there were no delusions reported or noted, he denied auditory or visual hallucinations. Attention and concentration appeared improved. He is alert and oriented x 3. Insight was improving and judgment was improving. His impulse control remained poor. Discharge Data Studies Completed and Pending: Laboratory Results WBC 7.92 10^3/uL (3.2 9-11.43) 04/27/24 13:56 RBC 4.87 10^6/uL (3.8 5-5.65) 04/27/24 13:56 Hgb 15.60 g/dL (11.27 -16.99) 04/27/24 13:56 Hct 46.7 % (37-53) 04/27/24 13:56 MCV 95.9 fl (82-101) 04/27/24 13:56 MCH 32.0 pg (27-33) 04/27/24 13:56 MCHC 33.4 g/dL (30-55) 04/27/24 13:56 RDW 13.0 % (12.1-15.1 ) 04/27/24 13:56 Plt Count 158 10^3/cmm (157 -399) 04/27/24 13:56 MPV 11.5 fL (7.4-10.4 ) H 04/27/24 13:56 Neut % (Auto) 77.9 % 04/27/24 13:56 Lymph % (Auto) 13.3 % 04/27/24 13:56 [place] % (Auto) 6.7 % 04/27/24 13:56 Eos % (Auto) 1.4 % 04/27/24 13:56 Baso % (Auto) 0.4 % 04/27/24 13:56 Neut # (Auto) 6.18 10^3/uL (1.8 -7.7) 04/27/24 13:56 Lymph # (Auto) 1.1 10^3/uL (0.8- 4.8) 04/27/24 13:56 [place] # (Auto) 0.5 10^3/uL (0.2- 0.9) 04/27/24 13:56 Eos # (Auto) 0.1 10^3/uL (0.0- 0.8) 04/27/24 13:56 Baso # (Auto) 0.0 10^3/uL (0.0- 0.1) 04/27/24 13:56 Nucleated RBC % (a uto) 0 % 04/27/24 13:56 Nucleated RBCs # 0.0 /100WBC 04/27/24 13:56 Sodium 139 mmol/L (136-1 45) 04/27/24 13:56 Potassium 3.8 mmol/L (3.5-5 .1) 04/27/24 13:56 Chloride 103 mmol/L (98-10 7) 04/27/24 13:56 Carbon Dioxide 24 mmol/L (22-29) 04/27/24 13:56 Anion Gap 15.8 (5-19) 04/27/24 13:56 BUN 9 mg/dL (6-20) 04/27/24 13:56 Creatinine 0.7 mg/dL (0.7-1. 2) 04/27/24 13:56 GFR Calculation 133.3 mL/min (90- 130) H 04/27/24 13:56 Glucose 108 mg/dL (65-115 ) 04/27/24 13:56 Calculated Osmolal ity 287 mOsm/kg (285- 295) 04/27/24 13:56 Calcium 9.2 mg/dL (8.5-10 .5) 04/27/24 13:56 Total Bilirubin 0.4 mg/dL (0.15-1 .2) 04/27/24 13:56 AST 20 U/L (0-40) 04/27/24 13:56 ALT 17 U/L (0-41) 04/27/24 13:56 Alkaline Phosphata se 112 U/L (40-130) 04/27/24 13:56 Total Protein 6.7 g/dL (6.6-8.7 ) 04/27/24 13:56 Albumin 4.0 g/dL (3.5-5.2 ) 04/27/24 13:56 Globulin 2.7 g/dL (1.3-4.6 ) 04/27/24 13:56 Salicylates < 0.3 mg/dL (3-10 ) L 04/27/24 13:56 Urine Opiates Scre en Negative ng/mL (N egative) 04/27/24 16:03 Acetaminophen < 5.0 ug/mL (10-3 0) L 04/27/24 13:56 Ur Barbiturates Sc reen Negative ng/mL (N egative) 04/27/24 16:03 Ur Phencyclidine S crn Negative ng/mL (N egative) 04/27/24 16:03 Ur Amphetamines Sc reen Positive ng/mL (N egative) H 04/27/24 16:03 U Benzodiazepines Scrn Negative ng/mL (N egative) 04/27/24 16:03 Urine Cocaine Scre en Negative ng/mL (N egative) 04/27/24 16:03 U Marijuana (THC) Screen Positive ng/mL (N egative) H 04/27/24 16:03 Ethyl Alcohol < 10 mg/dL (0-10) 04/27/24 13:56 Vitals: Last Vital Signs Temp 98.7 F 05/10/24 12:38 Pulse 76 05/10/24 12:38 Resp 16 05/10/24 12:38 BP 92/61 05/10/24 12:38 Pulse Ox 96 05/10/24 12:38 O2 Del Method Room Air 05/10/24 06:00 Discharge Plan Discharge Patient Disposition: Home Condition: Stable Prescriptions: New bupropion HCl 150 mg Tablet Extended Release 24 Hr 150 mg PO DAILY 30 Days Qty: 30 1RF Continued methadone 10 mg Tablet 60 mg PO DAILY Qty: 180 0RF aripiprazole 10 mg Tablet 10 mg PO BEDTIME 30 Days Qty: 30 1RF Discharge Orders: Discharge Order (Routine); Ordered 05/10/24 Ordered By: Ronnie Pillai Referrals: [facility] [Other] - 05/15/24 8:15 am (Assessment apt. ) [facility] [Other] - 05/11/24 (6:00 AM TO 11:00 AM.) [email or web address] [Other] - 05/10/24 Discharge Diet: Usual diet Discharge Activity: Resume usual activity Patient Instructions: Opioid Safety Patient's Health Concerns: Patient strongly encouraged to remain on methadone for treatment of opioid dependence. 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
== END 2024-05-10 13:00 | disposition home or self-care (01) | DRG 885 ==
LOC: ER 13:54 → NP 15:15
PROVIDERS: Admitting Provider Psychiatry & Neurology Psychiatry; Emergency Provider Physician Assistant; Visit Provider Psychiatry & Neurology Psychiatry
DX: F31.81 Bipolar II disorder (principal); R45.851 Suicidal ideations; F15.20 Other stimulant dependence, uncomplicated; F11.24 Opioid dependence with opioid-induced mood disorder; F90.0 Attention-deficit hyperactivity disorder, predominantly inattentive type; F41.9 Anxiety disorder, unspecified; F10.20 Alcohol dependence, uncomplicated; F17.290 Nicotine dependence, other tobacco product, uncomplicated
CPT/HCPCS: 36415; 80053; 80306; 80307; 85025; 97150; 97165; 99285; J9999

== ENCOUNTER 2024-05-20 17:51 | Inpatient (IN) | payer BC, MEDICAID, SELFPAY ==
[2024-05-20 17:55] VITALS: BP 136/93; PULSE 66; RESP 15; TEMP 36.8; O2SAT 97; BMI 24.3
--- NOTE | 2024-05-20 18:13 | W.ED.PSYCHS ---
HPI - Psych General: Chief Complaint: Psychiatric Symptoms Stated Complaint: drunk, possible 96 Time Seen by Provider: 05/20/24 18:04 History of Present Illness: 29-year-old male gentleman known to the neuropsychiatric unit at this facility. He presents with law enforcement, and his guardian mother following an episode of intoxication today, and lying down in the middle of the road. The patient reported this to his and was found by her as such. He was recently admitted to the [facility], and discharged to an outpatient rehabilitation center for substance abuse, mainly alcohol and methamphetamine. He reportedly left that facility twice a day, became intoxicated, and the above happened. Patient's guardian mother is also interviewed. She requests that because of his earlier actions, he be admitted for psychiatric evaluation. Related Data Previous Rx's ?Medication ?Instructions ?Recorded aripiprazole 10 mg tablet 10 mg PO BEDTIME 30 days #30 tabs 05/10/24 bupropion HCl 150 mg 24 hr tablet, 150 mg PO DAILY 30 days #30 tabs 05/10/24 extended release methadone 10 mg tablet 60 mg (6 x 10 mg) PO DAILY #180 05/10/24 tabs Allergies Allergy/AdvReac Type Severity Reaction Status Date / Time Penicillins Allergy Intermediate Rash Verified 05/15/24 10:08 [facility] Medical History (Updated 05/21/24 @ 02:31 by Ramon Saul DO) Moderate tobacco use disorder Bipolar 2 disorder ADD (attention deficit disorder) Diagnosed at age of 8 yr old Methadone use Opioid use disorder Alcohol use disorder Involuntary commitment Psychiatric care Constipation Somnolence, daytime Psoriasis-like skin disease GERD (gastroesophageal reflux disease) Opioid dependence Suicidal ideation Irritable bowel syndrome (IBS) Problems with constipation in November and December 2021 and episodes of diarrhea and March and April 2022. Restless leg syndrome Chronic nausea Allergic rhinitis due to allergen Peripheral neuropathy History of juvenile rheumatoid arthritis Ulcerative colitis Anxiety and depression Family History Other CAD (coronary artery disease) Cancer Hypertension Stroke Denies family history of Rheumatoid arthritis Diabetes Lupus Hyperlipidemia Chronic kidney disease (CKD) Social History (Updated 05/15/24 @ 10:41 by Javier Potter MD) Smoking and tobacco/nicotine status: current every day tobacco/nicotine user e-cigarettes E-Cigarette Details: vaporizer device and with nicotine E-cig/vape details: Refill(50 mg)/1 - 1.5 weeks. Quit status (tobacco/nicotine): has tried quititng Number of times tried to quit tobacco: 10 Second hand smoke exposure: No Alcohol intake: current Alcohol intake frequency: 0-2 Drinks per Day Alcohol type: beer and hard liquor Substance/Drug Use: current Substance/Drug use frequency: daily Other substance/drug use details: last use 04/17/24 Caregiver/support person: No Lives independently: Yes Household members: spouse Marital status: Number of children: 1 service: No Do you think of yourself as: Straight/Heterosexual Current gender identity: Male Physical Exam Const: COMMON NORMALS: no acute distress EXAM LIMITATIONS: other limitations (Intoxication, mild) GENERAL APPEARANCE: cooperative; not ill appearing and not frail appearing HENMT: COMMON NORMALS: normocephalic, atraumatic and Normal external nose present HEAD & SCALP: normocephalic and atraumatic FACE & SINUS: normal facial exam and face symmetric NOSE: Normal external nose present Eye: COMMON NORMALS: Equal, round and reactive pupils present and EOMs intact bilaterally PUPIL: Yes Equal, round and reactive pupils present Neck/C-Spine: GENERAL: Yes trachea midline Chest: CHEST: Yes Symmetrical chest wall rise Resp: COMMON NORMALS: normal respiratory effort, No retractions, No use of accessory muscles and clear to auscultation bilaterally AUSCULTATION: clear to auscultation bilaterally Cardio: COMMON NORMALS: regular rate and regular rhythm RATE: regular rate RHYTHM: regular rhythm GI: COMMON NORMALS: Normal to inspection, nondistended, normoactive bowel sounds present Extremity: COMMON NORMALS: no pedal edema Neuro: OFELIA COMA SCALE: document GCS findings Ofelia coma scale eye opening: Spontaneous Ofelia coma scale verbal response: Orientated Merritt coma scale motor response: Obey commands Merritt coma scale total score: 15 SENSORY EXAM: Yes extremities (intact) Psych: COMMON NORMALS: speech normal SPEECH: Yes normal speech Skin: COMMON NORMALS: no rashes or lesions noted GENERAL SKIN EXAM: no rashes or lesions noted Course Vital Signs: Vital signs: Vital Signs Temperature 98.3 F 05/21/24 02:03 Pulse Rate 99 05/21/24 02:03 Respiratory Rate 16 05/21/24 02:03 Blood Pressure 89/52 05/21/24 02:03 Pulse Oximetry 95 05/21/24 02:03 Oxygen Delivery Me thod Room Air 05/21/24 02:03 MDM - Psych Medical Decision Making Patient is only slightly intoxicated at this point. Medically he is quite stable. Spoke with psychiatry. They are willing to admit the patient. Laboratory shows a platelet count of 110. He has an alcohol level of 158. His other laboratory is not remarkable. Since he has a guardian, actually to his mother and , with paperwork, 96-hour hold paperwork is not necessary, but his mother did write an affidavit to the above facts. Lab Data 05/20/24 18:05 05/20/24 18:05 Laboratory Results WBC 5.89 10^3/uL (3.29-11.43) 05/20/24 18:05 RBC 4.92 10^6/uL (3.85-5.65) 05/20/24 18:05 Hgb 15.70 g/dL (11.27-16.99) 05/20/24 18:05 Hct 46.2 % (37-53) 05/20/24 18:05 MCV 93.9 fl (82-101) 05/20/24 18:05 MCH 31.9 pg (27-33) 05/20/24 18:05 MCHC 34.0 g/dL (30-55) 05/20/24 18:05 RDW 11.8 % (12.1-15.1) L 05/20/24 18:05 Plt Count 110 10^3/cmm (157-399) L 05/20/24 18:05 MPV 12.4 fL (7.4-10.4) H 05/20/24 18:05 Neut % (Auto) 56.3 % 05/20/24 18:05 Lymph % (Auto) 32.3 % 05/20/24 18:05 [place] % (Auto) 8.1 % 05/20/24 18:05 Eos % (Auto) 2.4 % 05/20/24 18:05 Baso % (Auto) 0.7 % 05/20/24 18:05 Neut # (Auto) 3.32 10^3/uL (1.8-7.7) 05/20/24 18:05 Lymph # (Auto) 1.9 10^3/uL (0.8-4.8) 05/20/24 18:05 [place] # (Auto) 0.5 10^3/uL (0.2-0.9) 05/20/24 18:05 Eos # (Auto) 0.1 10^3/uL (0.0-0.8) 05/20/24 18:05 Baso # (Auto) 0.0 10^3/uL (0.0-0.1) 05/20/24 18:05 Nucleated RBC % (auto) 0 % 05/20/24 18:05 Nucleated RBCs # 0.0 /100WBC 05/20/24 18:05 Sodium 143 mmol/L (136-145) 05/20/24 18:05 Potassium 3.7 mmol/L (3.5-5.1) 05/20/24 18:05 Chloride 104 mmol/L (98-107) 05/20/24 18:05 Carbon Dioxide 25 mmol/L (22-29) 05/20/24 18:05 Anion Gap 17.7 (5-19) 05/20/24 18:05 BUN 14 mg/dL (6-20) 05/20/24 18:05 Creatinine 1.1 mg/dL (0.7-1.2) 05/20/24 18:05 GFR Calculation 79.1 mL/min (90-130) L 05/20/24 18:05 Glucose 84 mg/dL (65-115) 05/20/24 18:05 Calculated Osmolality 296 mOsm/kg (285-295) H 05/20/24 18:05 Calcium 9.5 mg/dL (8.5-10.5) 05/20/24 18:05 Total Bilirubin 0.2 mg/dL (0.15-1.2) 05/20/24 18:05 AST 24 U/L (0-40) 05/20/24 18:05 ALT 18 U/L (0-41) 05/20/24 18:05 Alkaline Phosphatase 86 U/L (40-130) 05/20/24 18:05 Total Protein 7.2 g/dL (6.6-8.7) 05/20/24 18:05 Albumin 4.6 g/dL (3.5-5.2) 05/20/24 18:05 Globulin 2.6 g/dL (1.3-4.6) 05/20/24 18:05 Urine Color Yellow (Yellow) 05/20/24 18:05 Urine Appearance Clear (CLEAR) 05/20/24 18:05 Urine pH 5.5 (5-7) 05/20/24 18:05 Ur Specific [place] 1.009 (1.005-1.030) 05/20/24 18:05 Urine Protein Negative (Negative) 05/20/24 18:05 Urine Glucose (UA) Negative (Normal) 05/20/24 18:05 Urine Ketones Negative (Negative) 05/20/24 18:05 Urine Blood Negative (Negative) 05/20/24 18:05 Urine Nitrate Negative (Negative) 05/20/24 18:05 Urine Bilirubin Negative (Negative) 05/20/24 18:05 Urine Urobilinogen 0.2 mg/dL (Negative) 05/20/24 18:05 Ur Leukocyte Esterase Negative (Negative) 05/20/24 18:05 Urine RBC 0-2 /hpf (0-2) 05/20/24 18:05 Urine WBC 0-5 /hpf (0-5) 05/20/24 18:05 Ur Squamous Epith Cells 0-5 /hpf (0-5) 05/20/24 18:05 Amorphous Sediment Not Reportable 05/20/24 18:05 Urine Bacteria None seen /hpf (NONE) 05/20/24 18:05 Hyaline Casts 0-4 /lpf H 05/20/24 18:05 Salicylates < 0.3 mg/dL (3-10) L 05/20/24 18:05 Urine Opiates Screen Negative ng/mL (Negative) 05/20/24 18:05 Acetaminophen < 5.0 ug/mL (10-30) L 05/20/24 18:05 Ur Barbiturates Screen Negative ng/mL (Negative) 05/20/24 18:05 Ur Phencyclidine Scrn Negative ng/mL (Negative) 05/20/24 18:05 Ur Amphetamines Screen Negative ng/mL (Negative) 05/20/24 18:05 U Benzodiazepines Scrn Negative ng/mL (Negative) 05/20/24 18:05 Urine Cocaine Screen Negative ng/mL (Negative) 05/20/24 18:05 U Marijuana (THC) Screen Negative ng/mL (Negative) 05/20/24 18:05 Ethyl Alcohol 158 mg/dL (0-10) H 05/20/24 18:05 No radiology studies performed this visit Discharge Plan Discharge Patient Disposition: Admitted As Inpatient Admit Provider: González Szymanski Clinical Impression: Alcohol use disorder, Suicide attempt Condition: Stable Coding Level of Care Code ED Mechanical Systems Control Engineer for Kilo Lange
[2024-05-20 18:48] LABS: Basophils % 0.7 %; Eosinophils # 0.1 10^3/uL (0.0-0.8); Eosinophils % 2.4 %; Hematocrit 46.2 % (37-53); Lymphocytes # 1.9 10^3/uL (0.8-4.8); Lymphocytes % 32.3 %; Mean Corpuscular Hemoglobin 31.9 pg (27-33); Mean Corpuscular Volume 93.9 fl (82-101); Mean Platelet Volume 12.4 fL (7.4-10.4); Monocytes # 0.5 10^3/uL (0.2-0.9); Monocytes % 8.1 %; Neutrophils # 3.32 10^3/uL (1.8-7.7); Neutrophils % 56.3 %; Nucleated Red Blood Cells % 0 %; Platelet Count 110 10^3/cmm (157-399); Red Blood Count 4.92 10^6/uL (3.85-5.65); Red Cell Distribution Width 11.8 % (12.1-15.1); White Blood Count 5.89 10^3/uL (3.29-11.43)
--- NOTE | 2024-05-20 18:55 | ECG_ITS ---
[facility]: 2024-[facility]20 Pat Name: Aj York Department: Room: 154 Gender: Male Cash Analyst: : 1995 Requested By: Ed Richardson Order Number: [id number] Mounika MD: Joseph Carpio M.D. Measurements Intervals Reeder Rate: 89 P: 43 WI: 139 QRS: 51 QRSD: 90 T: 53 QT: 354 QTc: 432 Interpretive Statements SINUS RHYTHM POSSIBLE RIGHT VENTRICULAR CONDUCTION DELAY [RSR (QR) IN V1/V2] NONSPECIFIC T-WAVE ABNORMALITY INTERPRETATION BASED ON A DEFAULT AGE OF 40 YEARS Compared to ECG 01/24/2024 00:58:37 T-wave abnormality now present Sinus arrhythmia no longer present Electronically Signed On 05-21-2024 21:12:03 CDT by Joseph Carpio M.D. [id number]
[2024-05-20 18:56] LABS: Bilirubin Urine Negative (Negative); Blood Urine Negative (Negative); Glucose Urine UA Negative (Normal); Ketones Urine Negative (Negative); Leukocyte Esterase Urine Negative (Negative); Nitrate Urine Negative (Negative); Protein Urine Negative (Negative); Specific Gravity, Urine 1.009 (1.005-1.030); Urine Appearance Clear (CLEAR); Urine Color Yellow (Yellow); Urobilinogen Urine 0.2 mg/dL (Negative); pH Urine 5.5 (5-7)
[2024-05-20 18:58] LABS: Add Urine Microscopic? YES; Bacteria Urine None Seen /hpf; Hyaline Casts Urine 0-4 /lpf; RBC Urine 0-2 /hpf (0-2); Squamous Epithelial Cell Urine 0-5 /hpf (0-5); WBC Urine 0-5 /hpf (0-5)
[2024-05-20 19:03] LABS: Amphetamines Screen Urine Negative (Negative); Barbiturates Screen Urine Negative (Negative); Benzodiazepines Screen Urine Negative (Negative); Cocaine Screen Urine Negative (Negative); Opiate Screen Urine Negative (Negative); PCP Screen Urine Negative (Negative); THC Screen Urine Negative (Negative)
[2024-05-20 19:05] LABS: Alanine Aminotransferase 18 U/L (0-41); Albumin Level 4.6 g/dL (3.5-5.2); Alcohol Level 158 mg/dL (0-10); Alkaline Phosphatase 86 U/L (40-130); Blood Urea Nitrogen 14 mg/dL (6-20); Calcium 9.5 mg/dL (8.5-10.5); Carbon Dioxide 25 mmol/L (22-29); Chloride 104 mmol/L (98-107); Globulin 2.6 g/dL (1.3-4.6); Glomerular Filtration Rate 79.1 mL/min (90-130); Glucose 84 mg/dL (65-115); Osmolality Calculated 296 mOsm/kg (285-295); Sodium 143 mmol/L (136-145); Total Bilirubin 0.2 mg/dL (0.15-1.2); Total Protein 7.2 g/dL (6.6-8.7)
[2024-05-20 19:06] LABS: Acetaminophen < 5.0 ug/mL (10-30); Salicylate < 0.3 mg/dL (3-10)
[2024-05-20 19:07] LABS: Anion Gap 17.7 (5-19); Aspartate Amino Transferase 24 U/L (0-40); Potassium 3.7 mmol/L (3.5-5.1)
[2024-05-20 21:32] VITALS: BP 128/85; PULSE 60; RESP 16; O2SAT 99
[2024-05-20 21:58] VITALS: BP 111/81; PULSE 90; RESP 18; TEMP 36.3; O2SAT 96
[2024-05-20 22:00] VITALS: BP 111/81; PULSE 90; RESP 18; TEMP 36.3; O2SAT 96
[2024-05-21] VITALS (7 sets, daily range): BP systolic 89–124; BP diastolic 52–93; PULSE 74–99; RESP 16–18; TEMP 36.4–36.9; O2SAT 95–98
[2024-05-21] MEDS: folic acid 1 mg Tablet PO (08:07)
[2024-05-21] MEDS: multivitamin therapeutic Tablet 1 TAB PO (08:07)
[2024-05-21] MEDS: thiamine 100 mg Tablet PO (08:07)
[2024-05-21] MEDS: buPROPion XL (24 HR) 150 mg Tablet PO (08:07)
--- NOTE | 2024-05-21 08:32 | PC.NURSE ---
This nurse talked with Jacy at [facility], who confirmed that patient is taking methadone 60mg daily. Patient received 60mg yesterday, per Jacy.
[2024-05-21] MEDS: methadone 10 mg Tablet 60 MG PO (08:53)
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
[2024-05-21] MEDS: ARIPiprazole 10 mg Tablet PO (21:33)
[2024-05-22] VITALS (7 sets, daily range): BP systolic 84–102; BP diastolic 55–64; PULSE 58–83; RESP 16–18; TEMP 36.6–37; O2SAT 95–96
[2024-05-22] MEDS: multivitamin therapeutic Tablet 1 TAB PO (08:48)
[2024-05-22] MEDS: buPROPion XL (24 HR) 150 mg Tablet PO (08:48)
[2024-05-22] MEDS: methadone 10 mg Tablet 60 MG PO (08:49)
[2024-05-22] MEDS: thiamine 100 mg Tablet PO (08:49)
[2024-05-22] MEDS: folic acid 1 mg Tablet PO (08:49)
--- NOTE | 2024-05-22 16:10 | P.NPUPN_ITS ---
Subjective NPU 2 Subjective: Patient presented today reporting that things are going okay. He presented as he has previously seeming to have very limited insight per staff reports and direct observation. His assessment of his situation was that he really did not do anything wrong and that the systems are working properly but that he is doing what he needs to do. We talked about the fact that he has acknowledges that he is essentially struggling with an been mired and addiction since he was 14 such that over half of his life has been marred by drug use. We discussed as we have before the critical need for him to have an extended period of sobriety to try to allow his mind to reacclimate to a positive perspective. We discussed that this writer editor had talked with his and the family is also clear that he is at a place where he has no sense of [id number] and that everything is always someone else's mistake and he seems to have little appreciation of the impact that addiction is having on his life and his family. He denied any side effects to his medication. Mental Status Exam 2 MSE Comments: This is a slender white male in hospital scrubs with limited grooming and eye contact. No abnormal movements except for psychomotor retardation. Cooperative with exam in mild distress. Speech was slightly decreased rate and volume. Mood described as I think I am okay I am not really sure I need to be here, affect subdued. Thought process organized. Thought content: Patient denied suicidal or homicidal ideation, there were no delusions reported or noted, he denied auditory or visual hallucinations. Attention and concentration appeared intact and memory was somewhat unreliable but likely intentionally so but none were formally tested. He is alert and oriented x 3. Insight and judgment are limited and impulse control is impaired. Vitals/I&O/Wt Last Vital Signs Temp 98 F 05/22/24 08:00 Pulse 70 05/22/24 08:00 Resp 18 05/22/24 08:00 BP 96/55 05/22/24 08:00 Pulse Ox 96 05/22/24 08:00 O2 Del Method Room Air 05/22/24 04:00 Weight last 48 hrs Weight 77.111 kg Data NPU 05/20/24 18:05 05/20/24 18:05 A&P Assessment and plan (1) Bipolar 2 disorder: (2) Suicidal ideation: (3) Opioid dependence: Qualifiers: Substance use status: with opioid-induced mood disorder Qualified Code(s): F11.24 - Opioid dependence with opioid-induced mood disorder (4) ADD (attention deficit disorder): Qualifiers: Hyperactivity presence: present Attention deficit-hyperactivity disorder type: predominantly inattentive Qualified Code(s): 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 He presents on a guardianship hold as his mother and another relative are co-guardians and reportedly found him intoxicated and lying in the street. He was in a sober living/rehab setting and was unable to follow the rules. His UDS was negative for cannabis and amphetamines for the first time but his BAL was 158. 1. Encourage individual, group and milieu therapy. 2. Continue every 15 minute checks for safety. 3. Recommend sober living treatment at the highest level of care to which the patient is willing to commit. 4. We will restart medications and evaluate for safety given 96-hour hold. Verify his methadone dose. 5. Obtain collateral information. 6. Evaluate against the backdrop of the 96-hour hold. PDMP PDMP Reviewed: Not Reviewed Involuntary Hold Information 2 Hold Status: Legal Status: Active Guardianship 96 Hour Hold: 96 Hour Involuntary Admission: Yes Other Hold: Hold End Date: 03/15/24 Attestations NPU 2 Medical Necessity Statement*: Inpatient hospitalization is medically necessary and the clinically appropriate intervention at this time. We will monitor/initiate medications and make changes as indicated. Likely length of stay is 3-5 days. Coding Level of Care Code Acute Code for [facility] Diagnoses Bipolar 2 disorder F31.81 Suicidal ideation R45.851 Opioid dependence with opioid-induced mood disorder F11.24 Substance use status: with opioid-induced mood disorder Attention deficit hyperactivity disorder (ADHD), predominantly inattentive type F90.0 Hyperactivity presence: present Attention deficit-hyperactivity disorder type: predominantly inattentive Anxiety and depression F41.9; F32.9 Methamphetamine use disorder, severe F15.20 Alcohol use disorder, severe, dependence F10.20
[2024-05-22] MEDS: ARIPiprazole 10 mg Tablet PO (21:16)
[2024-05-23 06:00] VITALS: BP 110/68; PULSE 90; RESP 17; TEMP 36.7; O2SAT 98
[2024-05-23] MEDS: buPROPion XL (24 HR) 150 mg Tablet PO (08:28)
[2024-05-23] MEDS: folic acid 1 mg Tablet PO (08:29)
[2024-05-23] MEDS: multivitamin therapeutic Tablet 1 TAB PO (08:29)
[2024-05-23] MEDS: methadone 10 mg Tablet 60 MG PO (08:30)
[2024-05-23] MEDS: thiamine 100 mg Tablet PO (08:44)
[2024-05-23] MEDS: nicotine 4 mg lozenge MUCOUS MEM (10:24)
--- NOTE | 2024-05-23 13:42 | P.NPUPN_ITS ---
Subjective NPU 2 Subjective: Patient presented today reporting that he is doing okay. He reports that he did speak with his after she and I had a conversation. He reports that there is some conflict about what to do next. We discussed the fact that the social work team is working on sober living options and that he might have an option of going to rehab by Tuesday possibly. We continued to discuss the importance of sober living treatment for him and hopefully getting him in a inpatient rehab followed by some longer treatment and he seems to be somewhat less ambivalent about those possibilities. He denied any side effects to his medication. Mental Status Exam 2 MSE Comments: This is a slender white male in hospital scrubs with limited grooming and eye contact. No abnormal movements except for psychomotor retardation. Cooperative with exam in mild distress. Speech was slightly decreased rate and volume. Mood described as I think I am okay I am not really sure I need to be here, affect subdued. Thought process organized. Thought content: Patient denied suicidal or homicidal ideation, there were no delusions reported or noted, he denied auditory or visual hallucinations. Attention and concentration appeared intact and memory was somewhat unreliable but likely intentionally so but none were formally tested. He is alert and oriented x 3. Insight and judgment are limited and impulse control is impaired. Vitals/I&O/Wt Last Vital Signs Temp 98.1 F 05/23/24 06:00 Pulse 90 05/23/24 06:00 Resp 17 05/23/24 06:00 BP 110/68 05/23/24 06:00 Pulse Ox 98 05/23/24 06:00 O2 Del Method Room Air 05/23/24 06:00 Data NPU 05/20/24 18:05 05/20/24 18:05 A&P Assessment and plan (1) Bipolar 2 disorder: (2) Suicidal ideation: (3) Opioid dependence: Qualifiers: Substance use status: with opioid-induced mood disorder Qualified Code(s): F11.24 - Opioid dependence with opioid-induced mood disorder (4) ADD (attention deficit disorder): Qualifiers: Hyperactivity presence: present Attention deficit-hyperactivity disorder type: predominantly inattentive Qualified Code(s): 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 He presents on a guardianship hold as his mother and another relative are co-guardians and reportedly found him intoxicated and lying in the street. He was in a sober living/rehab setting and was unable to follow the rules. His UDS was negative for cannabis and amphetamines for the first time but his BAL was 158. 1. Encourage individual, group and milieu therapy. 2. Continue every 15 minute checks for safety. 3. Recommend sober living treatment at the highest level of care to which the patient is willing to commit. 4. We will restart medications and evaluate for safety given 96-hour hold. Verify his methadone dose. 5. Obtain collateral information. 6. Evaluate against the backdrop of the 96-hour hold. PDMP PDMP Reviewed: Not Reviewed Involuntary Hold Information 2 Hold Status: Legal Status: Active Guardianship 96 Hour Hold: 96 Hour Involuntary Admission: Yes Other Hold: Hold End Date: 03/15/24 Attestations NPU 2 Medical Necessity Statement*: Inpatient hospitalization is medically necessary and the clinically appropriate intervention at this time. We will monitor/initiate medications and make changes as indicated. Likely length of stay is 2-4 days. Coding Level of Care Code Acute Code for [facility] Diagnoses Bipolar 2 disorder F31.81 Suicidal ideation R45.851 Opioid dependence with opioid-induced mood disorder F11.24 Substance use status: with opioid-induced mood disorder Attention deficit hyperactivity disorder (ADHD), predominantly inattentive type F90.0 Hyperactivity presence: present Attention deficit-hyperactivity disorder type: predominantly inattentive Anxiety and depression F41.9; F32.9 Methamphetamine use disorder, severe F15.20 Alcohol use disorder, severe, dependence F10.20
[2024-05-23 14:00] VITALS: BP 109/72; PULSE 81; RESP 16; TEMP 37.1; O2SAT 99
[2024-05-23 19:50] VITALS: BP 116/75; PULSE 83; RESP 17; TEMP 36.9; O2SAT 98
[2024-05-23] MEDS: ARIPiprazole 10 mg Tablet PO (22:03)
[2024-05-24 06:00] VITALS: BP 95/58; PULSE 87; RESP 17; TEMP 36.7; O2SAT 97
[2024-05-24 08:18] VITALS: RESP 16; O2SAT 98
[2024-05-24] MEDS: methadone 10 mg Tablet 60 MG PO (08:18)
[2024-05-24] MEDS: buPROPion XL (24 HR) 150 mg Tablet PO (08:19)
[2024-05-24] MEDS: thiamine 100 mg Tablet PO (08:19)
[2024-05-24] MEDS: multivitamin therapeutic Tablet 1 TAB PO (08:19)
[2024-05-24] MEDS: nicotine 4 mg lozenge MUCOUS MEM (08:19)
[2024-05-24] MEDS: folic acid 1 mg Tablet PO (08:19)
[2024-05-24] MEDS: acetaminophen 325 mg Tablet 650 MG PO (11:05)
[2024-05-24 14:00] VITALS: BP 139/85; PULSE 84; RESP 16; TEMP 36.8; O2SAT 99
--- NOTE | 2024-05-24 16:09 | P.NPUPN_ITS ---
Subjective NPU 2 Subjective: Patient presents today reporting that things are going okay. He is either going to [facility] or to this program on Tuesday but it has not been decided by his guardians. He endorses being supportive of this plan and denied any concerns at this time. He continues to be somewhat ambivalent about treatment and continues to have limited insight but is reporting being in agreement with moving forward with inpatient treatment but he is unclear of where they will do it at this time. He denied any side effects to the medication. Mental Status Exam 2 MSE Comments: This is a slender white male in hospital scrubs with limited grooming and eye contact. No abnormal movements except for psychomotor retardation. Cooperative with exam in mild distress. Speech was slightly decreased rate and volume. Mood described as I think I am okay I am not really sure I need to be here, affect subdued. Thought process organized. Thought content: Patient denied suicidal or homicidal ideation, there were no delusions reported or noted, he denied auditory or visual hallucinations. Attention and concentration appeared intact and memory was somewhat unreliable but likely intentionally so but none were formally tested. He is alert and oriented x 3. Insight and judgment are limited and impulse control is impaired. Vitals/I&O/Wt Last Vital Signs Temp 98.2 F 05/24/24 14:00 Pulse 84 05/24/24 14:00 Resp 16 05/24/24 14:00 BP 139/85 05/24/24 14:00 Pulse Ox 99 05/24/24 14:00 O2 Del Method Room Air 05/24/24 14:00 Data NPU 05/20/24 18:05 05/20/24 18:05 A&P Assessment and plan (1) Bipolar 2 disorder: (2) Suicidal ideation: (3) Opioid dependence: Qualifiers: Substance use status: with opioid-induced mood disorder Qualified Code(s): F11.24 - Opioid dependence with opioid-induced mood disorder (4) ADD (attention deficit disorder): Qualifiers: Hyperactivity presence: present Attention deficit-hyperactivity disorder type: predominantly inattentive Qualified Code(s): 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 He presents on a guardianship hold as his mother and another relative are co-guardians and reportedly found him intoxicated and lying in the street. He was in a sober living/rehab setting and was unable to follow the rules. His UDS was negative for cannabis and amphetamines for the first time but his BAL was 158. 1. Encourage individual, group and milieu therapy. 2. Continue every 15 minute checks for safety. 3. Recommend sober living treatment at the highest level of care to which the patient is willing to commit. 4. We will restart medications and evaluate for safety given 96-hour hold. Verify his methadone dose. 5. Obtain collateral information. 6. Evaluate against the backdrop of the 96-hour hold. PDMP PDMP Reviewed: Not Reviewed Involuntary Hold Information 2 Hold Status: Legal Status: Active Guardianship 96 Hour Hold: 96 Hour Involuntary Admission: Yes Other Hold: Hold End Date: 03/15/24 Attestations NPU 2 Medical Necessity Statement*: Inpatient hospitalization is medically necessary and the clinically appropriate intervention at this time. We will monitor/initiate medications and make changes as indicated. Likely length of stay is 4-5 days. Coding Level of Care Code Acute Code for [facility] Diagnoses Bipolar 2 disorder F31.81 Suicidal ideation R45.851 Opioid dependence with opioid-induced mood disorder F11.24 Substance use status: with opioid-induced mood disorder Attention deficit hyperactivity disorder (ADHD), predominantly inattentive type F90.0 Hyperactivity presence: present Attention deficit-hyperactivity disorder type: predominantly inattentive Anxiety and depression F41.9; F32.9 Methamphetamine use disorder, severe F15.20 Alcohol use disorder, severe, dependence F10.20
[2024-05-24 19:54] VITALS: BP 110/68; PULSE 79; RESP 16; TEMP 36.9; O2SAT 96
[2024-05-24] MEDS: ARIPiprazole 10 mg Tablet PO (21:32)
[2024-05-25 06:00] VITALS: BP 104/64; PULSE 60; RESP 16; O2SAT 96
[2024-05-25] MEDS: methadone 10 mg Tablet 60 MG PO (09:17)
[2024-05-25] MEDS: multivitamin therapeutic Tablet 1 TAB PO (09:18)
[2024-05-25] MEDS: folic acid 1 mg Tablet PO (09:18)
[2024-05-25] MEDS: thiamine 100 mg Tablet PO (09:18)
[2024-05-25] MEDS: buPROPion XL (24 HR) 150 mg Tablet PO (09:18)
[2024-05-25 14:00] VITALS: BP 120/80; PULSE 92; RESP 16; TEMP 37.1; O2SAT 95
[2024-05-25] MEDS: acetaminophen 325 mg Tablet 650 MG PO (14:04)
--- NOTE | 2024-05-25 15:51 | P.NPUPN_ITS ---
Subjective NPU 2 Subjective: Patient presented today reporting that he is doing okay. We are able to talk to his guardians which endorse a plan for leaving for [place] on Tuesday, getting his dentures replaced and then going further appointment on Tuesday which will identify whether they are going with a different program or [facility] on Tuesday. Otherwise he feels his medications are working fine he denied any medication issues/side effects. Mental Status Exam 2 MSE Comments: This is a slender white male in hospital scrubs with limited grooming and eye contact. No abnormal movements except for psychomotor retardation. Cooperative with exam in mild distress. Speech was slightly decreased rate and volume. Mood described as I think I am okay I am not really sure I need to be here, affect subdued. Thought process organized. Thought content: Patient denied suicidal or homicidal ideation, there were no delusions reported or noted, he denied auditory or visual hallucinations. Attention and concentration appeared intact and memory was somewhat unreliable but likely intentionally so but none were formally tested. He is alert and oriented x 3. Insight and judgment are limited and impulse control is impaired. Vitals/I&O/Wt Last Vital Signs Temp 98.7 F 05/25/24 14:00 Pulse 92 05/25/24 14:00 Resp 16 05/25/24 14:00 BP 120/80 05/25/24 14:00 Pulse Ox 95 05/25/24 14:00 O2 Del Method Room Air 05/25/24 14:00 Data NPU 05/20/24 18:05 05/20/24 18:05 A&P Assessment and plan (1) Bipolar 2 disorder: (2) Suicidal ideation: (3) Opioid dependence: Qualifiers: Substance use status: with opioid-induced mood disorder Qualified Code(s): F11.24 - Opioid dependence with opioid-induced mood disorder (4) ADD (attention deficit disorder): Qualifiers: Hyperactivity presence: present Attention deficit-hyperactivity disorder type: predominantly inattentive Qualified Code(s): 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 He presents on a guardianship hold as his mother and another relative are co-guardians and reportedly found him intoxicated and lying in the street. He was in a sober living/rehab setting and was unable to follow the rules. His UDS was negative for cannabis and amphetamines for the first time but his BAL was 158. 1. Encourage individual, group and milieu therapy. 2. Continue every 15 minute checks for safety. 3. Recommend sober living treatment at the highest level of care to which the patient is willing to commit. 4. We will restart medications and evaluate for safety given 96-hour hold. Verify his methadone dose. 5. Obtain collateral information. Tentative plan for discharge on Tuesday. Patient going to inpatient rehab. He has a appointment for evaluation on Tuesday morning after he gets his dentures repaired. After that appointment he will determine whether he is going to that program or [facility] on Tuesday. 6. Evaluate against the backdrop of the 96-hour hold. PDMP PDMP Reviewed: Not Reviewed Involuntary Hold Information 2 Hold Status: Legal Status: Active Guardianship 96 Hour Hold: 96 Hour Involuntary Admission: Yes Other Hold: Hold End Date: 03/15/24 Attestations NPU 2 Medical Necessity Statement*: Inpatient hospitalization is medically necessary and the clinically appropriate intervention at this time. We will monitor/initiate medications and make changes as indicated. Likely length of stay is 2 days. Coding Level of Care Code Acute Code for [facility] Diagnoses Bipolar 2 disorder F31.81 Suicidal ideation R45.851 Opioid dependence with opioid-induced mood disorder F11.24 Substance use status: with opioid-induced mood disorder Attention deficit hyperactivity disorder (ADHD), predominantly inattentive type F90.0 Hyperactivity presence: present Attention deficit-hyperactivity disorder type: predominantly inattentive Anxiety and depression F41.9; F32.9 Methamphetamine use disorder, severe F15.20 Alcohol use disorder, severe, dependence F10.20
[2024-05-25 20:36] VITALS: BP 111/60; PULSE 75; RESP 18; O2SAT 97
[2024-05-25] MEDS: ARIPiprazole 10 mg Tablet PO (21:41)
[2024-05-26 06:00] VITALS: BP 101/65; PULSE 84; RESP 16; O2SAT 97
--- NOTE | 2024-05-26 08:42 | P.NPUPN_ITS ---
Subjective NPU 2 Subjective: Patient presented today reporting that he is doing fine. He reported he was ready to discharge tomorrow. We discussed the fact that his family is going to come pick him up. He initially reported that his mother wanted to pick him up as early as possible so that he could go to [place] with them. After we met we reached out to mom and she denied this and reported this was his request as he was trying to impact the discharge time instead of doing what was agreed upon. Otherwise he denied any issues with his medication or side effects and reported he was ready to embark upon his continued recovery. Mental Status Exam 2 MSE Comments: This is a slender white male in hospital scrubs with limited grooming and eye contact. No abnormal movements except for psychomotor retardation. Cooperative with exam in mild distress. Speech was slightly decreased rate and volume. Mood described as I think I am okay I am not really sure I need to be here, affect subdued. Thought process organized. Thought content: Patient denied suicidal or homicidal ideation, there were no delusions reported or noted, he denied auditory or visual hallucinations. Attention and concentration appeared intact and memory was somewhat unreliable but likely intentionally so but none were formally tested. He is alert and oriented x 3. Insight and judgment are limited and impulse control is impaired. Vitals/I&O/Wt Last Vital Signs Temp 98.7 F 05/25/24 14:00 Pulse 84 05/26/24 06:00 Resp 16 05/26/24 06:00 BP 101/65 05/26/24 06:00 Pulse Ox 97 05/26/24 06:00 O2 Del Method Room Air 05/25/24 14:00 Data NPU 05/20/24 18:05 05/20/24 18:05 A&P Assessment and plan (1) Bipolar 2 disorder: (2) Suicidal ideation: (3) Opioid dependence: Qualifiers: Substance use status: with opioid-induced mood disorder Qualified Code(s): F11.24 - Opioid dependence with opioid-induced mood disorder (4) ADD (attention deficit disorder): Qualifiers: Hyperactivity presence: present Attention deficit-hyperactivity disorder type: predominantly inattentive Qualified Code(s): 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 He presents on a guardianship hold as his mother and another relative are co-guardians and reportedly found him intoxicated and lying in the street. He was in a sober living/rehab setting and was unable to follow the rules. His UDS was negative for cannabis and amphetamines for the first time but his BAL was 158. 1. Encourage individual, group and milieu therapy. 2. Continue every 15 minute checks for safety. 3. Recommend sober living treatment at the highest level of care to which the patient is willing to commit. 4. We will restart medications and evaluate for safety given 96-hour hold. Verify his methadone dose. 5. Obtain collateral information. Tentative plan for discharge on Tuesday. Patient going to inpatient rehab. He has a appointment for evaluation on Tuesday morning after he gets his dentures repaired. After that appointment he will determine whether he is going to that program or [facility] on Tuesday. 6. Evaluate against the backdrop of the 96-hour hold. PDMP PDMP Reviewed: Not Reviewed Involuntary Hold Information 2 Hold Status: Legal Status: Active Guardianship 96 Hour Hold: 96 Hour Involuntary Admission: Yes Other Hold: Hold End Date: 03/15/24 Attestations NPU 2 Medical Necessity Statement*: Inpatient hospitalization is medically necessary and the clinically appropriate intervention at this time. We will monitor/initiate medications and make changes as indicated. Likely length of stay is 1 day. Coding Level of Care Code Acute Code for [facility] Diagnoses Bipolar 2 disorder F31.81 Suicidal ideation R45.851 Opioid dependence with opioid-induced mood disorder F11.24 Substance use status: with opioid-induced mood disorder Attention deficit hyperactivity disorder (ADHD), predominantly inattentive type F90.0 Hyperactivity presence: present Attention deficit-hyperactivity disorder type: predominantly inattentive Anxiety and depression F41.9; F32.9 Methamphetamine use disorder, severe F15.20 Alcohol use disorder, severe, dependence F10.20
[2024-05-26] MEDS: methadone 10 mg Tablet 60 MG PO (08:55)
[2024-05-26] MEDS: buPROPion XL (24 HR) 150 mg Tablet PO (08:56)
[2024-05-26] MEDS: multivitamin therapeutic Tablet 1 TAB PO (08:56)
[2024-05-26] MEDS: folic acid 1 mg Tablet PO (08:56)
[2024-05-26] MEDS: thiamine 100 mg Tablet PO (08:56)
[2024-05-26] MEDS: nicotine 4 mg lozenge MUCOUS MEM ×2 (11:12→15:54)
[2024-05-26] MEDS: hydrocortisone 1% cream 28 gm 1 APPLIC TOPICAL (12:31)
[2024-05-26 14:00] VITALS: BP 114/71; PULSE 85; RESP 18; TEMP 36.7; O2SAT 99
[2024-05-26 20:28] VITALS: BP 101/71; PULSE 97; RESP 18; TEMP 36.7; O2SAT 97
[2024-05-26] MEDS: ARIPiprazole 10 mg Tablet PO (20:43)
[2024-05-27 06:00] VITALS: BP 105/60; PULSE 88; RESP 18; O2SAT 97
[2024-05-27] MEDS: methadone 10 mg Tablet 60 MG PO (08:06)
[2024-05-27] MEDS: thiamine 100 mg Tablet PO (08:06)
[2024-05-27] MEDS: folic acid 1 mg Tablet PO (08:06)
[2024-05-27] MEDS: buPROPion XL (24 HR) 150 mg Tablet PO (08:06)
[2024-05-27] MEDS: multivitamin therapeutic Tablet 1 TAB PO (08:06)
--- NOTE | 2024-05-27 11:30 | P.NPUDS_ITS ---
Diagnoses at Discharge Discharge Diagnosis (1) Bipolar 2 disorder: Status: Acute (2) Suicidal ideation: Status: Inactive (3) Opioid dependence: Status: Acute Qualifiers: Substance use status: with opioid-induced mood disorder Qualified Code(s): F11.24 - Opioid dependence with opioid-induced mood disorder (4) ADD (attention deficit disorder): Status: Acute Qualifiers: Attention deficit-hyperactivity disorder type: predominantly inattentive Hyperactivity presence: present Qualified Code(s): F90.0 - Attention-deficit hyperactivity disorder, predominantly inattentive type Permanent problem details: Diagnosed at age of 8 yr old (5) Anxiety and depression: Status: Resolved (6) Methamphetamine use disorder, severe: Status: Resolved (7) Alcohol use disorder, severe, dependence: Status: Resolved Reason for Visit Reason for Visit: drunk, possible 96 Brief History: History of Present Illness Aj York is a 29 year old male who presented to the emergency department with the following report: Chief Complaint: Psychiatric Symptoms Stated Complaint: drunk, possible 96 Time Seen by Provider: 05/20/24 18:04 History of Present Illness: 29-year-old male gentleman known to the neuropsychiatric unit at this facility. He presents with law enforcement, and his guardian mother following an episode of intoxication today, and lying down in the middle of the road. The patient reported this to his and was found by her as such. He was recently admitted to the NPU, and discharged to an outpatient rehabilitation center for substance abuse, mainly alcohol and methamphetamine. He reportedly left that facility twice a day, became intoxicated, and the above happened. Patient's guardian mother is also interviewed. She requests that because of his earlier actions, he be admitted for psychiatric evaluation. He was admitted to the neuropsychiatric unit for definitive treatment of those issues. He is known to [facility] [place] [facility] through previous services with significant inpatient services since September of last year. His last stay included with him being placed in guardianship and he had gone to a rehab he reports. An excerpt from his last discharge summary from earlier this month is included below for context and the fact that there have been no substantive changes. He reports that he went to this rehab and they had rules that you could not go by yourself places and you could go on walks and he reports that taking walks it is a #1 way to cope with stress. So he reports that he started to go for a walk in a had him come back and he went back. He reports that yesterday he went for a walk and he did not return as they requested. He reports he then got 3 shots and drank them and then his mother reportedly found him and he would not go back to the rehab and there was a conflict that led to him being brought here. He could not give any explanation for why if he is as functional as he says he is that he cannot follow some rules that he does not necessarily like for 30 days to get to a better place. He continued to report that somehow things would miraculously get better if he moved in with his and continue to focus on his mother being the obstacle for him getting employment and somehow was blaming everyone else for his difficulty with sobriety. We agreed that we would restart his medication and get some collateral information and go from there. Per his 05/10/2024 [facility] [place] [facility] inpatient psychiatric discharge summary: Diagnoses at Discharge Discharge Diagnosis (1) Methamphetamine-induced mood disorde r: Status: Acute (2) Bipolar 2 disorder: Status: Inactive (3) Suicidal ideation: Status: Inactive (4) Opioid dependence: Status: Acute Qualifiers: Substance use status: with opioid-induced mood disorder Qualified Code(s): F11.24 - Opioid dependence with opioid-induced mood disorder (5) ADD (attention deficit disorder): Status: Inactive Qualifiers: Hyperactivity presence: present Attention deficit-hyperactivity disorder type: predominantly inattentive Qualified Code(s): 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, predominantly inattentive type Permanent problem details: Diagnosed at age of 8 yr old (6) Anxiety and depression: Status: Resolved (7) Methamphetamine use disorder, severe : Status: Acute (8) Alcohol use disorder, severe, depend ence: Status: Acute Reason for Visit Reason for Visit: 96 Brief History: History of Present Illness Aj York is a 29 year old male who presented to the emergency department with the following report: Chief Complaint: Psychiatric Symptoms Stated Complaint: 96 Time Seen by Provider: 04/27/24 13:20 Source: patient and police Mode of arrival: ambulatory Limitations: no limitations History of Present Illness: Patient is a 29-year-old male who is brought to the emergency department on a 96-hour hold. Patient arrives here with 6+ affidavits from friends/family stating their concerns. Patient has been seen here in our emergency department and admitted to NPU several times. According to some of the affidavits he has recently jumped out of a moving car, has been trespassing on others' property, has been very paranoid, has made suicidal and homicidal threats, has erratic behavior, has a history of methamphetamine and alcohol abuse, etc. Duration: constant History of same: Yes Exacerbating factors: alcohol and drug use Associated symptoms: Reports depression; Deny homicidal ideation or suicidal ideation Treatments prior to arrival: placed on mental health hold. He was admitted to the neuropsychiatric unit for definitive treatment of those issues. He is known to [facility] [place] [facility] through multiple inpatient services with this being the fourth hospitalization since the end of September 2023. With 2 more hospitalizations going back to May 2022 and this is the second 1 this year. He also has had some inpatient services through [facility] [place] [facility] but an excerpt of his last inpatient hospitalization from February of this year is included below for context and the fact that there is no substantive changes. He is on a 96-hour hold with multiple affidavits. There was also some information identifying that he has a guardianship hearing very soon. It appears his mother is filing for guardianship. He is known to this consumer loan underwriter personally and presents today reporting that he felt he had been doing okay. He reports that he had been going to [facility] for his methadone and following up with outside providers for his mental health medications. He reports that unfortunat jerome his living arrangement had been challenging because no one would allow him to stay with them. He reports that he had been living with his dad most recently and that he had left his dad's house to go to his mom's house which is about a mile away and walking distance. He reports that outside of that he had been basically couch surfing. He reports that he has not been working and attributed that to the fact that he could not get dependable transportation to interviews and things of the like. He reports that his relationship with his is still challenging but reports that the night before he came in he had spent some time with her as she had come over to visit him and brought some shots. He reports that after he took those and slept that off he went over to his mom's and was approached by the police on his way back to his father's house. He reports that he has cannabis use and that he had not been using methamphetamine as much. However we discussed that his UDS was positive for methamphetamines so his report of last usage over 2 weeks ago was fairly unlikely. He denied really understanding why he is here because he thought he had been doing fairly well. We discussed this consumer loan underwriter reviewing his old to determine the need for the hospitalization. However he reports that he knew about that hearing for his guardianship but that possibly his mother was saying she was not going to follow through with that. He also reported that he needed to get down to [place] the beginning of the week for some of an uncle. But he did not seem to know a lot of information about the or when his might be. We discussed the risks, benefits and alternatives of continuing his current medications while we figure out the circumstances and take it a day at a time and he understood and agreed to proceed as is documented in this note. Per his 03/14/2024 [facility] [place] [facility] inpatient psychiatric discharge summary: Discharge Diagnosis (1) Bipolar 2 disorder: Status: Inactive (2) Suicidal ideation: Status: Inactive (3) Opioid dependence: Status: Acute Qualifiers: Substance use status: with opioid-induced mood disorder Qualified Code(s): F11.24 - Opioid dependence with opioid-induced mood disorder (4) ADD (attention deficit disorder): Status: Acute Qualifiers: Attention deficit-hyperactivity disorder type: predominantly inattentive Hyperactivity presence: present Qualified Code(s): F90.0 - Attention-deficit hyperactivity disorder, predominantly inattentive type Permanent problem details: Diagnosed at age of 8 yr old (5) Anxiety and depression: Status: Acute (6) Methamphetamine use disorder, severe : Status: Acute (7) Alcohol use disorder, severe, depend ence: Status: Acute Reason for Visit Reason for Visit: 96 Brief History: History of Present Illness Aj York is a 28 year old male who presented to the emergency department with the following report: Chief Complaint: Psychiatric Symptoms Stated Complaint: 96 Time Seen by Provider: 03/09/24 18:02 Source: patient and police Limitations: no limitations History of Present Illness: 28-year-old male who is here with police under 96-hour hold per police patient has been using methamphetamine family placed on a 96-hour hold as he is been having erratic behaviors, hallucinations patient here denies SI or HI but does appear to be under the influince of meth Associated symptoms: Reports auditory hallucinations, delusions and depression. He was admitted to the neuropsychiatric unit for definitive treatment of those issues. He is known to [facility] [place] [facility] psychiatric services through inpatient treatment and he has had some follow-up with family medicine where he was getting ADHD medication as prescribed which she reports was successful. However he reports his PCP retired and he has been unable to get restarted on his ADHD medications. He reports that this visit is much like others where he is, and after conflict with his and/or mother. He reports that this will happen this time and that he once again does not feel that he really needs to be in the hospital but that his mother was worried about him and ended up asking for a wellness check which spiraled into him being on this hold. He reports he has been having significant difficulty with his . He reports that recently they had and then he came back after a few months and they were trying to work through things but his mother was getting involved in a way that he reported was not helpful. He reports there may have been issues with his messing with his medications. He reports that his conflicts with these 2 women led him to leaving his house and trying to get some time alone. He reports that he returned with a friend to get some stuff but his was too [id number] so he left. He reports that he does not feel suicidal or feel like there were any problems other than maybe being off of his psychiatric medication and also struggling to make it to his methadone appointments which is led to them talking about discontinuing his services. He reports that he is open to working with the social work team to try to get a sense of what the best direction to go in to find out where the methadone clinic feels like they should be heading for treatment moving forward. An excerpt of his last inpatient hospitalization is included below for context and the fact that he reports no substantive changes: Per his 01/27/2024 [facility] [place] [facility] inpatient psychiatric discharge summary: Discharge Diagnosis (1) Bipolar 2 disorder: Status: Inactive (2) Suicidal ideation: Status: Inactive (3) Opioid dependence: Status: Acute Qualifiers: Substance use status: with opioid-induced mood disorder Qualified Code(s): F11.24 - Opioid dependence with opioid-induced mood disorder (4) ADD (attention deficit disorder): Status: Acute Qualifiers: Hyperactivity presence: present Attention deficit-hyperactivity disorder type: predominantly inattentive Qualified Code(s): 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 The patient was accompanied by police and the affidavit written by the patient's ex- had suggested that the patient was making threats to kill himself. She had stated that the patient had told her that he wanted to and hoped that he could torture the patient's ex-. The patient had according to the affidavit been declining with continued active drug use and increasingly disturbing behavior. He had been increasingly suspicious that others were out to harm him and had recently acknowledged having been homeless for the past few days. The patient had reported that he had recently lost his job and had continued to use alcohol and methamphetamine. He reports that he has not been compliant with his psychiatric medications. Patient had minimized having any problems with depression or anxiety. He had admitted to continued use of alcohol and meth amphetamine use despite adverse consequences. He reports that he had previously been on methadone but states that he had not been able to get back to the methadone clinic for the past week and was now experiencing withdrawal symptoms. The patient had reported no prior history of inpatient substance abuse treatment. The patient had accused his ex- of kicking him out of the house without any close although the affidavit had stated that Aj had appeared confused and had not remembered that he had moved out several months ago without having any close they are to wear. The patient had admitted that he had been having increased problems with his memory and concentration. He had reported some recent sleep continuity disruption. Inpatient psychiatric history: He reports at least 5 hospitalizations with a history of suicide attempts and self-injurious behavior stating he had been hospitalized for the first time at the age of 15.He reports history of multiple suicide attempts. Outpatient psychiatric history: He had reported receiving psychotherapy at the behavioral health clinic weekly in the past Previous diagnoses include bipolar disorder opiate dependence ,panic disorder, methamphetamine use disorder, ADHD CT, Drug and alcohol history: He had reported a 4-year history of opiate abuse on and off beginning at the age of 15 or 16. He also endorsed a history of alcohol abuse that appeared more significant beginning at the age of 16 and reports no history of alcohol withdrawal symptoms. He also reported chronic use of marijuana since the age of 14. He has no history of inpatient or outpatient drug treatment. Allergies: Penicillin Surgical history: Colonoscopy x2 Medical history :history of juvenile rheumatoid arthritis history of headaches, history of vitamin D deficiency, history of questionable ulcerative colitis, history of peripheral neuropathy, Family Psychiatric History: Bipolar disorder-paternal side of family, Legal History: unknown Excerpt from NPU Discharge Summary on 10/24/23 Discharge Diagnosis (1) Bipolar 2 disorder: Status: Acute (2) Suicidal ideation: Status: Inactive (3) Opioid dependence: Status: Acute Qualifiers: Substance use status: with opioid-induced mood disorder Qualified Code(s): F11.24 - Opioid dependence with opioid-induced mood disorder (4) ADD (attention deficit disorder): Status: Acute Qualifiers: Attention deficit-hyperactivity disorder type: predominantly inattentive Hyperactivity presence: present Qualified Code(s): F90.0 - Attention-deficit hyperactivity disorder, predominantly inattentive type Permanent problem details: Diagnosed at age of 8 yr old (5) Anxiety and depression: Status: Acute (6) Methamphetamine use disorder, severe : Status: Acute (7) Alcohol use disorder, severe, depend ence: Status: Acute Reason for Visit ETOH/ SI Brief History: History of Present Illness Aj York is a 28 year old male who presented to the emergency department with the following report: Chief Complaint: Psychiatric Symptoms Stated Complaint: ETOH/ SI Time Seen by Provider: 10/19/23 13:40 Source: patient and EMS Mode of arrival: EMS Limitations: no limitations History of Present Illness: 28-year-old male who is here with possib le ascites. Patient is intoxicated states has been drinking since 11 last night EMS states his had said he made suicidal statements to her he denies he states he is not suicidal he states that they have been fighting he denies SI at this time. He is visibly intoxicated at this time he has no other complaints. He was admitted to the neuropsychiatric unit for definitive treatment of those issues. He is known to inpatient and outpatient services here at [facility] [place] [facility]. His last inpatient stay was in January of last year and an excerpt of that discharge summary is included below for context. He presented today reporting that he has been struggling since he was here last. He reports that his addiction is active with alcohol use, methamphetamine use and other substances. He reports that despite that and him not taking any of his psychiatric medications right now he feels like he had not been doing horribly and feels that the 96-hour hold was a stretch of the truth. We discussed the importance of him getting back on his medications and working on his sobriety. He reported a plan to go to one of his supports named [facility] and stay with him. We discussed him getting into a sober living facility and he was talking about going to [facility]. We challenges whether that made sense given his situation. There have been recent issues of violence with his ex and there is a restraining order against him. Additionally there is some custody issues that are pressing. He reports that he is having depression and he is having anxiety and stress but he thinks that a lot of his problems are situational and that may be going to a different place like [facility] will allow him to do what he is done in the past which is to get sober on his own. We discussed looking at his medications and and considering the risks, benefits and alternatives of restarting any of them or some of them and he understood and agreed to proceed as is documented in this note. For his 02/25/2023 [facility] [place] [facility] inpatient psychiatric discharge summary: Discharge Diagnosis (1) Bipolar 2 disorder: Status: Ac giovani (2) Suicidal ideation: Status: Show Low ctive (3) Opioid dependence: Status: Acu te (4) ADD (attention deficit disorder): Status: Acute Permanent problem details: Diagnosed at age of 8 yr old (5) Anxiety and depression: Status : Acute Reason for Visit Reason for Visit: SI Brief History: History of Present Illness Aj York is a 27 year old male who presented to the emergency department with the following report: Chief Complaint: Psychiatric Symptoms Stated Complaint: SI Time Seen by Provider: 02/22/23 19:36 Source: patient Mode of arrival: ambulatory Limitations: no limitations History of Present Illness: 27-year-old male is here with his mother she states that he has a history of bipolar has not been taking his meds for months and has been on a decline. States that she got a call from his friend that he was stating that he is going to kill himself. Patient states has been drinking tonight and does not remember this but does admit he has not been taking his meds and has been worsening. Associated symptoms: Reports depression and suicidal ideation. He was admitted to the neuropsychiatric unit for the treatment of those issues. He presented today reporting that he feels good and that is all it is understanding. Did not seem to be a reliable historian that he initially reported having no recollection of why anyone would suggest there was suicidality but eventually admitted that his friend identified multiple lethal text messages and finally endorsed that he was drunk while sending these messages. We discussed real concern about him being prescribed methadone, immediate release Ritalin, Klonopin, smoking cigarettes and Cannabis and getting drunk. We discussed concerns that he does not see a psychiatrist and reported that he had some disagreement with [facility]. Discussed me having concerns about this regimen. He had limited insight into the fact that all his solutions seem to be controlled substances. An excerpt of his May 2022 short stay is included for history and absence of substantive changes except Methadone instead of soboxone. He ultimately felt hospitalization not warranted and wanted to leave and we discussed us doing our due diligence on lethality on [address] Pillai, whom he knows being here tomorrow to examine the situation and consider discharge and other decisions. Per his 06/09/2022 [facility] [place] [facility] inpatient psychiatric discharge summary: Discharge Diagnosis (1) Bipolar 2 disorder: Status: Ac giovani (2) Suicidal ideation: Status: Acu te (3) Opioid dependence: Status: Acu te Reason for Visit Reason for Visit: MHE Brief History: History of Present Illness Aj York is a 27 year old white male who had reported that over the past month he had had increased frequency and intensity of suicide with specific plan other than possibly a pill overdose. He had reported to the crisis intervention team that he had had a thought of overdosing on Benadryl. He was agreeable to coming into the emergency department for further evaluation where he stated that he had an extended history of suicidal ideation and states that he has been having more frequent thoughts of suicide over the past 3 weeks. He had reported that his depression had been worse with complaints of decreased energy and hypersomnia. He had endorsed the use of marijuana. He had reported that he had been more frustrated at work as he states that he struggles with ADHD and has chronic problems with focus with distractibility and difficulties with staying on task. He reports frequently procrastinating and states that he struggles with shifting attention. Furthermore he endorses having panic attacks every day to every other day that appear on triggered with associated chest pain shortness of breath difficulty swallowing and difficulties with breathing. He reports that he has been attending therapy weekly but still endorses agoraphobia. He had also reported a past history over the last 5 years of hypomanic symptoms lasting less than 7 days with decreased need for sleep racing thoughts increased spending with associated grandiosity with high energy and increased confidence. He reported during these times that his thoughts appear to be moving faster. He has reported a past history of depressive episodes as well and states that he frequently currently struggles with depressed mood but occasionally has periods of hypomania. He had also endorsed a past history of opiate addiction and states that he has been stable with his current dose of Suboxone. Inpatient psychiatric history: He reports at least 4 hospitalizations with a history of suicide attempts and self-injurious behavior stating he had been hospitalized for the first time at the age of 15. Outpatient psychiatric history: He had reported receiving psychotherapy at the behavioral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
[2024-05-27] MEDS: nicotine 4 mg lozenge MUCOUS MEM (12:40)
[2024-05-27 12:55] VITALS: BP 121/80; PULSE 99; RESP 16; TEMP 37.3; O2SAT 97
[2024-05-27 13:06] VITALS: BP 121/80; PULSE 99; RESP 16; TEMP 37.3; O2SAT 97
== END 2024-05-27 13:08 | disposition home or self-care (01) | DRG 885 ==
LOC: ER 18:04 → NP 21:33
PROVIDERS: Admitting Provider Psychiatry & Neurology Psychiatry; Emergency Provider Emergency Medicine; PCP Family Medicine; Visit Provider Psychiatry & Neurology Psychiatry
DX: F31.81 Bipolar II disorder (principal); R45.851 Suicidal ideations; F15.20 Other stimulant dependence, uncomplicated; F11.24 Opioid dependence with opioid-induced mood disorder; F90.0 Attention-deficit hyperactivity disorder, predominantly inattentive type; F41.9 Anxiety disorder, unspecified; F17.290 Nicotine dependence, other tobacco product, uncomplicated; F10.229 Alcohol dependence with intoxication, unspecified; Y90.6 Blood alcohol level of 120-199 mg/100 ml
CPT/HCPCS: 80053; 80306; 80307; 81001; 85025; 93005; 97150; 97165; 99285; J9999

== ENCOUNTER → 2024-08-10 09:55 | Outpatient (BNVA) | payer BC, MEDICAID, SELFPAY | PROVIDERS: PCP Family Medicine; Visit Provider Nurse Practitioner Psychiatric/Mental Health | DX: Z79.899 Other long term (current) drug therapy (principal) | CPT/HCPCS: 80061; 83036 ==

== ENCOUNTER 2024-08-21 10:51 | Inpatient (IN) | payer BC, MEDICAID, SELFPAY ==
--- OUTSIDE RECORDS SUMMARY | 2022-04-02 05:00 | XMS_ITS | Continuity of Care Document ---
Author Organization [facility] Address [id number] [address] Phone Care Team Providers Care Rating Officer Name Role Phone Sage Gottlieb DDS Unavailable Unavailable Allergies, Adverse Reactions, Alerts Substance Reaction Status Criticality PENICILLIN Active No Information Medications Medication Instructions Dosage Effective Dates (start - stop) Status Comments clindamycin HCl 150 mg capsule take 2 capsule by oral route every 6 hours 300 MG - Active hydrocodone 5 mg-acetaminophen 325 mg tablet take 1 tablet by oral route every 6 hours as needed for pain 1.00 tablet - Active clonazepam 0.5 mg tablet take 1 Tablet by Oral route 3 times every day as needed for anxiety 1 Tablet - Active Abilify 2 mg tablet take 1 tablet by oral route every day 2 MG - Active mirtazapine 15 mg tablet take 1 tablet by oral route every day before bedtime 15 MG - Active Procedures Procedure Date Limited Oral Evaluation Problem Focused Panoramic Film Treatment Plan Complete Extraction, Erupted Tooth Or Exposed Lydia t (Elevati Extraction, Erupted Tooth Or Exposed Lydia t (Elevati Extraction, Erupted Tooth Or Exposed Lydia t (Elevati Advance Directives Directive Yes / No Effective Date File Name No Information Encounters Encounter Description Practice Location Reason(s) For Visit Diagnoses Date Provider Providers Copied on Encounter [facility], [id number], [id number], [place] tel:[phone] [facility] Encounter for dental exam and cleaning w/o abnormal findings [facility]azares. [address], [place], [id number], . tel:[phone] Referring Provider: Sage Gottlieb, [address] [place], [address]. tel:[phone] Family History Family Member Type Diagnosis Age At Onset No Information Payers Payer name Insurance type Covered alliance party ID Susu jones(s) [facility] [id number] Social History Type Description Quantity Date Captured Comments Alcohol Use Details Caffeine Use Details Unknown Tobacco Use Status Smoking Status Unknown if ever smoked Non-Smoking Tobacco Use Details : No Details Available : No Details Available Sex Male Sexual Orientation Decline To Specify Gender Identity Male Chief Complaint And Reason For Visit No Information Reason For Referral Reason For Referral No Information History Of Present Illness Encounter Date Complaint History Of Prese nt Illness No Information Functional Status Date Functional Assessmen t No Information Instructions Date Instruction Additional Infor mation No Information Assessments Type Assessment Date No Information Patient Care Teams Name Effective Dates (start - stop) Status Members No Information
[2024-08-21 10:52] VITALS: BP 119/71; PULSE 97; RESP 17; TEMP 36.8; O2SAT 95; BMI 28.5
--- NOTE | 2024-08-21 11:05 | ED.C_ITS ---
HPI - Psych 2 General: Chief Complaint: Psychiatric Symptoms Stated Complaint: MHE Time Seen by Provider: 08/21/24 10:53 Source: patient and police Mode of arrival: ambulatory Limitations: no limitations History of Present Illness: 29-year-old male is here with police. P danielle states he has been argument with his per police he had been making suicidal statements and has been using meth and alcohol. Patient here denies having SI or HI at this time patient has affidavit filled out by police. Associated symptoms: Reports depression Related Data Home Medications ?Medication ?Instructions ?Recorded ?Confirmed methadone 10 mg tablet 60 mg PO .8 am 07/13/2407/29 Previous Rx's ?Medication ?Instructions ?Recorded thiamine mononitrate (vit B1) 100 100 mg PO DAILY 60 d ays #60 tabs 06/13/24 mg tablet (Vitamin B-1 (mononitrate)) aripiprazole 10 mg tablet 15 mg (1.5 x 10 mg) PO BEDTI ME #45 08/14/24 tabs hydroxyzine HCl 50 mg tablet 50 mg PO BID PRN anxiety/ sleep #60 08/14/24 tabs Allergies Allergy/AdvReac Type Severity Reaction Status Date / Time Penicillins Allergy Intermediate Rash Verified 08/10/24 09:42 Review of Systems 2 Const: Denies: fever(s), chills, body aches or change in appetite ENMT: Denies: throat pain or dental pain Card: Denies: chest pain Resp: Denies: dyspnea GI: Denies: abdominal pain, nausea, vomiting or diarrhea : Denies: dysuria Musc: Denies: neck pain or back pain Skin/Breast: Denies: rash Neuro: Denies: headache(s) Psych: Reports: depression [facility] 2 PFSH: Medical History Marijuana use, episodic Alcohol use disorder, severe, dependence Opioid dependence on agonist therapy Nicotine dependence due to vaping tobacco product Bipolar I disorder, most recent episode mixed, severe without psychotic features Generalized anxiety disorder Moderate tobacco use disorder ADD (attention deficit disorder) Diagnosed at age of 8 yr old Involuntary commitment Psychiatric care Constipation Somnolence, daytime Psoriasis-like skin disease GERD (gastroesophageal reflux disease) Irritable bowel syndrome (IBS) Problems with constipation in November and December 2021 and episodes of diarrhea and March and April 2022. Restless leg syndrome Chronic nausea Allergic rhinitis due to allergen Peripheral neuropathy History of juvenile rheumatoid arthritis Ulcerative colitis Family History Other CAD (coronary artery disease) Cancer Hypertension Stroke Denies family history of Rheumatoid arthritis Diabetes Lupus Hyperlipidemia Chronic kidney disease (CKD) Social History Smoking and tobacco/nicotine status: current every day tobacco/nicotine user e- cigarettes E-Cigarette Details: vaporizer device and with nicotine E-cig/vape details: Refill(50 mg)/1 - 1.5 weeks. Quit status (tobacco/nicotine): has tried quititng Number of times tried to quit tobacco: 10 Second hand smoke exposure: No Alcohol intake: current Alcohol intake frequency: 0-2 Drinks per Day Alcohol type: beer and hard liquor Substance/Drug Use: current Substance/Drug use frequency: daily Other substance/drug use details: last use 04/17/24 Caregiver/support person: No Lives independently: Yes Household members: spouse Marital status: Number of children: 1 service: No Do you think of yourself as: Straight/Heterosexual Current gender identity: Male Physical Exam 2 Const: COMMON NORMALS: no acute distress, patient oriented x3 and healthy appearing HENMT: COMMON NORMALS: normocephalic and atraumatic HEAD & SCALP: n ormocephalic and atraumatic Eye: COMMON NORMALS: conjunctivae normal CONJUNCTIVA: Yes conjunctivae normal Neck/C-Spine: COMMON NORMALS: full ROM and supple Chest: COMMONS NORMALS: normal inspection of the chest and normal palpation of entire chest wall Resp: COMMON NORMALS: normal respiratory effort Cardio: COMMON NORMALS: regular rate, regular rhythm and No murmurs present (Cardio) RATE: regular rate RHYTHM: regular rhythm Extremity: COMMON NORMALS: normal to inspection and full ROM Neuro: COMMON NORMALS: patient oriented x3, moves all extremities and no focal motor deficits Psych: COMMON NORMALS: mental status grossly normal, Normal thought process present and cooperative THOUGHT PROCESS: Normal thought process present Skin: COMMON NORMALS: no rashes or lesions noted and no wounds GENERAL SKIN EXAM: no rashes or lesions noted Course 2 Vital Signs: Vital signs: Vital Signs Temperature 98.2 F 08/21/24 10:52 Pulse Rate 97 08/21/24 10:52 Respiratory Rate 17 08/21/24 10:52 Blood Pressure 119/71 08/21/24 10:52 Pulse Oximetry 95 08/21/24 10:52 Oxygen Delivery Me thod Room Air 08/21/24 10:52 MDM - Psych Medical Decision Making Patient presents here with suicidal statements he made his and mother place and fell affidavit and did place him on 96-hour hold spoke to psychiatrist will admit at this time. Medical Records I reviewed the patient's medical records. Lab Data I reviewed the patient's lab results. 08/21/24 11:18 08/21/24 11:18 Laboratory Results WBC 4.38 10^3/uL (3.29-11.43) 08/21/24 11:18 RBC 4.06 10^6/uL (3.85-5.65) 08/21/24 11:18 Hgb 13.00 g/dL (11.27-16.99) 08/21/24 11:18 Hct 37.9 % (37-53) 08/21/24 11:18 MCV 93.3 fl (82-101) 08/21/24 11:18 MCH 32.0 pg (27-33) 08/21/24 11:18 MCHC 34.3 g/dL (30-55) 08/21/24 11:18 RDW 12.8 % (12.1-15.1) 08/21/24 11:18 Plt Count 113 10^3/cmm (157-399) L 08/21/24 11:18 MPV 11.1 fL (7.4-10.4) H 08/21/24 11:18 Neut % (Auto) 48.2 % 08/21/24 11:18 Lymph % (Auto) 33.8 % 08/21/24 11:18 [place] % (Auto) 11.6 % 08/21/24 11:18 Eos % (Auto) 5.3 % 08/21/24 11:18 Baso % (Auto) 0.9 % 08/21/24 11:18 Neut # (Auto) 2.11 10^3/uL (1.8-7.7) 08/21/24 11:18 Lymph # (Auto) 1.5 10^3/uL (0.8-4.8) 08/21/24 11:18 [place] # (Auto) 0.5 10^3/uL (0.2-0.9) 08/21/24 11:18 Eos # (Auto) 0.2 10^3/uL (0.0-0.8) 08/21/24 11:18 Baso # (Auto) 0.0 10^3/uL (0.0-0.1) 08/21/24 11:18 Nucleated RBC % (auto) 0 % 08/21/24 11:18 Nucleated RBCs # 0.0 /100WBC 08/21/24 11:18 All radiology interpretation(s) finalized by discharge Discharge Plan Discharge Patient Disposition: Admitted As Inpatient Clinical Impression: Suicidal ideation Condition: Stable Coding Level of Care Code ED Rn Licensed Practical for Kilo Lange
[2024-08-21 11:25] LABS: Hematocrit 37.9 % (37-53); Hemoglobin 13.00 g/dL (11.27-16.99); Mean Corpuscular HGB Conc 34.3 g/dL (30-55); Mean Corpuscular Hemoglobin 32.0 pg (27-33); Mean Corpuscular Volume 93.3 fl (82-101); Nucleated Red Blood Cells % 0 %; Platelet Count 113 10^3/cmm (157-399); Red Blood Count 4.06 10^6/uL (3.85-5.65); White Blood Count 4.38 10^3/uL (3.29-11.43)
--- OUTSIDE RECORDS SUMMARY | 2024-08-21 11:33 | XMS_ITS | Clinical Summary ---
Author Organization [facility] Address [facility] [place] [address] Care Team Providers Care Commercial Real Estate Sales Manager Name Role Phone Unavailable Primary Care Provider Unavailabl e Allergies Active Allergy Reactions Criticality Noted Date Comments Penicillins Unknown 12/18/2019 Medications buPROPion HCL (WELLBUTRIN XL) 150 mg Extended Release 24 hour tablet Take 150 mg by mouth daily in the morning. 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 Gender Identity Not on file Sexual Orientation Not on file Last Filed Vital Signs Vital Sign Reading Time Taken Comments Blood Pressure 138/70 12/18/2019 12:59 PM CDT Pulse 59 12/18/2019 12:59 PM CDT Temperature - - Respiratory Rate - - Oxygen Saturation - - Inhaled Oxygen Concentration - - Weight 71.2 kg (157 lb) 12/18/2019 12:59 PM CDT Height 177.8 cm (5' 10 ) 12/18/2019 12:59 PM CDT Body Mass Index 22.53 12/18/2019 12:59 PM CDT Plan of Treatment Health Maintenance Due Date Last Done Comments DTAP/TDAP/TD VACCINES (1 - Tdap) 2014 HEPATITIS B VACCINES (1 of 3 - 19+ 3-dose series) 2014 INFLUENZA VACCINE (#1) 2023 HPV VACCINES Aged Out No longer eligi ble based on patient's age to complete this topic Insurance MED PAY
--- OUTSIDE RECORDS SUMMARY | 2024-08-21 11:33 | XMS_ITS | Patient Health Record ---
Author Organization [facility] Address [address] [place], [place] [id number] Care Team Providers Care Clinical Exercise Physiologist Name Role Phone Florence SANFORD, Cristiane Primary Care Provider Judi Arriola MD, Constantino Unavailable [phone] Allergies Allergen (clinical drug ingredient) Drug/Non Drug Allergy documented on EMR Reaction Allergy Type Onset Date Status prednisone prednisone pain all over Drug Allergy A ctive Humira swelling Drug Allergy Active penicillin Unknown Drug Allergy Active Reason For Referral No Information Medications Medication SIG (Take, Route, Frequency, Duration) Notes Start Date End Date Status ibuprofen 200 mg 3 tabs po orally Q6H prn pain; take with food Active Tylenol Extra Strength 500 mg 2 tabs po orally Q6H prn pain; take with food Active Social History Tobacco Use: Social History Observation Description Date Details (start date - stop date) Current Smoker NA - NA alcohol Question Answer Notes Did you have a drink contain ing alcohol in the past year? Yes How often did you have a dri nk containing alcohol in the past year? Monthly or less (1 point) How many drinks did you have on a typical day when you were drinking in the past year? 1 or 2 (0 points) How often did you have six o r more drinks on one occasion in the past year? Never (0 points) Points 1 Interpretation Negative Tobacco use: Question Answer Notes : current smoker Are you interested in quitting? Ready to quit How many cigarettes a day do you smoke? 6-10 How often do you smoke cigarettes? every day How soon after you wake up do you smoke your fir st cigarette? after 60 min When did you start smoking? 4 ye ars Problems Problem Type SNOMED Code ICD Code Onset Dates Problem Status W/U Status Risk Notes Problem Complaining of a back symptom (807381630) Facet arthropathy/sy ndrome (724.8) Active confirmed Problem Solitary sacroiliitis (478241518) Sacroiliitis, not elsewhere classified (M46.1) Active confirmed Problem Low back pain (794183585) Low back pain (M54.5) Active confirmed Problem Lumbosacral spondylosis without myelopathy (04397444) Spondylosis without myelopathy or radiculopathy, lumbar region (M47.816) Active confirmed Problem Anxiety disorder (597468293) Other specified anxiety disorders (F41.8) Active confirmed Problem Hypersomnia (10156887) Hypersomnia, unspecified (G47.10) Active confirmed Problem Acquired spondylolisthesis (260256038) Spondylolysis, lumbosacral region (M43.07) Active confirmed Problem Myalgia (53760889) Myalgia (M79.1) Active confirmed Problem Pain in limb (93506502) Pain in right thigh (M79.651) Active confirmed Problem Pain in limb (98748667) Pain in left thigh (M79.652) Active confirmed Problem Long-term current use of drug therapy (405937395) Other fci (current) drug therapy (Z79.899) Active confirmed Plan Of Treatment No Information Medical (General) History Medical History History ICD Code Low back pain, intermittent Thigh pain, bilateral Rheumatoid arthritis Ulcerative colitis Renal stone(s) Fibromyositis Surgical History Surgery Date(Month/Year) Colonoscopy, 2016 Hospitalization History Reason Date(Month/Year) Ulcerative colitis, 2017
--- OUTSIDE RECORDS SUMMARY | 2024-08-21 11:34 | XMS_ITS | Patient Health Record ---
Author Organization [facility] Address [address] [place] [address] Support Name Relationship Address Phone Aj [place] Guarantor Unknown [phone] Reason For Referral No Information Plan Of Treatment No Information
--- OUTSIDE RECORDS SUMMARY | 2024-08-21 11:34 | XMS_ITS | Encounter Summary ---
Author Organization [facility] Address [address] [place] [address] Care Team Providers Care Shock Absorber Installer Name Role Phone Unavailable Primary Care Provider Unavailabl e Encounter Details Date Type Department Care Team (Late st Contact Info) Description 08/15/2024 External Device Data [facility]STRACTION Provider, Abstract NO ADDRESS ON FILE Social History Tobacco Use Types Packs/Day Years Used Date Smoking Tobacco: Former Cigarettes Q uit: 08/24/2019 Smokeless Tobacco: Never Alcohol Use Standard Drinks/Week Comments Yes 0 (1 standard drink = 0.6 oz pur e alcohol) Sex and Gender Information Value Date Recorded Sex Assigned at Not on file 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
--- OUTSIDE RECORDS SUMMARY | 2024-08-21 11:34 | XMS_ITS | Clinical Summary ---
Author Organization [facility] Address [address] [facility] Attn: Epic Prelude ADT ZELDA CHRISTIANSON [id number] Care Team Providers Care Customer Servicer Name Role Phone Unavailable Primary Care Provider Unavailabl e Allergies Active Allergy Reactions Criticality Noted Date Comments Penicillins Unknown 12/18/2019 Medications cholecalciferol 1,250 mcg (50,000 unit) Capsule TAKE ONE CAPSULE BY MOUTH DAILY FOR VITAMIN DEFICIENCY 2 Active loratadine (CLARITIN) 10 mg tablet TAKE 1 TABLET BY MOUTH IN THE MORNING NEEDED FOR ALLERGY SYMPTOMS 2 Active methylPREDNISol one (MEDROL) 4 mg tablet Take 4 mg by mouth daily. 2 Active diphenhydrAMINE (BENADRYL) 25 mg tablet Take 25 mg by mouth every 6 hours as needed for Allergies. Active Active Problems Problem Noted Date Diagnosed Date Ulcerative colitis 06/24/2021 Encounters Date Type Department Care Team Description 08/15/2024 External Device Data [facility]STRACTION Provider, Abstract 07/19/2024 External Device Data [facility] Provider, Abstract 07/19/2024 External Device Data [facility] Provider, Abstract 07/03/2024 External Device Data [facility] Provider, Abstract 06/19/2024 External Device Data [facility] Provider, Abstract 06/19/2024 External Device Data [facility] Provider, Abstract 06/19/2024 External Device Data [facility] Provider, Abstract 05/29/2024 2:55 AM CDT - 05/29/2024 11:59 PM CDT Hospital Encounter [facility] [address] [place] [address] Ambulance, [facility] Discharge Disposition: Home or Self Care from Last 3 Months Family History Medical History Relation Name Comments Colon Cancer Neg Hx Social History Tobacco Use Types Packs/Day Years Used Date Smoking Tobacco: Former Cigarettes Q uit: 08/24/2019 Smokeless Tobacco: Never Alcohol Use Standard Drinks/Week Comments Yes 0 (1 standard drink = 0.6 oz pur e alcohol) Sex and Gender Information Value Date Recorded Sex Assigned at Not on file Legal Sex Male 11:12 PM [employer]IED [employer] Gender Identity Not on file Sexual Orientation Not on file Last Filed Vital Signs Vital Sign Reading Time Taken Comments Blood Pressure 112/71 06/24/2021 3:08 PM CDT Pulse 82 06/24/2021 3:08 PM CDT Temperature - - Respiratory Rate 16 06/24/2021 3:08 PM CDT Oxygen Saturation 100% 06/24/2021 3:08 PM CDT Inhaled Oxygen Concentration - - Weight 72.6 kg (160 lb) 06/18/2021 10:30 AM CDT Height 177.8 cm (5' 10 ) 06/18/2021 10:30 AM CDT Body Mass Index 22.96 06/18/2021 10:30 AM CDT Plan of Treatment Health Maintenance Due Date Last Done Comments DTAP/TDAP/TD VACCINES (1 - Tdap) 2014 INFLUENZA VACCINE (#1) 2023 HEPATITIS B VACCINES Completed 1995, 1995, 1995 HPV VACCINES Aged Out No longer eligi ble based on patient's age to complete this topic Insurance [facility] MEDICAID Advance Directives For more information, please contact: [phone] * Full Code (Latest Code Status on File) Date Activated Date Inactivated Comments 06/24/2021 2:21 PM 06/24/2021 5:20 PM
[2024-08-21 11:39] LABS: Alanine Aminotransferase 29 U/L (0-41); Albumin Level 4.0 g/dL (3.5-5.2); Alcohol Level 46 mg/dL (0-10); Alkaline Phosphatase 84 U/L (40-130); Anion Gap 16.1 (5-19); Aspartate Amino Transferase 35 U/L (0-40); Blood Urea Nitrogen 14 mg/dL (6-20); Calcium 9.0 mg/dL (8.5-10.5); Carbon Dioxide 27 mmol/L (22-29); Chloride 101 mmol/L (98-107); Creatinine Clr Calc Pharmacy 123.1884; Globulin 2.7 g/dL (1.3-4.6); Glucose 90 mg/dL (65-115); Osmolality Calculated 290 mOsm/kg (285-295); Potassium 4.1 mmol/L (3.5-5.1); Sodium 140 mmol/L (136-145); Total Protein 6.7 g/dL (6.6-8.7)
[2024-08-21 11:48] LABS: Acetaminophen < 5.0 ug/mL (10-30); Salicylate < 0.3 mg/dL (3-10)
[2024-08-21 11:55] LABS: PCP Screen Urine Negative (Negative)
[2024-08-21 12:09] VITALS: BP 131/80; PULSE 94; RESP 18; TEMP 36.7; O2SAT 96
[2024-08-21 14:00] VITALS: BP 128/83; PULSE 94; RESP 18; TEMP 36.6; O2SAT 96
--- NOTE | 2024-08-21 14:18 | PC.NURSE ---
96 hr rights reviewed with pt @1600 with assistance of [facility] chairman and chief executive officer José Drummond. All education reviewed at this time. Pt verbalized understanding to hold parameters. Pt copy was left @bedside with pt. Pt declined wanting a drink or snack when asked by this HS. No further needs at this time.
--- NOTE | 2024-08-21 14:43 | PC.ADMIT ---
[email or web address] Admission Note:Pt was brought into the ER by JOELLE for anger outburst. Pt had a BAL of 46 and UDS was still pending. He denies SI/HI. Pt states that he got into a fight with his , she called his mom and they decided together to call the stitch welder. He states that they are accusing him of cheeking his meds. He made no threats. Pt was calm and cooperative during assessment. The patient,Aj York,29 y/o, was given written information regarding hospital policies, unit procedures and contact persons. Patient's smoking status: current every day smoker. Vital Signs - 8 hr 08/21/24 10:52 08/21/24 12:09 08/21/24 12:13 Temperature 98.2 F 98.0 F Pulse Rate 97 94 Respiratory Rate 17 18 Blood Pressure 119/71 131/80 Pulse Oximetry 95 96 Oxygen Delivery Method Room Air Room Air 08/21/24 14:00 Temperature 97.9 F Pulse Rate 94 Respiratory Rate 18 Blood Pressure 128/83 Pulse Oximetry 96 Oxygen Delivery Method
[2024-08-21 19:45] VITALS: BP 113/70; PULSE 75; RESP 17; TEMP 36.6; O2SAT 96
[2024-08-22 06:00] VITALS: BP 114/65; PULSE 66; RESP 18; TEMP 36.7; O2SAT 96
[2024-08-22 10:03] VITALS: RESP 17; O2SAT 98
--- NOTE | 2024-08-22 10:22 | W.PM.NPUH&PS ---
Providers/Chief Complaint Admitting Physician: González Szymanski MD Primary Care Provider: Javier Potter MD Chief Complaint: MHE HPI NPU History of Present Illness Aj York is a 29 year old male who presented to the emergency department with the following report: Chief Complaint: Psychiatric Symptoms Stated Complaint: MHE Time Seen by Provider: 08/21/24 10:53 Source: patient and police Mode of arrival: ambulatory Limitations: no limitations History of Present Illness: 29-year-old male is here with police. Patient states he has been argument with his per police he had been making suicidal statements and has been using meth and alcohol. Patient here denies having SI or HI at this time patient has affidavit filled out by police. Associated symptoms: Reports depression. He was admitted to the neuropsychiatric unit for definitive treatment of those issues. He presents today reporting that he has been doing fine. He has a guardian and was discharged from here April of this year with a plan to go to sober living for likely an extended period of time. An excerpt of that discharge summary is included below for context and the fact that there have been no substantive changes. He returns with a near identical presentation which is always that he is doing fine and there is really no need for him to be here but he cannot explain how every time he comes his sobriety is fine but his drug screen is positive for substances. He reports that his provided the alcohol to him which often is his report. She is his guardian along with his mother and he reports they were in a fight and that she was the one that made him come in. However researching the situation identified that he was brought in by the police and the police actually filled out affidavits secondary to their observed behavior. He identified that he had drank a couple days ago but he had a positive UDS for cannabis and amphetamines as well as having a blood alcohol 46. We talked about how unlikely it would be that he had a couple of drinks 2 days ago and his blood alcohol would not be zeroed out yet. We also discussed that once again as sober as he reports being he still has a positive UDS for both cannabis and methamphetamines. Reportedly his guardians are looking for residential treatment given his continued inability to be managed outside of the hospital. We discussed the risk, benefits and alternatives of restarting his current medications, talking to his guardians and making a plan with them about what is next and he understood and agreed to proceed as is documented in this note. Per his 05/27/2024 [facility] inpatient psychiatric discharge summary: Discharge Diagnosis (1) Bipolar 2 disorder: Status: Acute (2) Suicidal ideation: Status: Inactive (3) Opioid dependence: Status: Acute Qualifiers: Substance use status: with opioid-induced mood disorder Qualified Code(s): F11.24 - Opioid dependence with opioid-induced mood disorder (4) ADD (attention deficit disorder): Status: Acute Qualifiers: Attention deficit-hyperactivity disorder type: predominantly inattentive Hyperactivity presence: present Qualified Code(s): F90.0 - Attention-deficit hyperactivity disorder, predominantly inattentive type Permanent problem details: Diagnosed at age of 8 yr old (5) Anxiety and depression: Status: Resolved (6) Methamphetamine use disorder, severe: Status: Resolved (7) Alcohol use disorder, severe, dependence: Status: Resolved Reason for Visit Reason for Visit: drunk, possible 96 Brief History: History of Present Illness Aj York is a 29 year old male who presented to the emergency department with the following report: Chief Complaint: Psychiatric Symptoms Stated Complaint: drunk, possible 96 Time Seen by Provider: 05/20/24 18:04 History of Present Illness: 29-year-old male gentleman known to the neuropsychiatric unit at this facility. He presents with law enforcement, and his guardian mother following an episode of intoxication today, and lying down in the middle of the road. The patient reported this to his and was found by her as such. He was recently admitted to the NPU, and discharged to an outpatient rehabilitation center for substance abuse, mainly alcohol and methamphetamine. He reportedly left that facility twice a day, became intoxicated, and the above happened. Patient's guardian mother is also interviewed. She requests that because of his earlier actions, he be admitted for psychiatric evaluation. He was admitted to the neuropsychiatric unit for definitive treatment of those issues. He is known to [facility] through previous services with significant inpatient services since September of last year. His last stay included with him being placed in guardianship and he had gone to a rehab he reports. An excerpt from his last discharge summary from earlier this month is included below for context and the fact that there have been no substantive changes. He reports that he went to this rehab and they had rules that you could not go by yourself places and you could go on walks and he reports that taking walks it is a #1 way to cope with stress. So he reports that he started to go for a walk in a had him come back and he went back. He reports that yesterday he went for a walk and he did not return as they requested. He reports he then got 3 shots and drank them and then his mother reportedly found him and he would not go back to the rehab and there was a conflict that led to him being brought here. He could not give any explanation for why if he is as functional as he says he is that he cannot follow some rules that he does not necessarily like for 30 days to get to a better place. He continued to report that somehow things would miraculously get better if he moved in with his and continue to focus on his mother being the obstacle for him getting employment and somehow was blaming everyone else for his difficulty with sobriety. We agreed that we would restart his medication and get some collateral information and go from there. Per his 05/10/2024 [facility] inpatient psychiatric discharge summary: Diagnoses at Discharge Discharge Diagnosis (1) Methamphetamine-induced mood disorder: Status: Acute (2) Bipolar 2 disorder: Status: Inactive (3) Suicidal ideation: Status: Inactive (4) Opioid dependence: Status: Acute Qualifiers: Substance use status: with opioid-induced mood disorder Qualified Code(s): F11.24 - Opioid dependence with opioid-induced mood disorder (5) ADD (attention deficit disorder): Status: Inactive Qualifiers: Hyperactivity presence: present Attention deficit-hyperactivity disorder type: predominantly inattentive Qualified Code(s): F90.0 - Attention-deficit hyperactivity disorder, predominantly inattentive type Permanent problem details: Diagnosed at age of 8 yr old (6) Anxiety and depression: Status: Resolved (7) Methamphetamine use disorder, severe: Status: Acute (8) Alcohol use disorder, severe, dependence: Status: Acute Reason for Visit Reason for Visit: 96 Brief History: History of Present Illness Aj York is a 29 year old male who presented to the emergency department with the following report: Chief Complaint: Psychiatric Symptoms Stated Complaint: 96 Time Seen by Provider: 04/27/24 13:20 Source: patient and police Mode of arrival: ambulatory Limitations: no limitations History of Present Illness: Patient is a 29-year-old male who is brought to the emergency department on a 96-hour hold. Patient arrives here with 6+ affidavits from friends/family stating their concerns. Patient has been seen here in our emergency department and admitted to NPU several times. According to some of the affidavits he has recently jumped out of a moving car, has been trespassing on others' property, has been very paranoid, has made suicidal and homicidal threats, has erratic behavior, has a history of methamphetamine and alcohol abuse, etc. Duration: constant History of same: Yes Exacerbating factors: alcohol and drug use Associated symptoms: Reports depression; Deny homicidal ideation or suicidal ideation Treatments prior to arrival: placed on mental health hold. He was admitted to the neuropsychiatric unit for definitive treatment of those issues. He is known to [facility] through multiple inpatient services with this being the fourth hospitalization since the end of September 2023. With 2 more hospitalizations going back to May 2022 and this is the second 1 this year. He also has had some inpatient services through [facility] but an excerpt of his last inpatient hospitalization from February of this year is included below for context and the fact that there is no substantive changes. He is on a 96-hour hold with multiple affidavits. There was also some information identifying that he has a guardianship hearing very soon. It appears his mother is filing for guardianship. He is known to this specification writer personally and presents today reporting that he felt he had been doing okay. He reports that he had been going to [facility] for his methadone and following up with outside providers for his mental health medications. He reports that unfortunately his living arrangement had been challenging because no one would allow him to stay with them. He reports that he had been living with his dad most recently and that he had left his dad's house to go to his mom's house which is about a mile away and walking distance. He reports that outside of that he had been basically couch surfing. He reports that he has not been working and attributed that to the fact that he could not get dependable transportation to interviews and things of the like. He reports that his relationship with his is still challenging but reports that the night before he came in he had spent some time with her as she had come over to visit him and brought some shots. He reports that after he took those and slept that off he went over to his mom's and was approached by the police on his way back to his father's house. He reports that he has cannabis use and that he had not been using methamphetamine as much. However we discussed that his UDS was positive for methamphetamines so his report of last usage over 2 weeks ago was fairly unlikely. He denied really understanding why he is here because he thought he had been doing fairly well. We discussed this specification writer reviewing his old to determine the need for the hospitalization. However he reports that he knew about that hearing for his guardianship but that possibly his mother was saying she was not going to follow through with that. He also reported that he needed to get down to [place] the beginning of the week for some of an uncle. But he did not seem to know a lot of information about the or when his might be. We discussed the risks, benefits and alternatives of continuing his current medications while we figure out the circumstances and take it a day at a time and he understood and agreed to proceed as is documented in this note. Per his 03/14/2024 [facility] inpatient psychiatric discharge summary: Discharge Diagnosis (1) Bipolar 2 disorder: Status: Inactive (2) Suicidal ideation: Status: Inactive (3) Opioid dependence: Status: Acute Qualifiers: Substance use status: with opioid-induced mood disorder Qualified Code(s): F11.24 - Opioid dependence with opioid-induced mood disorder (4) ADD (attention deficit disorder): Status: Acute Qualifiers: Attention deficit-hyperactivity disorder type: predominantly inattentive Hyperactivity presence: present Qualified Code(s): F90.0 - Attention-deficit hyperactivity disorder, predominantly inattentive type Permanent problem details: Diagnosed at age of 8 yr old (5) Anxiety and depression: Status: Acute (6) Methamphetamine use disorder, severe: Status: Acute (7) Alcohol use disorder, severe, dependence: Status: Acute Reason for Visit Reason for Visit: 96 Brief History: History of Present Illness Aj York is a 28 year old male who presented to the emergency department with the following report: Chief Complaint: Psychiatric Symptoms Stated Complaint: 96 Time Seen by Provider: 03/09/24 18:02 Source: patient and police Limitations: no limitations History of Present Illness: 28-year-old male who is here with police under 96-hour hold per police patient has been using methamphetamine family placed on a 96-hour hold as he is been having erratic behaviors, hallucinations patient here denies SI or HI but does appear to be under the influince of meth Associated symptoms: Reports auditory hallucinations, delusions and depression. He was admitted to the neuropsychiatric unit for definitive treatment of those issues. He is known to [facility] psychiatric services through inpatient treatment and he has had some follow-up with family medicine where he was getting ADHD medication as prescribed which she reports was successful. However he reports his PCP retired and he has been unable to get restarted on his ADHD medications. He reports that this visit is much like others where he is, and after conflict with his and/or mother. He reports that this will happen this time and that he once again does not feel that he really needs to be in the hospital but that his mother was worried about him and ended up asking for a wellness check which spiraled into him being on this hold. He reports he has been having significant difficulty with his . He reports that recently they had and then he came back after a few months and they were trying to work through things but his mother was getting involved in a way that he reported was not helpful. He reports there may have been issues with his messing with his medications. He reports that his conflicts with these 2 women led him to leaving his house and trying to get some time alone. He reports that he returned with a friend to get some stuff but his was too [id number] so he left. He reports that he does not feel suicidal or feel like there were any problems other than maybe being off of his psychiatric medication and also struggling to make it to his methadone appointments which is led to them talking about discontinuing his services. He reports that he is open to working with the social work team to try to get a sense of what the best direction to go in to find out where the methadone clinic feels like they should be heading for treatment moving forward. An excerpt of his last inpatient hospitalization is included below for context and the fact that he reports no substantive changes: Per his 01/27/2024 [facility] inpatient psychiatric discharge summary: Discharge Diagnosis (1) Bipolar 2 disorder: Status: Inactive (2) Suicidal ideation: Status: Inactive (3) Opioid dependence: Status: Acute Qualifiers: Substance use status: with opioid-induced mood disorder Qualified Code(s): F11.24 - Opioid dependence with opioid-induced mood disorder (4) ADD (attention deficit disorder): Status: Acute Qualifiers: Hyperactivity presence: present Attention deficit-hyperactivity disorder type: predominantly inattentive Qualified Code(s): F90.0 - Attention-deficit hyperactivity disorder, predominantly inattentive type Permanent problem details: Diagnosed at age of 8 yr old (5) Anxiety and depression: Status: Acute (6) Methamphetamine use disorder, severe: Status: Acute (7) Alcohol use disorder, severe, dependence: Status: Acute Reason for Visit Reason for Visit: MHE Brief History: History of Present Illness Aj York is a 28 year old male who presented to the emergency room via ambulance with a blood alcohol level of 183, positive for amphetamines and positive for marijuana. The patient was accompanied by police and the affidavit written by the patient's ex- had suggested that the patient was making threats to kill himself. She had stated that the patient had told her that he wanted to and hoped that he could torture the patient's ex-. The patient had according to the affidavit been declining with continued active drug use and increasingly disturbing behavior. He had been increasingly suspicious that others were out to harm him and had recently acknowledged having been homeless for the past few days. The patient had reported that he had recently lost his job and had continued to use alcohol and methamphetamine. He reports that he has not been compliant with his psychiatric medications. Patient had minimized having any problems with depression or anxiety. He had admitted to continued use of alcohol and meth amphetamine use despite adverse consequences. He reports that he had previously been on methadone but states that he had not been able to get back to the methadone clinic for the past week and was now experiencing withdrawal symptoms. The patient had reported no prior history of inpatient substance abuse treatment. The patient had accused his ex- of kicking him out of the house without any close although the affidavit had stated that Aj had appeared confused and had not remembered that he had moved out several months ago without having any close they are to wear. The patient had admitted that he had been having increased problems with his memory and concentration. He had reported some recent sleep continuity disruption. Inpatient psychiatric history: He reports at least 5 hospitalizations with a history of suicide attempts and self-injurious behavior stating he had been hospitalized for the first time at the age of 15.He reports history of multiple suicide attempts. Outpatient psychiatric history: He had reported receiving psychotherapy at the behavioral health clinic weekly in the past Previous diagnoses include bipolar disorder opiate dependence ,panic disorder, methamphetamine use disorder, ADHD CT, Drug and alcohol history: He had reported a 4-year history of opiate abuse on and off beginning at the age of 15 or 16. He also endorsed a history of alcohol abuse that appeared more significant beginning at the age of 16 and reports no history of alcohol withdrawal symptoms. He also reported chronic use of marijuana since the age of 14. He has no history of inpatient or outpatient drug treatment. Allergies: Penicillin Surgical history: Colonoscopy x2 Medical history :history of juvenile rheumatoid arthritis history of headaches, history of vitamin D deficiency, history of questionable ulcerative colitis, history of peripheral neuropathy, Family Psychiatric History: Bipolar disorder-paternal side of family, Legal History: unknown Excerpt from NPU Discharge Summary on 10/24/23 Discharge Diagnosis (1) Bipolar 2 disorder: Status: Acute (2) Suicidal ideation: Status: Inactive (3) Opioid dependence: Status: Acute Qualifiers: Substance use status: with opioid-induced mood disorder Qualified Code(s): F11.24 - Opioid dependence with opioid-induced mood disorder (4) ADD (attention deficit disorder): Status: Acute Qualifiers: Attention deficit-hyperactivity disorder type: predominantly inattentive Hyperactivity presence: present Qualified Code(s): F90.0 - Attention-deficit hyperactivity disorder, predominantly inattentive type Permanent problem details: Diagnosed at age of 8 yr old (5) Anxiety and depression: Status: Acute (6) Methamphetamine use disorder, severe: Status: Acute (7) Alcohol use disorder, severe, dependence: Status: Acute Reason for Visit ETOH/ SI Brief History: History of Present Illness Aj York is a 28 year old male who presented to the emergency department with the following report: Chief Complaint: Psychiatric Symptoms Stated Complaint: ETOH/ SI Time Seen by Provider: 10/19/23 13:40 Source: patient and EMS Mode of arrival: EMS Limitations: no limitations History of Present Illness: 28-year-old male who is here with possible ascites. Patient is intoxicated states has been drinking since 11 last night EMS states his had said he made suicidal statements to her he denies he states he is not suicidal he states that they have been fighting he denies SI at this time. He is visibly intoxicated at this time he has no other complaints. He was admitted to the neuropsychiatric unit for definitive treatment of those issues. He is known to inpatient and outpatient services here at [facility]. His last inpatient stay was in January of last year and an excerpt of that discharge summary is included below for context. He presented today reporting that he has been struggling since he was here last. He reports that his addiction is active with alcohol use, methamphetamine use and other substances. He reports that despite that and him not taking any of his psychiatric medications right now he feels like he had not been doing horribly and feels that the 96-hour hold was a stretch of the truth. We discussed the importance of him getting back on his medications and working on his sobriety. He reported a plan to go to one of his supports named Frankie and stay with him. We discussed him getting into a sober living facility and he was talking about going to [facility] first. We challenges whether that made sense given his situation. There have been recent issues of violence with his ex and there is a restraining order against him. Additionally there is some custody issues that are pressing. He reports that he is having depression and he is having anxiety and stress but he thinks that a lot of his problems are situational and that may be going to a different place like [facility] will allow him to do what he is done in the past which is to get sober on his own. We discussed looking at his medications and and considering the risks, benefits and alternatives of restarting any of them or some of them and he understood and agreed to proceed as is documented in this note. For his 02/25/2023 [facility] inpatient psychiatric discharge summary: Discharge Diagnosis (1) Bipolar 2 disorder: Status: Acute (2) Suicidal ideation: Status: Inactive (3) Opioid dependence: Status: Acute (4) ADD (attention deficit disorder): Status: Acute Permanent problem details: Diagnosed at age of 8 yr old (5) Anxiety and depression: Status: Acute Reason for Visit Reason for Visit: SI Brief History: History of Present Illness Aj York is a 27 year old male who presented to the emergency department with the following report: Chief Complaint: Psychiatric Symptoms Stated Complaint: SI Time Seen by Provider: 02/22/23 19:36 Source: patient Mode of arrival: ambulatory Limitations: no limitations History of Present Illness: 27-year-old male is here with his mother she states that he has a history of bipolar has not been taking his meds for months and has been on a decline. States that she got a call from his friend that he was stating that he is going to kill himself. Patient states has been drinking tonight and does not remember this but does admit he has not been taking his meds and has been worsening. Associated symptoms: Reports depression and suicidal ideation. He was admitted to the neuropsychiatric unit for the treatment of those issues. He presented today reporting that he feels good and that is all it is understanding. Did not seem to be a reliable historian that he initially reported having no recollection of why anyone would suggest there was suicidality but eventually admitted that his friend identified multiple lethal text messages and finally endorsed that he was drunk while sending these messages. We discussed real concern about him being prescribed methadone, immediate release Ritalin, Klonopin, smoking cigarettes and Cannabis and getting drunk. We discussed concerns that he does not see a psychiatrist and reported that he had some disagreement with [facility] [place]. Discussed me having concerns about this regimen. He had limited insight into the fact that all his solutions seem to be controlled substances. An excerpt of his May 2022 short stay is included for history and absence of substantive changes except Methadone instead of soboxone. He ultimately felt hospitalization not warranted and wanted to leave and we discussed us doing our due diligence on lethality on [address] hold. We discussed Dr. Pillai, whom he knows being here tomorrow to examine the situation and consider discharge and other decisions. Per his 06/09/2022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
[2024-08-22 14:00] VITALS: BP 146/96; PULSE 95; RESP 18; TEMP 36.8; O2SAT 95
[2024-08-22 20:48] VITALS: BP 107/66; PULSE 63; RESP 18; TEMP 36.6; O2SAT 96
[2024-08-23 06:00] VITALS: BP 108/61; PULSE 76; RESP 16; TEMP 36.6; O2SAT 95
--- NOTE | 2024-08-23 13:26 | P.NPUPN_ITS ---
Subjective NPU 2 Subjective: Patient presented today reporting that things are going fine. He reported that he was doing well but could not give no explanation for why he has 3 different abnormalities in his BAL and UDS. Then he reported that his who is his guardian was giving him the alcohol and that his mother was giving him marijuana. He reported that he has no idea how the methamphetamine got in his system. He was bizarre in his behavior per staff reports and direct observation as he was seen walking in the page with a very over exaggerated striped that has never been seen before and all his hospitalizations. He denied any side effects of his medication. Mental Status Exam 2 MSE Comments: This is a slender white male in hospital scrubs with limited grooming and eye contact. No abnormal movements except for mild psychomotor retardation. Cooperative with exam in mild distress. Speech was slightly decreased rate and volume. Mood described as I am fine, I do not really feel I need to be here, affect subdued. Thought process organized. Thought content: Patient denied suicidal or homicidal ideation, there were no delusions reported or noted, he denied auditory or visual hallucinations. Attention and concentration appeared intact and memory was somewhat unreliable but likely intentionally so but none were formally tested. He is alert and oriented x 3. Insight and judgment are limited and impulse control is impaired. Vitals/I&O/Wt Last Vital Signs Temp 97.8 F 08/23/24 06:00 Pulse 76 08/23/24 06:00 Resp 16 08/23/24 06:00 BP 108/61 08/23/24 06:00 Pulse Ox 95 08/23/24 06:00 O2 Del Method Room Air 08/22/24 06:00 Data NPU 08/21/24 11:18 08/21/24 11:18 A&P Assessment and plan (1) Bipolar 2 disorder: (2) Suicidal ideation: (3) Opioid dependence: (4) ADD (attention deficit disorder): (5) Anxiety and depression: (6) Suicidal ideation: (7) Methamphetamine use disorder, severe: (8) Alcohol use disorder, severe, dependence: (9) Suicidal ideation: Plan Patient is a 29-year-old white male who presents on his sixth hospitalization since September 2023 who has been previously admitted with suicidal ideation with a history of panic disorder, bipolar 2 disorder, ADHD and opioid dependence on methadone with previous history of being treated with Klonopin and Ritalin for reported ADHD. He presents on a guardianship hold as his mother and his who are co-guardians and an affidavit from the police. He reports an argument with his led to this hospitalization but denies a need for said hospitalization. Unlike last time this time UDS was positive for cannabis and amphetamines and his BAL was lower than last time at 46. 1. Encourage individual, group and milieu therapy. 2. Continue every 15 minute checks for safety. 3. Recommend sober living treatment at the highest level of care to which the patient is willing to commit. 4. We will restart medications and evaluate for safety given 96-hour hold. Verify his methadone dose. 5. Obtain collateral information. Talk to his guardian/ and she reports that the reason for the conflict that he got him hospitalized was that he arrived at her place of residence unannounced intoxicated and belligerent and that is how things got started and that he has been being dishonest when talking to people about what is going on and she is clear that she does not provide him alcohol. 6. Work with guardians for appropriate plan. PDMP PDMP Reviewed: Not Reviewed Involuntary Hold Information 2 Hold Status: Legal Status: Active Guardianship 96 Hour Hold: 96 Hour Involuntary Admission: Yes Other Hold: Hold End Date: 03/15/24 Attestations NPU 2 Medical Necessity Statement*: Inpatient hospitalization is medically necessary and the clinically appropriate intervention at this time. We will monitor/initiate medications and make changes as indicated. Likely length of stay is 3-5 days. Coding Level of Care Code Acute Code for [facility] Diagnoses Bipolar 2 disorder F31.81 Suicidal ideation R45.851 Opioid dependence with opioid-induced mood disorder F11.24 Substance use status: with opioid-induced mood disorder Attention deficit hyperactivity disorder (ADHD), predominantly inattentive type F90.0 Attention deficit-hyperactivity disorder type: predominantly inattentive Hyperactivity presence: present Anxiety and depression F41.9; F32.9 Methamphetamine use disorder, severe F15.20 Alcohol use disorder, severe, dependence F10.20
[2024-08-23 14:00] VITALS: BP 116/64; PULSE 71; RESP 16; TEMP 36.6; O2SAT 97
[2024-08-23 19:45] VITALS: BP 113/68; PULSE 88; RESP 17; TEMP 36.7; O2SAT 95
[2024-08-24 06:00] VITALS: BP 98/60; PULSE 56; RESP 18; TEMP 36.6; O2SAT 97
[2024-08-24 09:51] VITALS: RESP 17
[2024-08-24 14:00] VITALS: BP 110/72; PULSE 102; RESP 16; TEMP 36.6; O2SAT 92
--- NOTE | 2024-08-24 15:30 | P.NPUPN_ITS ---
Subjective NPU 2 Subjective: Patient presented today reporting that things are going fine but he continues to deny having any major issues and reports that he is going to fight placement but has no explanation of why and continues to blame everyone else in the situation he is in and denies any need for aggressive treatment reports he just needs to get a job and have his guardians stay out of the way. We discussed that his sobriety once again is the lofton to all of this and he continues to be unable to present without 2-3 substances of abuse in his UDS/BAL. He denied any side effects of his medication. Mental Status Exam 2 MSE Comments: This is a slender white male in hospital scrubs with limited grooming and eye contact. No abnormal movements except for mild psychomotor retardation. Cooperative with exam in mild distress. Speech was slightly decreased rate and volume. Mood described as I am fine, I do not really feel I need to be here, affect subdued. Thought process organized. Thought content: Patient denied suicidal or homicidal ideation, there were no delusions reported or noted, he denied auditory or visual hallucinations. Attention and concentration appeared intact and memory was somewhat unreliable but likely intentionally so but none were formally tested. He is alert and oriented x 3. Insight and judgment are limited and impulse control is impaired. Vitals/I&O/Wt Last Vital Signs Temp 98 F 08/24/24 14:00 Pulse 102 H 08/24/24 14:00 Resp 16 08/24/24 14:00 BP 110/72 08/24/24 14:00 Pulse Ox 92 08/24/24 14:00 O2 Del Method Room Air 08/24/24 14:00 Data NPU 08/21/24 11:18 08/21/24 11:18 A&P Assessment and plan (1) Bipolar 2 disorder: (2) Suicidal ideation: (3) Opioid dependence: (4) ADD (attention deficit disorder): (5) Anxiety and depression: (6) Suicidal ideation: (7) Methamphetamine use disorder, severe: (8) Alcohol use disorder, severe, dependence: (9) Suicidal ideation: Plan Patient is a 29-year-old white male who presents on his sixth hospitalization since September 2023 who has been previously admitted with suicidal ideation with a history of panic disorder, bipolar 2 disorder, ADHD and opioid dependence on methadone with previous history of being treated with Klonopin and Ritalin for reported ADHD. He presents on a guardianship hold as his mother and his who are co-guardians and an affidavit from the police. He reports an argument with his led to this hospitalization but denies a need for said hospitalization. Unlike last time this time UDS was positive for cannabis and amphetamines and his BAL was lower than last time at 46. 1. Encourage individual, group and milieu therapy. 2. Continue every 15 minute checks for safety. 3. Recommend sober living treatment at the highest level of care to which the patient is willing to commit. 4. We will restart medications and evaluate for safety given 96-hour hold. Verify his methadone dose. 5. Obtain collateral information. Talk to his guardian/ and she reports that the reason for the conflict that he got him hospitalized was that he arrived at her place of residence unannounced intoxicated and belligerent and that is how things got started and that he has been being dishonest when talking to people about what is going on and she is clear that she does not provide him alcohol. 6. Work with guardians for appropriate plan. PDMP PDMP Reviewed: Not Reviewed Involuntary Hold Information 2 Hold Status: Legal Status: Active Guardianship 96 Hour Hold: 96 Hour Involuntary Admission: Yes Other Hold: Hold End Date: 03/15/24 Attestations NPU 2 Medical Necessity Statement*: Inpatient hospitalization is medically necessary and the clinically appropriate intervention at this time. We will monitor/initiate medications and make changes as indicated. Likely length of stay is 3-5 days. Coding Level of Care Code Acute Code for [facility] Fwd Diagnoses Bipolar 2 disorder F31.81 Suicidal ideation R45.851 Opioid dependence with opioid-induced mood disorder F11.24 Substance use status: with opioid-induced mood disorder Attention deficit hyperactivity disorder (ADHD), predominantly inattentive type F90.0 Hyperactivity presence: present Attention deficit-hyperactivity disorder type: predominantly inattentive Anxiety and depression F41.9; F32.9 Methamphetamine use disorder, severe F15.20 Alcohol use disorder, severe, dependence F10.20
[2024-08-24 21:27] VITALS: BP 120/82; PULSE 74; RESP 18; TEMP 36.8; O2SAT 94
[2024-08-25 06:00] VITALS: BP 110/76; PULSE 81; RESP 18; TEMP 36.7; O2SAT 96
--- NOTE | 2024-08-25 07:24 | P.NPUPN_ITS ---
Subjective NPU 2 Subjective: Patient presented today reporting that things are okay. He reports that he is doing fine in general and does not think he needs to be here. He continues to make accusations that the problem is that his mother will not really letting her have a job and gets in the way and that his is unable her but he can seem to come to no conclusions about his behaviors that leads to some changes that he needs to make all the changes need to be made by the hospital or this adjusto writer operator or his guardians. He continues to be not want to take responsibility for having 3 different substances in his drug screen when he is supposed to be pursuing sobriety. He denies any side effects to his medication. Mental Status Exam 2 MSE Comments: This is a slender white male in hospital scrubs with limited grooming and eye contact. No abnormal movements except for mild psychomotor agitation with patient being almost inappropriately get issues and kind of bouncing around the unit like he is gleeful. Cooperative with exam in mild distress. Speech was slightly rate and volume. Mood described as I am fine, I do not really feel I need to be here, affect subdued. Thought process organized. Thought content: Patient denied suicidal or homicidal ideation, there were no delusions reported or noted, he denied auditory or visual hallucinations. Attention and concentration appeared intact and memory was somewhat unreliable but likely intentionally so but none were formally tested. He is alert and oriented x 3. Insight and judgment are limited and impulse control is impaired. Vitals/I&O/Wt Last Vital Signs Temp 98.0 F 08/25/24 06:00 Pulse 81 08/25/24 06:00 Resp 18 08/25/24 06:00 BP 110/76 08/25/24 06:00 Pulse Ox 96 08/25/24 06:00 O2 Del Method Room Air 08/24/24 14:00 Data NPU 08/21/24 11:18 08/21/24 11:18 A&P Assessment and plan (1) Bipolar 2 disorder: (2) Suicidal ideation: (3) Opioid dependence: (4) ADD (attention deficit disorder): (5) Anxiety and depression: (6) Suicidal ideation: (7) Methamphetamine use disorder, severe: (8) Alcohol use disorder, severe, dependence: (9) Suicidal ideation: Plan Patient is a 29-year-old white male who presents on his sixth hospitalization since September 2023 who has been previously admitted with suicidal ideation with a history of panic disorder, bipolar 2 disorder, ADHD and opioid dependence on methadone with previous history of being treated with Klonopin and Ritalin for reported ADHD. He presents on a guardianship hold as his mother and his who are co-guardians and an affidavit from the police. He reports an argument with his led to this hospitalization but denies a need for said hospitalization. Unlike last time this time UDS was positive for cannabis and amphetamines and his BAL was lower than last time at 46. 1. Encourage individual, group and milieu therapy. 2. Continue every 15 minute checks for safety. 3. Recommend sober living treatment at the highest level of care to which the patient is willing to commit. 4. We will restart medications and evaluate for safety given 96-hour hold. Verify his methadone dose. 5. Obtain collateral information. Talk to his guardian/ and she reports that the reason for the conflict that he got him hospitalized was that he arrived at her place of residence unannounced intoxicated and belligerent and that is how things got started and that he has been being dishonest when talking to people about what is going on and she is clear that she does not provide him alcohol. 6. Work with guardians for appropriate plan. PDMP PDMP Reviewed: Not Reviewed Involuntary Hold Information 2 Hold Status: Legal Status: Active Guardianship 96 Hour Hold: 96 Hour Involuntary Admission: Yes Other Hold: Hold End Date: 03/15/24 Attestations NPU 2 Medical Necessity Statement*: Inpatient hospitalization is medically necessary and the clinically appropriate intervention at this time. We will monitor/initiate medications and make changes as indicated. Likely length of stay is 3-5 days. Coding Level of Care Code Acute Code for g Fwd Diagnoses Bipolar 2 disorder F31.81 Suicidal ideation R45.851 Opioid dependence with opioid-induced mood disorder F11.24 Substance use status: with opioid-induced mood disorder Attention deficit hyperactivity disorder (ADHD), predominantly inattentive type F90.0 Hyperactivity presence: present Attention deficit-hyperactivity disorder type: predominantly inattentive Anxiety and depression F41.9; F32.9 Methamphetamine use disorder, severe F15.20 Alcohol use disorder, severe, dependence F10.20
[2024-08-25 08:53] VITALS: RESP 16; O2SAT 97
[2024-08-25 11:32] VITALS: RESP 17; O2SAT 97
[2024-08-25 13:42] VITALS: BP 119/73; PULSE 94; RESP 17; TEMP 36.8; O2SAT 96
[2024-08-25 22:00] VITALS: BP 109/70; PULSE 84; RESP 18; TEMP 36.6; O2SAT 95
[2024-08-26 06:00] VITALS: BP 99/63; PULSE 64; RESP 16; TEMP 36.6; O2SAT 98
[2024-08-26 07:43] VITALS: RESP 17; O2SAT 98
[2024-08-26 14:00] VITALS: BP 140/93; PULSE 107; RESP 16; TEMP 36.6; O2SAT 96
--- NOTE | 2024-08-26 15:38 | P.NPUPN_ITS ---
Subjective NPU 2 Subjective: 29-year-old male admitted with suicidal ideation with a history of alcohol abuse, opiate dependence and methamphetamine abuse. The patient appeared compliant on the milieu. He had reported that things were going great. He had stated that he had been thinking about going to a dual diagnosis program when he left here. He had minimized any thoughts of hurting himself or others. Again, the patient reports no need to be here at this time. He continued to express confusion as to why he had come in here despite there being significant evidence of his need for acute hospitalization. He had continued to blame others for his current problems. He had denied any feelings of hopelessness or worthlessness. Patient reports that he needs to start medications for his problems with ADHD today. Mental Status Exam 2 MSE Comments: This is a slender white male in hospital scrubs with limited grooming and eye contact. No abnormal involuntary motor movements appreciated except for bouncing around the unit in a gleeful manner. He was cooperative with exam in mild distress. Speech was normal in rate and volume. Mood described as fine. Affect was odd and subdued. Thought process was linear and organized. Thought content: Patient denied suicidal or homicidal ideation, There were no delusions reported or noted, he denied auditory or visual hallucinations. Attention and concentration appeared intact and memory was somewhat unreliable but likely intentionally so but none were formally tested. He is alert and oriented x 3. Insight and judgment are limited and impulse control is impaired. Vitals/I&O/Wt Last Vital Signs Temp 98 F 08/26/24 14:00 Pulse 107 H 08/26/24 14:00 Resp 16 08/26/24 14:00 BP 140/93 08/26/24 14:00 Pulse Ox 96 08/26/24 14:00 O2 Del Method Room Air 08/26/24 14:00 Weight last 48 hrs Weight 91.354 kg Data NPU 08/21/24 11:18 08/21/24 11:18 A&P Assessment and plan (1) Bipolar 2 disorder: (2) Suicidal ideation: (3) Opioid dependence: (4) ADD (attention deficit disorder): (5) Anxiety and depression: (6) Suicidal ideation: (7) Methamphetamine use disorder, severe: (8) Alcohol use disorder, severe, dependence: (9) Suicidal ideation: Plan Patient is a 29-year-old white male who presents on his sixth hospitalization since September 2023 who has been previously admitted with suicidal ideation with a history of panic disorder, bipolar 2 disorder, ADHD and opioid dependence on methadone with previous history of being treated with Klonopin and Ritalin for reported ADHD. He presents on a guardianship hold as his mother and his who are co-guardians and an affidavit from the police. He reports an argument with his led to this hospitalization but denies a need for said hospitalization. Unlike last time this time UDS was positive for cannabis and amphetamines and his BAL was lower than last time at 46. 1. Encourage individual, group and milieu therapy. 2. Continue every 15 minute checks for safety. 3. Recommend sober living treatment at the highest level of care to which the patient is willing to commit. 4. Continue Methadone as prescribed, increase abilify to 20mg daily. Consider antidepressant, 5. Obtain collateral information. Talk to his guardian/ and she reports that the reason for the conflict that he got him hospitalized was that he arrived at her place of residence unannounced intoxicated and belligerent and that is how things got started and that he has been being dishonest when talking to people about what is going on and she is clear that she does not provide him alcohol. 6. Work with guardians for appropriate plan. PDMP PDMP Reviewed: Not Reviewed Involuntary Hold Information 2 Hold Status: Legal Status: Active Guardianship 96 Hour Hold: 96 Hour Involuntary Admission: Yes Other Hold: Hold End Date: 03/15/24 Attestations NPU 2 Medical Necessity Statement*: Inpatient hospitalization is medically necessary and the clinically appropriate intervention at this time. We will monitor/initiate medications and make changes as indicated. Likely length of stay is 3-5 days. Coding Level of Care Code Acute Code for g Fwd Diagnoses Bipolar 2 disorder F31.81 Suicidal ideation R45.851 Opioid dependence with opioid-induced mood disorder F11.24 Substance use status: with opioid-induced mood disorder Attention deficit hyperactivity disorder (ADHD), predominantly inattentive type F90.0 Hyperactivity presence: present Attention deficit-hyperactivity disorder type: predominantly inattentive Anxiety and depression F41.9; F32.9 Methamphetamine use disorder, severe F15.20 Alcohol use disorder, severe, dependence F10.20
[2024-08-26 20:00] VITALS: BP 112/74; PULSE 94; RESP 18; TEMP 36.5; O2SAT 98
[2024-08-27 06:00] VITALS: BP 112/70; PULSE 75; RESP 16; TEMP 36.5; O2SAT 96
[2024-08-27 08:15] VITALS: BP 121/83; PULSE 100; RESP 18; O2SAT 96
[2024-08-27 08:17] VITALS: RESP 18; O2SAT 96
[2024-08-27 14:00] VITALS: BP 113/81; PULSE 99; RESP 15; O2SAT 97
--- NOTE | 2024-08-27 14:51 | P.NPUPN_ITS ---
Subjective NPU 2 Subjective: 29-year-old male admitted with suicidal ideation with a history of alcohol abuse, opiate dependence and methamphetamine abuse. The patient once again stated that he felt ready to go home. He had stated that he would return to live with his when he r left the hospital. The patient had stated that he was agreeable to considering rehabilitation. Patient was informed that he may be placed in a skilled nursing. Patient reported no suicidal ideation at this time. He denied any depression. The patient appeared compliant on the milieu. Mental Status Exam 2 MSE Comments: This is a slender white male in hospital scrubs with limited grooming and eye contact. No abnormal involuntary motor movements appreciated except for bouncing around the unit in a gleeful manner. He appeared almost laissez faire about being here in the hospital. He was cooperative with exam in mild distress. Speech was normal in rate and volume. Mood described as fine. Affect was odd, inappropriate and subdued. Thought process was linear and organized. Thought content: Patient denied suicidal or homicidal ideation, There were no delusions reported or noted, he denied auditory or visual hallucinations. Attention and concentration appeared intact and memory was somewhat unreliable but likely intentionally so but none were formally tested. He is alert and oriented x 3. Insight and judgment are limited and impulse control is impaired. Vitals/I&O/Wt Last Vital Signs Temp 97.7 F 08/27/24 06:00 Pulse 99 08/27/24 14:00 Resp 15 08/27/24 14:00 BP 113/81 08/27/24 14:00 Pulse Ox 97 08/27/24 14:00 O2 Del Method Room Air 08/27/24 14:00 Weight last 48 hrs Weight 91.354 kg Data NPU 08/21/24 11:18 08/21/24 11:18 A&P Assessment and plan (1) Bipolar 2 disorder: (2) Suicidal ideation: (3) Opioid dependence: (4) ADD (attention deficit disorder): (5) Anxiety and depression: (6) Suicidal ideation: (7) Methamphetamine use disorder, severe: (8) Alcohol use disorder, severe, dependence: (9) Suicidal ideation: Plan Patient is a 29-year-old white male who presents on his sixth hospitalization since September 2023 who has been previously admitted with suicidal ideation with a history of panic disorder, bipolar 2 disorder, ADHD and opioid dependence on methadone with previous history of being treated with Klonopin and Ritalin for reported ADHD. He presents on a guardianship hold as his mother and his who are co-guardians and an affidavit from the police. He reports an argument with his led to this hospitalization but denies a need for said hospitalization. Unlike last time this time UDS was positive for cannabis and amphetamines and his BAL was lower than last time at 46. 1. Encourage individual, group and milieu therapy. 2. Continue every 15 minute checks for safety. 3. Recommend sober living treatment at the highest level of care to which the patient is willing to commit. 4. Continue Methadone as prescribed, increase abilify to 20mg daily. Consider antidepressant, 5. Obtain collateral information. Talk to his guardian/ and she reports that the reason for the conflict that he got him hospitalized was that he arrived at her place of residence unannounced intoxicated and belligerent and that is how things got started and that he has been being dishonest when talking to people about what is going on and she is clear that she does not provide him alcohol. 6. Work with guardians for appropriate plan. Patient may require skilled nursing placement. PDMP PDMP Reviewed: Not Reviewed Involuntary Hold Information 2 Hold Status: Legal Status: 96 Hour Hold Date/Time Hold Expires: 08/27/24 at 11:25 96 Hour Hold: 96 Hour Involuntary Admission: Yes Other Hold: Hold End Date: 03/15/24 Attestations NPU 2 Medical Necessity Statement*: Inpatient hospitalization is medically necessary and the clinically appropriate intervention at this time. We will monitor/initiate medications and make changes as indicated. Likely length of stay is 3-5 days. Coding Level of Care Code Acute Code for [facility] Fwd Diagnoses Bipolar 2 disorder F31.81 Suicidal ideation R45.851 Opioid dependence with opioid-induced mood disorder F11.24 Substance use status: with opioid-induced mood disorder Attention deficit hyperactivity disorder (ADHD), predominantly inattentive type F90.0 Attention deficit-hyperactivity disorder type: predominantly inattentive Hyperactivity presence: present Anxiety and depression F41.9; F32.9 Methamphetamine use disorder, severe F15.20 Alcohol use disorder, severe, dependence F10.20
[2024-08-27 19:35] VITALS: BP 100/59; PULSE 66; RESP 16; TEMP 37; O2SAT 96
[2024-08-28 06:00] VITALS: BP 105/60; PULSE 63; RESP 16; O2SAT 98
[2024-08-28 07:39] VITALS: RESP 16; O2SAT 98
[2024-08-28 13:58] VITALS: BP 100/54; PULSE 61; RESP 18; TEMP 36.7; O2SAT 97
--- NOTE | 2024-08-28 14:55 | P.NPUPN_ITS ---
Subjective NPU 2 Subjective: 29-year-old male admitted with suicidal ideation with a history of alcohol abuse, opiate dependence and methamphetamine abuse. The patient denied any depression. He had again asked if he could be restarted on a stimulant for treating ADHD. He had appeared to attend groups briefly but had appeared easily distracted and asked to leave the group early. He had reported adequate sleep. He had stated that he would go back to the living with his once he was discharged. The patient's legal guardian had stated that she did not wish for the team to pursue level 2 at this time. He denied any feelings of hopelessness or worthlessness. Mental Status Exam 2 MSE Comments: This is a slender white male in hospital scrubs with limited grooming and eye contact. He had a disheveled appearance. No abnormal involuntary motor movements appreciated except for odd mannerisms appreciated. He remained laissez faire about being in the hospital. He was cooperative with exam in mild distress. Speech was normal in rate and volume. Mood described as fine. Affect was odd, inappropriate and subdued. Thought process was linear and organized. Thought content: Patient denied suicidal or homicidal ideation, There were no delusions reported or noted, he denied auditory or visual hallucinations. Attention and concentration appeared intact and memory was somewhat unreliable but likely intentionally so but none were formally tested. He is alert and oriented x 3. Insight and judgment are limited and impulse control is impaired. Vitals/I&O/Wt Last Vital Signs Temp 98.0 F 08/28/24 13:58 Pulse 61 08/28/24 13:58 Resp 18 08/28/24 13:58 BP 100/54 08/28/24 13:58 Pulse Ox 97 08/28/24 13:58 O2 Del Method Room Air 08/28/24 13:58 Data NPU 08/21/24 11:18 08/21/24 11:18 A&P Assessment and plan (1) Bipolar 2 disorder: (2) Suicidal ideation: (3) Opioid dependence: (4) ADD (attention deficit disorder): (5) Anxiety and depression: (6) Suicidal ideation: (7) Methamphetamine use disorder, severe: (8) Alcohol use disorder, severe, dependence: (9) Suicidal ideation: Plan Patient is a 29-year-old white male who presents on his sixth hospitalization since September 2023 who has been previously admitted with suicidal ideation with a history of panic disorder, bipolar 2 disorder, ADHD and opioid dependence on methadone with previous history of being treated with Klonopin and Ritalin for reported ADHD. He presents on a guardianship hold as his mother and his who are co-guardians and an affidavit from the police. He reports an argument with his led to this hospitalization but denies a need for said hospitalization. Unlike last time this time UDS was positive for cannabis and amphetamines and his BAL was lower than last time at 46. 1. Encourage individual, group and milieu therapy. 2. Continue every 15 minute checks for safety. 3. Recommend sober living treatment at the highest level of care to which the patient is willing to commit. 4. Continue Methadone as prescribed, increase abilify to 20mg daily. Consider antidepressant, 5. He would likely benefit from substance abuse treatment inpatient at this time. 6. Work with guardians for appropriate plan. Patient may require group home placement. PDMP PDMP Reviewed: Not Reviewed Involuntary Hold Information 2 Hold Status: Legal Status: Active Guardianship Date/Time Hold Expires: 0 08/27/24 at 11:25 96 Hour Hold: 96 Hour Involuntary Admission: Yes Other Hold: Hold End Date: 03/15/24 Attestations NPU 2 Medical Necessity Statement*: Inpatient hospitalization is medically necessary and the clinically appropriate intervention at this time. We will monitor/initiate medications and make changes as indicated. Likely length of stay is 1-2 days. Coding Level of Care Code Acute Code for [facility] Fwd Diagnoses Bipolar 2 disorder F31.81 Suicidal ideation R45.851 Opioid dependence with opioid-induced mood disorder F11.24 Substance use status: with opioid-induced mood disorder Attention deficit hyperactivity disorder (ADHD), predominantly inattentive type F90.0 Hyperactivity presence: present Attention deficit-hyperactivity disorder type: predominantly inattentive Anxiety and depression F41.9; F32.9 Methamphetamine use disorder, severe F15.20 Alcohol use disorder, severe, dependence F10.20
[2024-08-28 19:19] VITALS: BP 115/74; PULSE 68; RESP 19; TEMP 36.3; O2SAT 95
[2024-08-29 06:00] VITALS: BP 105/54; PULSE 63; RESP 16; O2SAT 96
[2024-08-29 08:55] VITALS: O2SAT 94
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
[2024-08-29 14:00] VITALS: BP 110/74; PULSE 74; RESP 16; TEMP 36.8; O2SAT 98
[2024-08-29 14:11] VITALS: BP 105/54; PULSE 63; RESP 16; TEMP 36.3; O2SAT 94
== END 2024-08-29 14:21 | disposition home or self-care (01) | DRG 885 ==
LOC: ER 11:28 → NP 11:32
PROVIDERS: Admitting Provider Psychiatry & Neurology Psychiatry; Emergency Provider Emergency Medicine; PCP Family Medicine; Visit Provider Psychiatry & Neurology Psychiatry
DX: F31.81 Bipolar II disorder (principal); R45.851 Suicidal ideations; F15.20 Other stimulant dependence, uncomplicated; F11.24 Opioid dependence with opioid-induced mood disorder; F90.0 Attention-deficit hyperactivity disorder, predominantly inattentive type; F41.9 Anxiety disorder, unspecified; F10.20 Alcohol dependence, uncomplicated; Y90.2 Blood alcohol level of 40-59 mg/100 ml
CPT/HCPCS: 36415; 80053; 80306; 80307; 85025; 97150; 97165; 99285; J9999; Q0162